=== PATIENT | female | born 1940 | race Caucasian/White ===

== ENCOUNTER 2018-08-03 16:04 | Outpatient (CLI) | payer MEDICARE, BC | END 2018-08-03 16:05 | disposition critical access hospital (66) | LOC: EMS 16:04 | PROVIDERS: ATTEND Surgery | DX: R07.81 Pleurodynia (principal); R05 Cough; R09.89 Other specified symptoms and signs involving the circulatory and respiratory systems | CPT/HCPCS: A0425; A0427 ==

== ENCOUNTER 2018-08-03 16:44 | Emergency (ER) | payer MEDICARE, BC ==
--- NOTE | 2018-08-03 17:33 | ED Physician Documentation ---
PD HPI DYSPNEA - Stated complaint Stated Complaint: L RIB PX/ COUGH - Chief complaint Chief Complaint: Resp - History obtained from History obtained from: Patient - History of Present Illness Timing - onset: How many days ago (She has had pain in the left anterolateral chest over the last several days associated with the coughing and breathing. She has had general weakness progressively over the last several days in particular.), How many weeks ago (has had cough and dyspnea with wheezing for 5- 6 weeks. This is worse the past 1-2 weeks and has had left chest pain with cough and breathing for the past week, worsening. Very weak. Has history of COPD.) Timing - onset during: Light activity, Other (breathing) Timing - duration: Days, Weeks Timing - details: Gradual onset Inciting event(s): URI (has had cough and dyspnea the past few weeks, worsening the past week.) Improved by: O2, Inhaler/neb Worsened by: Coughing Associated symptoms: Cough, Wheezing, Chest pain / discomfort (left chest the past week). No: Fever Similar symptoms before: Has not had sx before Review of Systems Constitutional: reports: Myalgias. denies: Fever Ears: denies: Ear pain Nose: reports: Rhinorrhea / runny nose, Congestion Throat: denies: Sore throat Respiratory: reports: Dyspnea, Cough, Wheezing GI: reports: Nausea. denies: Abdominal Pain, Vomiting, Diarrhea : denies: Dysuria Skin: denies: Rash, Lesions Neurologic: reports: Generalized weakness, Confused (the past day or two). denies: Focal weakness, Numbness, Syncope Endocrine: denies: Weight loss Immunocompromised: denies: Immunocompromised PD PAST MEDICAL HISTORY - Past Medical History Cardiovascular: High cholesterol Respiratory: Emphysema Endocrine/Autoimmune: HyPOthyroidism GI: None : None HEENT: Chronic hearing loss Psych: Depression, Anxiety Musculoskeletal: Other Derm: None - Past Surgical History Past Surgical History: Yes Ortho: Other HEENT: Cataracts - Present Medications Home Medications: Ambulatory Orders Medication Instructions Recorded Confirmed Atorvastatin Calcium 40 mg PO DAILY 04/07/16 04/08/16 Doxepin HCl 250 mg ORAL QPM 04/07/16 04/08/16 Hydrocodone/Acetaminophen 1 tab PO DAILY PRN 04/07/16 04/08/16 [Hydrocodon-Acetaminophen 5-325] ALPRAZolam [Xanax] 0.5 mg PO TID tablet 04/08/16 Acetaminophen [Tylenol] 650 mg PO Q4HR PRN #0 tablet 04/08/16 Albuterol 2.5 mg INH RTQ4H PRN #0 neb 04/08/16 Albuterol Sulfate [Ventolin Hfa] 2 puffs INH QID PRN 04/08/16 04/08/16 Levothyroxine [Synthroid] 100 mcg PO DAILY tablet 04/08/16 Lisinopril 1 tab PO DAILY 08/03/18 08/03/18 - Allergies Allergies/Adverse Reactions: Allergies Allergy/AdvReac Type Severity Reaction Status Date / Time No Known Drug Allergies Allergy Verified 08/03/18 16:59 - Social History Does the pt smoke?: No Smoking Status: Never smoker Does the pt drink ETOH?: No Does the pt have substance abuse?: No - Family History Family history: reports: Non contributory - POLST Patient has POLST: No PD ED PE NORMAL - Vitals Vital signs reviewed: Yes - General General: No acute distress, Well developed/nourished. No: Alert and oriented X 3 (somewhat confused, pale, but conversant. ) - HEENT HEENT: Pharynx benign. No: Moist mucous membranes - Neck Neck: Supple, no meningeal sign, No adenopathy - Cardiac Cardiac: No murmur. No: RRR (tachycardic, regular, no murmur. ) - Respiratory Respiratory: No respiratory distress, Other (some scattered wheezing noted. ). No: Clear bilaterally (decreased with coarse sounds left chest and base. Some tenderness left lateral lower chest wall. No rash nor sores. ) - Abdomen Abdomen: Normal bowel sounds, Soft, Non tender - Female Female : Deferred - Rectal Rectal: Deferred - Back Back: No CVA TTP - Derm Derm: Warm and dry, No rash. 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 No: Alert and oriented X 3 (oriented to person and place, but not time) Eye Opening: Spontaneous Motor: Obeys Commands Verbal: Oriented GCS Score: 15 Results - Vitals Vitals: Vital Signs - 24 hr 08/03/18 08/03/18 08/03/18 16:55 17:14 18:03 Temperature 36.7 C Heart Rate 96 130 H 128 H Respiratory 22 23 20 Rate Blood Pressure 92/65 86/69 L O2 Saturation 94 98 08/03/18 08/03/18 08/03/18 18:18 19:43 20:24 Temperature Heart Rate 125 H 110 H 105 H Respiratory 17 16 16 Rate Blood Pressure 115/88 H 80/50 L 83/51 L O2 Saturation 97 97 100 08/03/18 08/03/18 08/03/18 20:58 21:16 21:30 Temperature Heart Rate 108 H 109 H 111 H Respiratory 16 18 14 Rate Blood Pressure 87/49 L 78/51 L 90/49 L O2 Saturation 98 98 98 08/03/18 08/03/18 08/03/18 21:50 22:19 23:04 Temperature Heart Rate 110 H 113 H 114 H Respiratory 16 16 16 Rate Blood Pressure 99/63 110/61 93/60 O2 Saturation 100 98 90 L Oxygen O2 Source Room air Oxygen Flow Rate 3 - Labs Labs: Laboratory Tests 08/03/18 08/03/18 08/03/18 17:30 17:30 17:30 WBC 33.2 H RBC 4.16 L Hgb 12.9 Hct 40.4 MCV 97.0 MCH 30.9 MCHC 31.9 L RDW 14.6 Plt Count 370 MPV 7.5 L Neut # (Auto) Not Reportable Lymph # (Auto) Not Reportable [place] # (Auto) Not Reportable Eos # (Auto) Not Reportable Baso # (Auto) Not Reportable Absolute Nucleated RBC Not Reportable Total Counted 100 Band Neuts % (Manual) 8 Abnorm Lymph % (Manual) 0 Nucleated RBC % Not Reportable Neutrophils # (Manual) 31.9 H Lymphocytes # (Manual) 0.3 L Monocytes # (Manual) 1.0 Eosinophils # (Manual) 0.0 Basophils # (Manual) 0.0 Differential Comment MANUAL DIFFERENTIAL Manual Slide Review Indicated Platelet Estimate NORMAL (130-450,000) Platelet Morphology NORMAL APPEARANCE RBC Morph Micro Appear NORMAL APPEARANCE Sodium 131 L Potassium 4.5 Chloride 100 L Carbon Dioxide 22 Anion Gap 9.0 BUN 22 H Creatinine 1.4 H Estimated GFR (MDRD) 37 L Glucose 92 Lactic Acid Calcium 8.8 Magnesium Total Bilirubin 1.1 H AST 29 ALT 15 Alkaline Phosphatase 154 H Troponin I < 0.04 B-Natriuretic Peptide Total Protein 6.4 L Albumin 2.5 L Globulin 3.9 Albumin/Globulin Ratio 0.6 L Lipase 17 L Urine Color Urine Clarity Urine pH Ur Specific [place] Urine Protein Urine Glucose (UA) Urine Ketones Urine Occult Blood Urine Nitrite Urine Bilirubin Urine Urobilinogen Ur Leukocyte Esterase Ur Microscopic Review Urine Culture Comments 08/03/18 08/03/18 08/03/18 18:16 18:16 18:16 WBC RBC Hgb Hct MCV MCH MCHC RDW Plt Count MPV Neut # (Auto) Lymph # (Auto) [place] # (Auto) Eos # (Auto) Baso # (Auto) Absolute Nucleated RBC Total Counted Band Neuts % (Manual) Abnorm Lymph % (Manual) Nucleated RBC % Neutrophils # (Manual) Lymphocytes # (Manual) Monocytes # (Manual) Eosinophils # (Manual) Basophils # (Manual) Differential Comment Manual Slide Review Platelet Estimate Platelet Morphology RBC Morph Micro Appear Sodium Potassium Chloride Carbon Dioxide Anion Gap BUN Creatinine Estimated GFR (MDRD) Glucose Lactic Acid 2.1 Calcium Magnesium 2.1 Total Bilirubin AST ALT Alkaline Phosphatase Troponin I B-Natriuretic Peptide 84 Total Protein Albumin Globulin Albumin/Globulin Ratio Lipase Urine Color Urine Clarity Urine pH Ur Specific [place] Urine Protein Urine Glucose (UA) Urine Ketones Urine Occult Blood Urine Nitrite Urine Bilirubin Urine Urobilinogen Ur Leukocyte Esterase Ur Microscopic Review Urine Culture Comments 08/03/18 22:55 WBC RBC Hgb Hct MCV MCH MCHC RDW Plt Count MPV Neut # (Auto) Lymph # (Auto) [place] # (Auto) Eos # (Auto) Baso # (Auto) Absolute Nucleated RBC Total Counted Band Neuts % (Manual) Abnorm Lymph % (Manual) Nucleated RBC % Neutrophils # (Manual) Lymphocytes # (Manual) Monocytes # (Manual) Eosinophils # (Manual) Basophils # (Manual) Differential Comment Manual Slide Review Platelet Estimate Platelet Morphology RBC Morph Micro Appear Sodium Potassium Chloride Carbon Dioxide Anion Gap BUN Creatinine Estimated GFR (MDRD) Glucose Lactic Acid Calcium Magnesium Total Bilirubin AST ALT Alkaline Phosphatase Troponin I B-Natriuretic Peptide Total Protein Albumin Globulin Albumin/Globulin Ratio Lipase Urine Color YELLOW Urine Clarity CLEAR Urine pH 5.5 Ur Specific [place] 1.025 Urine Protein NEGATIVE Urine Glucose (UA) NEGATIVE Urine Ketones NEGATIVE Urine Occult Blood NEGATIVE Urine Nitrite NEGATIVE Urine Bilirubin NEGATIVE Urine Urobilinogen 0.2 (NORMAL) Ur Leukocyte Esterase NEGATIVE Ur Microscopic Review NOT INDICATED Urine Culture Comments NOT INDICATED - Rads (name of study) chest xray Radiology: Prelim report reviewed (left effusion and infiltrate. See report), See rad report chest CT Radiology: Prelim report reviewed (loculated effusion on left. Consolidation of lower lobe. see final report. ) PD MEDICAL DECISION MAKING - ED course Complexity details: reviewed results, re-evaluated patient (She is given a nebulizer treatment and also IV fluids with fluid bolusing of a couple of liters. This improved her blood pressure slowly and decreased her heart rate. However she did have chest x-ray showing likely significant pneumonia and effusion and had an elevated white count of 33,000. Her lactate was not abnormal but she still had markers of tachycardia and hypotension suggesting sepsis. I talked with her hospitalist and we do not have any ICU beds available and the patient did not seem to meet floor criteria. We therefore look to transfer her to another facility. Their first request was [facility] but they did not have any hospital beds available. The patient has been to [facility] previously and her insurance is affiliated with them so I talked with Debi Garcia and they are able to accept the patient there. She does have improved heart rate and her blood pressure has been either above 100 systolic or recent reading of 92/65. I reviewed those numbers with the hospitalist from [facility] and he thought she would meet intermediate to level of care criteria and did not need ICU at their facility. The patient is transferred to their for further care. She did receive IV fluids as well as antibiotics here for infection.), considered differential, d/w patient Departure - Departure Disposition: 02 Transfer Acute Care Hosp Clinical Impression: COPD exacerbation, Tachycardia, Pleural effusion, left Pneumonia Qualifiers: Pneumonia type: due to unspecified organism Laterality: left Lung location: unspecified part of lung Qualified Code(s): J18.9 - Pneumonia, unspecified organism Dyspnea Qualifiers: Dyspnea type: shortness of breath Qualified Code(s): R06.02 - Shortness of breath Condition: Stable Record reviewed to determine appropriate education?: Yes
[2018-08-03 17:37] LABS: BASOPHILS % (AUTO) 0.1 %; HGB - HEMOGLOBIN 12.9 g/dL (12.0-16.0); LYMPHOCYTES % (AUTO) 2.8 %; MEAN CORPUSCULAR HEMOGLOBIN 30.9 pg (27.0-31.0); MEAN CORPUSCULAR HGB CONC 31.9 g/dL (32.0-36.0); MEAN PLATELET VOLUME 7.5 fL (7.9-10.8); MONOCYTES % (AUTO) 3.5 %; NEUTROPHILS % (AUTO) 93.6 %; PLT - PLATELET COUNT 370 10^3/uL (130-450); RED BLOOD COUNT 4.16 10^6/uL (4.20-5.40); RED CELL DISTRIBUTION WIDTH 14.6 % (12.0-15.0); WHITE BLOOD COUNT 33.2 x10^3/uL (4.8-10.8)
[2018-08-03 17:45] LABS: ABNORMAL LYMPHS % (MANUAL) 0 %
[2018-08-03 17:51] LABS: ALBUMIN 2.5 g/dL (3.2-5.5); ALBUMIN/GLOBULIN RATIO 0.6 (1.0-2.2); BILIRUBIN,TOTAL 1.1 mg/dL (0.2-1.0); CALCIUM 8.8 mg/dL (8.5-10.3); CREATININE 1.4 mg/dL (0.4-1.0); TOTAL PROTEIN 6.4 g/dL (6.7-8.2)
[2018-08-03] MEDS ORDERED: IPRATROPIUM/ALBUTEROL 3 ML NEB INH STA (17:51)
[2018-08-03] MEDS ORDERED: MORPHINE 10 MG/ML VIAL IVP STA (17:51)
[2018-08-03] MEDS ORDERED: KETOROLAC 15 MG/ML VIAL IVP STA (17:51)
[2018-08-03] MEDS ORDERED: SODIUM CHLORIDE 0.9% 1,000 ML IV ONE ×3 (17:52→20:13)
[2018-08-03 18:06] LABS: BAND NEUTROPHILS % (MANUAL) 8 %; LYMPHOCYTES # (MANUAL) 0.3 10^3/uL (1.5-3.5); LYMPHOCYTES % (MANUAL) 1 %; NEUTROPHILS # (MANUAL) 31.9 10^3/uL (1.5-6.6); NEUTROPHILS % (MANUAL) 88 %
[2018-08-03 18:07] LABS: PLATELET MORPHOLOGY NORMAL APPEARANCE (NORMAL); RBC MORPHOLOGY (MULTIPLE) NORMAL APPEARANCE (NORMAL)
[2018-08-03 18:08] LABS: DIFFERENTIAL COMMENT MANUAL DIFFERENTIAL; PLATELET ESTIMATE, MANUAL NORMAL (130-450,000) (NORMAL)
[2018-08-03] MEDS ORDERED: cefTRIAXone 1 GM VIAL IVP STA (19:05)
[2018-08-03] MEDS ORDERED: AZITHROMYCIN INJ 500 MG in SODIUM CHLORIDE 0.9% 250 ML IV STA (19:05)
--- NOTE | 2018-08-03 19:31 | XRAY Report ---
Reason: cough rib pain Procedure Date: 08/03/2018 Accession Number: [id number] / [id number] Procedure: XR - Ribs w/PA Chest LT CPT Code: FULL RESULT: EXAM: LEFT RIB RADIOGRAPHY. EXAM DATE: 08/03/2018 06:57 PM. CLINICAL HISTORY: Cough , left rib pain. Confusion. No known trauma. COMPARISON: None. TECHNIQUE: 1 view of the chest and 2 views of the ribs. FINDINGS: Bones: Suspect lytic expansile lesion anterior aspect left sixth rib. Lungs: Extensive pleural and parenchymal opacities. No pneumothorax. Right lung is clear. Mediastinum: Mild [id number] mediastinal shift. Other: None. IMPRESSION: Suspect inflammatory or malignant process involving the left hemithorax. CT chest with contrast recommended. RADIA
[2018-08-03] MEDS ORDERED: DEXAMETHASONE 10 MG/ML VIAL IVP STA (19:58)
[2018-08-03] MEDS ORDERED: IOVERSOL 320 100 ML VIAL IVP ONE ×2 (21:24→21:54)
--- NOTE | 2018-08-03 22:20 | CT Report ---
Reason: left chest infiltrate/ possible mass Procedure Date: 08/03/2018 Accession Number: [id number] / [id number] Procedure: CT - Chest W/ CPT Code: FULL RESULT: EXAM: CT CHEST EXAM DATE: 08/03/2018 09:52 PM. CLINICAL HISTORY: Left chest infiltrate/ possible mass. COMPARISONS: None. TECHNIQUE: Routine helical CT imaging was performed through the chest. IV contrast: 80 mL [id number]. Reconstructions: Coronal and sagittal. In accordance with CT protocol optimization, one or more of the following dose reduction techniques were utilized for this exam: automated exposure control, adjustment of mA and/or KV based on patient size, or use of iterative reconstructive technique. FINDINGS: Lungs and Pleura: Moderate consolidation is noted within the lingula. Heterogeneous density of the medial portion of the lingula is noted (image 40 series 3). It is uncertain if this represents an area of infection versus developing abscess. Consolidation noted within the anterior portion of the left lower lobe, with features suggestive of compressive atelectasis. There is a loculated medium to large left-sided pleural effusion. Slight enhancement of the pleural lining is noted, with adjacent fat stranding of the mediastinum. Findings raise the possibility of empyema. There is mild atelectatic change within the right lower lobe. Central Airways: Visualized central airways are without suspicious filling defects. Chest Wall: Small as well as mildly enlarged anterior cardiophrenic angle lymph nodes are noted, measuring up to 11.1 mm. Thyroid: No significant abnormality. Mediastinum: Increased number of small as well as borderline enlarged mediastinal lymph nodes are noted in the subcarinal location. Heart: Normal in size. No significant pericardial effusion. Aorta: Normal caliber. Upper Abdomen: Moderate hepatic steatosis is present. Severe calcific atherosclerosis. Bones: No suspicious bony lesions evident. Bones are osteopenic. There is a superior endplate compression fracture of L1 of undetermined age. Multilevel degenerative change within the spine. IMPRESSION: 1. Small to medium-sized area of lingular consolidation. Heterogeneous appearance of the consolidated portion with rounded configuration is noted medially. This measures 2.5 cm. This may be tumefactive infection versus a pulmonary parenchymal abscess. 2. Underlying neoplasm is felt to be less likely, but difficult to entirely exclude. As a result, consider follow-up examination at 1 month after treatment to assess for interim change. If there are no clinical or biochemical markers of infection, further assessment could be considered with a PET/CT. 3. There is a medium to large left-sided effusion. Subtle pleural enhancement and adjacent mediastinal fat stranding raise the possibility of underlying empyema. Loculated component noted, especially posturally. 4. Mild mediastinal subcarinal lymphadenopathy, presumed reactive. RADIA
[2018-08-03 22:59] LABS: BILIRUBIN,URINE NEGATIVE (NEGATIVE); GLUCOSE, URINE (UA) NEGATIVE (NEGATIVE); KETONES,URINE (UA) NEGATIVE (NEGATIVE); LEUKOCYTE ESTERASE, URINE NEGATIVE (NEGATIVE); NITRITE,URINE NEGATIVE (NEGATIVE); OCCULT BLOOD,URINE NEGATIVE (NEGATIVE); PH,URINE 5.5 PH (5.0-7.5); PROTEIN,URINE NEGATIVE (NEGATIVE); UROBILINOGEN,URINE 0.2 (NORMAL) E.U./dL (NORMAL)
[2018-08-03 23:02] LABS: CLARITY,URINE CLEAR (CLEAR)
[2018-08-03 23:05] VITALS: BP 93/60
== END 2018-08-03 23:48 | disposition short-term general hospital (02) ==
LOC: EDUNIT# → ED 16:44
DX: J18.9 Pneumonia, unspecified organism (principal); J44.1 Chronic obstructive pulmonary disease with (acute) exacerbation; R00.0 Tachycardia, unspecified; J90 Pleural effusion, not elsewhere classified; D72.829 Elevated white blood cell count, unspecified; I95.9 Hypotension, unspecified
CPT/HCPCS: 36415; 51702; 71101; 71260; 80053; 81003; 83605; 83690; 83735; 83880; 84484; 85025; 87040; 93005; 94640; 96361; 96365; 96375; 99285; Q9967; 81001; 87086

== ENCOUNTER 2018-08-03 23:27 | Outpatient (CLI) | payer MEDICARE, BC | END 2018-08-03 23:28 | disposition short-term general hospital (02) | LOC: EMS 23:27 | PROVIDERS: ATTEND Surgery | DX: J90 Pleural effusion, not elsewhere classified (principal); R09.89 Other specified symptoms and signs involving the circulatory and respiratory systems; R41.0 Disorientation, unspecified | CPT/HCPCS: A0425; A0426 ==

== ENCOUNTER 2020-05-28 15:26 | Emergency (ER) | payer MEDICARE, OTHER ==
--- NOTE | 2020-05-28 16:33 | ED Physician Documentation ---
History of Present Illness - Stated complaint Stated Complaint: FALL - Chief complaint Chief Complaint: Trauma Ext - History obtained from History obtained from: Patient, Family - History of Present Illness Timing: How many days ago (3) Pain level max: 5 Pain level now: 4 - Additonal information Additional information: 80-year-old female presents to the emergency department complaining of pain to the right hand and wrist. She states that this occurred after a fall 3 days ago. Increased swelling today. She is also having difficulty getting the ring off of the right finger. This was a mechanical fall. Did not strike her head. No headache. No neck or back pain. Worse with movement, better with rest. Patient took 3 Xanax this morning and 3 more prior to coming to the emergency department. states that when she takes that much she slurs her words and becomes drowsy Review of Systems Unable to obtain: Dementia Constitutional: denies: Fever, Chills Respiratory: denies: Cough GI: denies: Nausea, Vomiting, Diarrhea Skin: denies: Rash Musculoskeletal: denies: Neck pain, Back pain Neurologic: denies: Headache, Head injury PD PAST MEDICAL HISTORY - Past Medical History Past Medical History: Yes Cardiovascular: High cholesterol Respiratory: Emphysema Neuro: Dementia Endocrine/Autoimmune: HyPOthyroidism GI: None : None HEENT: Chronic hearing loss Psych: Depression, Anxiety Musculoskeletal: Other Derm: None - Past Surgical History Past Surgical History: Yes Ortho: Other HEENT: Cataracts - Present Medications Home Medications: Ambulatory Orders Medication Instructions Recorded Confirmed Doxepin HCl 250 mg ORAL QPM 04/07/16 05/28/20 ALPRAZolam [Xanax] 0.5 mg PO TID tablet 04/08/16 05/28/20 Albuterol 2.5 mg INH RTQ4H PRN #0 neb 04/08/16 05/28/20 Albuterol Sulfate [Ventolin Hfa] 2 puffs INH QID PRN 04/08/16 05/28/20 Levothyroxine [Synthroid] 100 mcg PO DAILY tablet 04/08/16 05/28/20 lisinopriL [Lisinopril] 1 tab PO DAILY 08/03/18 05/28/20 - Allergies Allergies/Adverse Reactions: Allergies Allergy/AdvReac Type Severity Reaction Status Date / Time No Known Drug Allergies Allergy Verified 08/03/18 16:59 - Social History Does the pt smoke?: No Smoking Status: Never smoker Does the pt drink ETOH?: No Does the pt have substance abuse?: No - Immunizations Immunizations are current?: Yes - POLST Patient has POLST: No PD ED PE NORMAL - Vitals Vital signs reviewed: Yes - General General: No acute distress, Other (alert, oriented x2) - HEENT HEENT: Atraumatic, PERRL, Moist mucous membranes - Neck Neck: Supple, no meningeal sign, No bony TTP - Cardiac Cardiac: RRR - Respiratory Respiratory: No respiratory distress, Clear bilaterally - Derm Derm: Warm and dry - Extremities Extremities: Other (TTP R wrist and R forearm. Swelling and brusing over the hand and wrist. NVI. ring on ring finger) - Neuro Neuro: Other (alert) - Psych Psych: Normal mood, Normal affect Results - Vitals Vitals: Vital Signs - 24 hr 05/28/20 05/28/20 15:41 17:09 Temperature 36.4 C L 37 C Heart Rate 95 88 Respiratory 18 16 Rate Blood Pressure 135/73 H 124/68 O2 Saturation 100 96 Oxygen O2 Source Room air - Rads (name of study) R Forearm x-ray Radiology: Prelim report reviewed, EMP read contemporaneously, See rad report (Distal radial and ulnar fractures ) R hand xray Radiology: Prelim report reviewed, EMP read contemporaneously, See rad report (Distal radial and ulnar fractures ) Procedures - Splint (location) R arm Splint applied by: Physician, Tech Type of splint: Fiberglass, Volar cock up Other: Patient tolerated well, No complications, Neurovascular intact, Sling provided PD MEDICAL DECISION MAKING - ED course Complexity details: reviewed results, re-evaluated patient, considered different ial, d/w patient, d/w family ED course: The ring on the ring finger of the right hand was immediately removed with surgical lube. Tolerated well. X-rays reveal fractures of the distal radius and ulna. Placed in a volar splint. We will have her follow-up with orthopedics. Neurovascular intact. No other acute injuries. Patient and family counseled regarding signs and symptoms for which I believe and urgent re- evaluation would be necessary. Patient with good understanding of and agreement to plan and is comfortable going home at this time This document was made in part using voice recognition software. While efforts are made to proofread this document, sound alike and grammatical errors may occur. Departure - Departure Disposition: 01 Home, Self Care Clinical Impression: Closed fracture distal radius and ulna Qualifiers: Encounter type: initial encounter Laterality: right Qualified Code(s): S52.501A - Unspecified fracture of the lower end of right radius, initial encounter for closed fracture Condition: Good Instructions: ED Fx Upper Ext Follow-Up: Provider,Other [Primary Care Provider] - Within 1 week [facility] [Provider Group] - Within 1 week Comments: Return if you worsen. Follow up with your doctor for further care. Wear the splint until released by orthopedics Discharge Date/Time: 05/28/20 17:05
--- NOTE | 2020-05-28 16:46 | XRAY Report ---
PROCEDURE: Forearm RT INDICATIONS: fall, R forearm/wrist pain TECHNIQUE: 2 views of the forearm were acquired. COMPARISON: None. FINDINGS: Comminuted impacted fracture of the distal radial metaphysis and distal ulna. Chondrocalcinosis incidentally noted IMPRESSION: Distal radial and ulnar fractures Reviewed by: Power Brown MD on 05/28/2020 4:44 PM PDT Approved by: Power Brown MD on 05/28/2020 4:44 PM PDT Station ID: [id number]
--- NOTE | 2020-05-28 16:47 | XRAY Report ---
PROCEDURE: Hand 3 View RT INDICATIONS: fall, R hand pain TECHNIQUE: views of the hand(s) acquired. COMPARISON: None. FINDINGS: Distal radial and ulnar fractures. Chondrocalcinosis incidentally noted. IMPRESSION: Distal radial and ulnar fractures Reviewed by: Power Brown MD on 05/28/2020 4:45 PM PDT Approved by: Power Brown MD on 05/28/2020 4:45 PM PDT Station ID: [id number]
[2020-05-28 17:11] VITALS: BP 124/68
== END 2020-05-28 17:05 | disposition home or self-care (01) ==
LOC: ED 15:26
DX: S52.501A Unspecified fracture of the lower end of right radius, initial encounter for closed fracture (principal); S52.601A Unspecified fracture of lower end of right ulna, initial encounter for closed fracture; W19.XXXA Unspecified fall, initial encounter; Y92.002 Bathroom of unspecified non-institutional (private) residence as the place of occurrence of the external cause
CPT/HCPCS: 29105; 93005

== ENCOUNTER 2020-07-06 17:58 | Outpatient (CLI) | payer MEDICARE, OTHER ==
--- NOTE | 2020-07-06 18:06 | XRAY Report ---
PROCEDURE: Wrist 3 View RT INDICATIONS: COLLES FX OF R RADIUS TECHNIQUE: 3 views of the wrist were acquired. COMPARISON: 05/28/2020 FINDINGS: Bones: 3 views of the wrist demonstrate demineralized bone. Comminuted and impacted fractures of the distal radius and distal ulna are again seen with continued callus formation. There are calcification s in the triangular fibrocartilage consistent with chondrocalcinosis. Soft tissues: No suspicious soft tissue calcifications. IMPRESSION: 1. Healing comminuted and impacted distal radius and ulna fractures. 2. Chondrocalcinosis. Reviewed by: Arnoldo Valdez on 07/06/2020 6:05 PM PST Approved by: Arnoldo Vadlez on 07/06/2020 6:05 PM PST Station ID: [id number]
== END 2020-07-06 23:59 | disposition home or self-care (01) ==
LOC: DI.N 17:58
PROVIDERS: ATTEND Orthopaedic Surgery
DX: S52.531A Colles' fracture of right radius, initial encounter for closed fracture (principal); M11.231 Other chondrocalcinosis, right wrist

== ENCOUNTER 2020-10-02 13:31 | Outpatient (CLI) | payer MEDICARE, OTHER | END 2020-10-02 13:32 | disposition critical access hospital (66) | LOC: EMS 13:31 | PROVIDERS: ATTEND Emergency Medicine | DX: R41.82 Altered mental status, unspecified (principal); R14.0 Abdominal distension (gaseous) | CPT/HCPCS: A0425; A0427 ==

== ENCOUNTER 2020-10-02 14:09 | Inpatient (IN) | payer MEDICARE, OTHER ==
[2020-10-02] MEDS ORDERED: SODIUM CHLORIDE 0.9% IV STA (14:31)
[2020-10-02] MEDS ORDERED: IOVERSOL 320 100 ML VIAL IVP ONE (14:51)
--- NOTE | 2020-10-02 14:59 | XRAY Report ---
PROCEDURE: Chest 1 View X-Ray INDICATIONS: sepsis TECHNIQUE: One view of the chest was acquired. COMPARISON: None FINDINGS: Surgical changes and devices: None. Lungs and pleura: No pleural effusions or pneumothorax. Lungs are clear. Mediastinum: Mediastinal contours appear normal. Heart size is normal. Bones and chest wall: No suspicious bony lesions. Overlying soft tissues appear unremarkable. IMPRESSION: No acute cardiopulmonary pathology. Reviewed by: Esau Aparicio MD on 10/02/2020 2:58 PM PST Approved by: Esau Aparicio MD on 10/02/2020 2:58 PM PST Station ID: [id number]
--- NOTE | 2020-10-02 15:06 | ED Physician Documentation ---
History of Present Illness - Stated complaint Stated Complaint: ALOC - Chief complaint Chief Complaint: Neuro - History obtained from History obtained from: Patient - Additonal information Additional information: Patient is brought to the emergency department by EMS for chief complaint of altered level of consciousness. According to medics, the patient's states that the patient took a fall 3 days ago. She has apparently been at baseline up and till and through midnight last night. At that time, patient had been sleeping and awoke needing to go the bathroom. Her apparently helped her to the bathroom and when she woke up this morning, she seemed confused and drowsy. Patient apparently lives at home and has a history of some degree of dementia with baseline being confused to as to the time, but aware of person and place. Patient apparently can engage in most activities of daily living by herself. She has advanced directive stating DNR with limited interventions, according to medics. They state they did not bring the form with them but the patient's has it with him on the parking lot. Patient's records reveal that patient does not have a history of alcohol abuseongstanding history of anxiety, and has been known to overuse her benzodiazepines. Patient has not consistently been hypotensive in the past. Records reveal she has a history of diabetes and hyperlipidemia, as well as anxiety, depression, and COPD. Review of Systems Unable to obtain: Confused PD PAST MEDICAL HISTORY - Past Medical History Cardiovascular: High cholesterol Respiratory: Emphysema Neuro: Dementia Endocrine/Autoimmune: HyPOthyroidism GI: None : None HEENT: Chronic hearing loss Psych: Depression, Anxiety Musculoskeletal: Other Derm: None - Past Surgical History Past Surgical History: Yes Ortho: Other HEENT: Cataracts - Present Medications Home Medications: Ambulatory Orders Medication Instructions Recorded Confirmed Doxepin HCl 250 mg ORAL QPM 04/07/16 05/28/20 ALPRAZolam [Xanax] 0.5 mg PO TID tablet 04/08/16 05/28/20 Albuterol Sulfate [Ventolin Hfa] 2 puffs INH QID PRN 04/08/16 05/28/20 Albuterol [Proventil] 2.5 mg INH RTQ4H PRN #0 neb 04/08/16 05/28/20 Levothyroxine [Synthroid] 100 mcg PO DAILY tablet 04/08/16 05/28/20 lisinopriL [Lisinopril] 1 tab PO DAILY 08/03/18 05/28/20 - Allergies Allergies/Adverse Reactions: Allergies Allergy/AdvReac Type Severity Reaction Status Date / Time No Known Drug Allergies Allergy Verified 08/03/18 16:59 - Social History Does the pt smoke?: No Smoking Status: Never smoker Does the pt drink ETOH?: No Does the pt have substance abuse?: No - Immunizations Immunizations are current?: Yes - POLST Patient has POLST: No PD ED PE NORMAL - Vitals Vital signs reviewed: Yes - General General: No acute distress, Other (Patient is pale and drowsy. Nearly incomprehensible speech. Arouses to loud voice.) - HEENT HEENT: Atraumatic, PERRL, EOMI, Moist mucous membranes - Neck Neck: Supple, no meningeal sign - Cardiac Cardiac: RRR, No murmur, Strong equal pulses - Respiratory Respiratory: No respiratory distress, Other (Clear bilaterally; decreased air movement bilaterally.) - Abdomen Abdomen: Soft, Other (Marked distention, moderate diffuse tenderness throughout entire abdomen.) - Derm Derm: Warm and dry, No rash, Other (Moderate pallor) - Extremities Extremities: No deformity, No edema, No calf tenderness / cord - Neuro Neuro: Other (Patient moves all 4 extremities passively but does not Distantly follow commands. She does take deep breaths when instructed to do so during exam. Arouses to loud voice and answers to her name, the responses are incomprehensible, due to slurred and unclear speech. No facial droop.) Results - Vitals Vitals: Vital Signs - 24 hr 10/02/20 10/02/20 10/02/20 14:08 14:22 14:35 Temperature 36.1 C L Heart Rate 101 H 96 98 Respiratory 14 19 18 Rate Blood Pressure 91/47 L 92/51 L 95/48 L O2 Saturation 92 100 100 10/02/20 10/02/20 10/02/20 14:50 15:12 15:37 Temperature Heart Rate 98 98 96 Respiratory 24 18 18 Rate Blood Pressure 98/57 L 99/55 L 99/59 L O2 Saturation 100 100 100 10/02/20 10/02/20 15:55 16:24 Temperature 35.5 C L Heart Rate 97 96 Respiratory 23 22 Rate Blood Pressure 101/63 95/67 O2 Saturation 100 100 Oxygen O2 Source Nasal cannula - EKG (time done) 1421 Rate: Rate (enter#) (96) Rhythm: NSR [place]: Normal Intervals: Normal [place] QRS: Normal Ischemia: Non specific changes Compare to prior EKG: Old EKG unavailable Computer interpretation: Agree with computer - Labs Labs: Laboratory Tests 10/02/20 10/02/20 10/02/20 14:59 14:59 14:59 WBC 9.2 RBC 2.94 L Hgb 9.9 L Hct 30.6 L MCV 104.1 H MCH 33.7 H MCHC 32.4 RDW 14.3 Plt Count 141 MPV 10.7 Neut # (Auto) 7.6 H Lymph # (Auto) 0.9 L [place] # (Auto) 0.6 Eos # (Auto) 0.0 Baso # (Auto) 0.1 Absolute Nucleated RBC 0.00 Band Neuts % (Manual) Not Reportable Abnorm Lymph % (Manual) Not Reportable Nucleated RBC % 0.0 Neutrophils # (Manual) Not Reportable Lymphocytes # (Manual) Not Reportable Monocytes # (Manual) Not Reportable Eosinophils # (Manual) Not Reportable Basophils # (Manual) Not Reportable Differential Comment MANUAL=AUTO DIFF Manual Slide Review Indicated Platelet Estimate NORMAL (130-450,000) Platelet Morphology NORMAL APPEARANCE RBC Morph Micro Appear 1+ HYPOCHROMASIA Sodium 141 Potassium 3.6 Chloride 108 Carbon Dioxide 21 Anion Gap 12.0 BUN 70 H Creatinine 2.6 H Estimated GFR (MDRD) 18 L Glucose 78 Lactic Acid 0.9 Calcium 7.5 L Total Bilirubin 0.6 AST 75 H ALT 35 Alkaline Phosphatase 124 H Ammonia Total Protein 4.4 L Albumin 1.9 L Globulin 2.5 Albumin/Globulin Ratio 0.8 L Urine Color Urine Clarity Urine pH Ur Specific [place] Urine Protein Urine Glucose (UA) Urine Ketones Urine Occult Blood Urine Nitrite Urine Bilirubin Urine Urobilinogen Ur Leukocyte Esterase Urine RBC Urine WBC Ur Squamous Epith Cells Urine Bacteria Urine Culture Comments Urine Opiates Screen Ur Oxycodone Screen Urine Methadone Screen Ur Propoxyphene Screen Ur Barbiturates Screen Ur Tricyclics Screen Ur Phencyclidine Scrn Ur Amphetamine Screen U Methamphetamines Scrn U Benzodiazepines Scrn Urine Cocaine Screen U Cannabinoids Screen 10/02/20 10/02/20 14:59 15:15 WBC RBC Hgb Hct MCV MCH MCHC RDW Plt Count MPV Neut # (Auto) Lymph # (Auto) [place] # (Auto) Eos # (Auto) Baso # (Auto) Absolute Nucleated RBC Band Neuts % (Manual) Abnorm Lymph % (Manual) Nucleated RBC % Neutrophils # (Manual) Lymphocytes # (Manual) Monocytes # (Manual) Eosinophils # (Manual) Basophils # (Manual) Differential Comment Manual Slide Review Platelet Estimate Platelet Morphology RBC Morph Micro Appear Sodium Potassium Chloride Carbon Dioxide Anion Gap BUN Creatinine Estimated GFR (MDRD) Glucose Lactic Acid Calcium Total Bilirubin AST ALT Alkaline Phosphatase Ammonia < 10.0 Total Protein Albumin Globulin Albumin/Globulin Ratio Urine Color YELLOW Urine Clarity CLEAR Urine pH 5.5 Ur Specific [place] 1.025 Urine Protein TRACE Urine Glucose (UA) NEGATIVE Urine Ketones NEGATIVE Urine Occult Blood MODERATE H Urine Nitrite NEGATIVE Urine Bilirubin NEGATIVE Urine Urobilinogen 0.2 (NORMAL) Ur Leukocyte Esterase TRACE H Urine RBC 6-10 H Urine WBC 4-5 Ur Squamous Epith Cells RARE Squamous Urine Bacteria Many H Urine Culture Comments INDICATED Urine Opiates Screen POSITIVE H Ur Oxycodone Screen NEGATIVE Urine Methadone Screen NEGATIVE Ur Propoxyphene Screen NEGATIVE Ur Barbiturates Screen NEGATIVE Ur Tricyclics Screen POSITIVE H Ur Phencyclidine Scrn NEGATIVE Ur Amphetamine Screen NEGATIVE U Methamphetamines Scrn NEGATIVE U Benzodiazepines Scrn POSITIVE H Urine Cocaine Screen NEGATIVE U Cannabinoids Screen NEGATIVE - Rads (name of study) head CT Radiology: Final report received, EMP read indepedently, See rad report (NAD) Abd CT Radiology: Final report received, EMP read indepedently, See rad report (Possible colitis; otherwise NAD) PD MEDICAL DECISION MAKING - ED course Complexity details: reviewed old records, reviewed results, re-evaluated patient, considered differential, d/w patient ED course: Pt was worked up with labs, urinalysis, urine drug screen, lactic acid level, ammonia level, and CTs of the head abdomen and pelvis. She had received 1400 cc of normal saline in route by EMS, and had been persistently hypotensive with systolics in the 90s. She did finish the liter of fluid that she was on for a total of 2 L between EMS and ourselves. Labs showed markedly increased BUN and creatinine compared with prior levels from 2019 and previously. Her lactic acid level, ammonia level is, LFTs, and white count were all unremarkable. I suspected the patient was dehydrated and did give her another liter of fluid. She did produce dark yellow urine Via Pereyra catheter which we have placed. Urinalysis showed trace amount of leukocyte esterase with some bacteria and only small amount of white cells. Her urine drug screen was positive for TCAs, benzos, and opiates. Patient continued to have altered mental status, and I felt she should be admitted. I spoke with Dr. Baker, and she did agree to admit the patient to her service. We will hold off on antibiotics for the urine for now, as the pt is afebrile and WBC count is normal. Departure - Departure Disposition: ED Place in Observation Clinical Impression: Dehydration Altered mental status Qualifiers: Altered mental status type: unspecified Qualified Code(s): R41.82 - Altered mental status, unspecified Condition: Serious
[2020-10-02 15:09] LABS: BASOPHILS # (AUTO) 0.1 10^3/uL (0.0-0.1); BASOPHILS % (AUTO) 0.8 %; EOSINOPHILS % (AUTO) 0.1 %; HGB - HEMOGLOBIN 9.9 g/dL (12.0-16.0); LYMPHOCYTES # (AUTO) 0.9 10^3/uL (1.5-3.5); LYMPHOCYTES % (AUTO) 9.9 %; MEAN CORPUSCULAR HEMOGLOBIN 33.7 pg (27.0-31.0); MEAN CORPUSCULAR HGB CONC 32.4 g/dL (32.0-36.0); MEAN CORPUSCULAR VOLUME 104.1 fL (81.0-99.0); MEAN PLATELET VOLUME 10.7 fL (7.9-10.8); MONOCYTES # (AUTO) 0.6 10^3/uL (0.0-1.0); MONOCYTES % (AUTO) 6.3 %; NEUTROPHILS # (AUTO) 7.6 10^3/uL (1.5-6.6); NEUTROPHILS % (AUTO) 82.6 %; PLT - PLATELET COUNT 141 10^3/uL (130-450); RED BLOOD COUNT 2.94 10^6/uL (4.20-5.40); RED CELL DISTRIBUTION WIDTH 14.3 % (12.0-15.0); WHITE BLOOD COUNT 9.2 x10^3/uL (4.8-10.8)
[2020-10-02 15:19] LABS: ALBUMIN 1.9 g/dL (3.2-5.5); ALBUMIN/GLOBULIN RATIO 0.8 (1.0-2.2); BILIRUBIN,TOTAL 0.6 mg/dL (0.2-1.0); CALCIUM 7.5 mg/dL (8.5-10.3); CREATININE 2.6 mg/dL (0.4-1.0); TOTAL PROTEIN 4.4 g/dL (6.7-8.2)
[2020-10-02] MEDS ORDERED: SODIUM CHLORIDE 0.9% 1,000 ML IV STA (15:34)
[2020-10-02 15:37] LABS: MUDS CUTOFF CONCENTRATIONS CUTOFF CONC BELOW:
[2020-10-02 15:40] LABS: GLUCOSE, URINE (UA) NEGATIVE (NEGATIVE); KETONES,URINE (UA) NEGATIVE (NEGATIVE); LEUKOCYTE ESTERASE, URINE TRACE (NEGATIVE); NITRITE,URINE NEGATIVE (NEGATIVE); OCCULT BLOOD,URINE MODERATE (NEGATIVE); PH,URINE 5.5 PH (5.0-7.5); PROTEIN,URINE TRACE mg/dL (NEGATIVE); UROBILINOGEN,URINE 0.2 (NORMAL) E.U./dL (NORMAL)
[2020-10-02 15:41] LABS: CLARITY,URINE CLEAR (CLEAR)
[2020-10-02 15:43] LABS: BILIRUBIN,URINE NEGATIVE (NEGATIVE); ICTOTEST,URINE NEGATIVE
[2020-10-02 15:45] LABS: SQUAMOUS EPITHELIAL CELL,UR RARE Squamous (<= Few)
[2020-10-02 15:46] LABS: BACTERIA,URINE Many /HPF (None Seen)
[2020-10-02 15:49] LABS: AMPHETAMINE SCREEN,URINE NEGATIVE (NEGATIVE); BENZODIAZEPINES SCREEN, URINE POSITIVE (NEGATIVE); COCAINE SCREEN URINE NEGATIVE (NEGATIVE); METHADONE SCREEN, URINE NEGATIVE (NEGATIVE); METHAMPHETAMINES SCREEN, URINE NEGATIVE (NEGATIVE); OPIATE SCREEN, URINE POSITIVE (NEGATIVE); OXYCODONE SCREEN, URINE NEGATIVE (NEGATIVE); PROPOXYPHENE SCREEN, URINE NEGATIVE (NEGATIVE); TRICYCLIC ANTIDEPRESSANT,URINE POSITIVE (NEGATIVE)
--- NOTE | 2020-10-02 16:00 | CT Report ---
PROCEDURE: HEAD WO INDICATIONS: altered LOC TECHNIQUE: Noncontrast 4.5 mm thick angled axial sections acquired from the foramen magnum to the vertex. For r adiation dose reduction, the following was used: automated exposure control, adjustment of mA and/or kV according to patient size. COMPARISON: 04/07/2016 FINDINGS: Image quality: Excellent. CSF spaces: Basal cisterns are patent. No extra-axial fluid collections. Ventricles are normal in size and shape. Brain: No midline shift. No intracranial masses or hemorrhage. [place]-white matter interface is norm al. Brain parenchymal volume loss is seen. Chronic small vessel ischemic change can be seen. Skull and face: Calvarium and visualized facial bones are intact, without suspicious lesions. Sinuses: Visualized sinuses and mastoids are clear. IMPRESSION: Unremarkable intracranial study for age, without an imaging explanation found for the pa paul's presenting history of altered level of consciousness. Reviewed by: Scotty Gaitan MD on 10/02/2020 2:58 PM AKST Approved by: Scotty Gaitan MD on 10/02/2020 2:58 PM [place] Station ID: [id number]
--- NOTE | 2020-10-02 16:16 | CT Report ---
PROCEDURE: Abdomen/Pelvis WO INDICATIONS: abdominal distention, diffuse tend, ALOC TECHNIQUE: Noncontrast 5 mm thick sections acquired from the diaphragms to the symphysis. 5 mm coronal and sagi ttal reformats were then performed. For radiation dose reduction, the following was used: automated exposure control, adjustment of mA and/or kV according to patient size. COMPARISON: None. FINDINGS: Image quality: Excellent. ABDOMEN: Lung bases: Small infiltrate/atelectasis in posterior aspect of right lung base is seen. Heart size i s enlarged, no pericardial effusion. Solid organs: Liver and spleen are normal in size. Gallbladder is distended and shows no gross abno rmality. Pancreas is normal in contours. No adrenal nodules. Kidneys are normal in size, without h ydronephrosis or nephrolithiasis. Peritoneum and bowel: There is no evidence of bowel obstruction. Suggestion of ascending, transverse and descending colon wall thickening is seen with pericolonic fat stranding predominantly involving d istal transverse colon and descending colon suggestive of infectious inflammatory colitis. Colonic di verticulosis is seen, no CT evidence of acute diverticulitis. Appendix is visualized and is within no rmal limits. No free fluid or free air. No abscess collection. Nodes and vessels: No retroperitoneal or mesenteric adenopathy by size criteria. Aorta and inferior vena cava are normal in caliber. Moderate atherosclerotic calcifications are noted throughout abdomi nal aorta. Miscellaneous: No ventral hernias. PELVIS: Genitourinary:. A catheter is seen in a partially distended urinary bladder with suggestion of diffus e bladder wall thickening, no discrete bladder wall mass is seen. Uterus and bilateral adnexa show no gross abnormality. Miscellaneous: No inguinal hernias or adenopathy. Bones: No suspicious bony lesions. Chronic-appearing anterior wedge compression deformity is noted a t L1 level with up to 40% loss of L1 vertebral body height anteriorly. Degenerative disc disease thro ughout lower thoracic and lumbar spine is seen. IMPRESSION: 1. Finding is concerning for infectious or inflammatory colitis predominantly involving left colon lo ops. No discrete abscess collection. No free fluid or free air. Colonic diverticulosis without eviden ce of acute diverticulitis. Appendix is within normal limits. 2. Fully catheter in a decompressed urinary bladder. No renal stone or hydronephrosis. Questionable b ladder wall thickening. No discrete bladder wall mass. 3. Right basilar atelectasis/small infiltrate. Reviewed by: Esau Aparicio MD on 10/02/2020 4:15 PM PST Approved by: Esau Aparicio MD on 10/02/2020 4:15 PM PST Station ID: [id number]
[2020-10-02 16:25] LABS: DIFFERENTIAL COMMENT MANUAL=AUTO DIFF; PLATELET ESTIMATE, MANUAL NORMAL (130-450,000) (NORMAL); PLATELET MORPHOLOGY NORMAL APPEARANCE (NORMAL)
[2020-10-02] MEDS ORDERED: ACETAMINOPHEN 325 MG TABLET PO PRN (16:42)
[2020-10-02] MEDS ORDERED: ONDANSETRON 4 MG/2 ML VIAL IVP PRN (16:42)
[2020-10-02] MEDS ORDERED: oxyCODONE 5 MG TABLET PO PRN (16:42)
[2020-10-02] MEDS ORDERED: ONDANSETRON ODT 4 MG TABLET TL PRN (16:42)
[2020-10-02] MEDS ORDERED: SODIUM CHLORIDE FLUSH 0.9% 10 ML SYRINGE IVP PRN (16:42)
--- NOTE | 2020-10-02 16:53 | HISTORY & PHYSICAL EXAMINATION ---
Chief Complaint - Chief Complaint Chief Complaint: Confusion and slurred speech starting in the middle of the night History of Present Illness - Admitted From Admitted From:: Home via EMS - History Obtained From Records Reviewed: [facility] History obtained from: Dr. Gaston Exam Limitations: Patient is sedated and difficult to arouse - History of Present Illness HPI Comment/Other: She has a history of anxiety, hypertension, hyperlipidemia and hypothyroidism. She was admitted in March 2016 for tremors. She has severe anxiety and she takes Xanax 3 times a day. She had run out of Xanax with that admission and was possibly going through withdrawal. She was then seen in the emergency room May 2020. She had fallen and hurt her hand, and in that evaluation she had taken 3 Xanax in the morning, and forgotten that she taken those 3 Xanax and took another 3. There is a strong suspicion that the fall and the Xanax were linked. She was sent home from there. Her states that he gives her 2 Xanax in the morning all at once. And that seems to carry her during the day. The prescription bottle says 1 Xanax 3 times a day but he just finds it more useful to give it to her first thing in the morning. She gets 5 doxepin tablets at night. Her was able to speak to me on the phone. He states that she has baseline cognitive deficits. He would call her with dementia. While she always knows who he is, and where she is in their house, she is not so well oriented when she leaves the house. She drinks a liter of vodka a day and has done so for quite some time. She pretty much drinks all day long and this contributes to falling. Even if she wakes up in the middle the night, she will have another drink and go back to sleep. 2 years ago she was seen at [facility] for pneumonia and had a gisela course "I thought we were going to lose her". Ever since then she really loses her balance easily and her vodka drinking contributes to those falls. She does not fall every day but she falls fr equently. On September 25 and she was having difficulty because of back pain. He wanted her to have a shower so he gave her some of his Vicodin to help her with the pain. 3 days ago she fell while he was standing next to her. Her legs just gave out from underneath her. She really did not hit anything. He got her up and she did fine. Later that day she was sitting on the edge of the bed and somehow laid backwards and missed the bed and landed on the floor. Yesterday he noticed that she had a bruise over her eyebrow and he did not know where she got that from. She stopped eating and drinking 2 days ago. He cannot say why. He says that her abdomen seemed distended, tender, and she seemed uncomfortable, irritable, and full of gas. Yesterday, in desperation to try and get her to sleep, he gave her Xanax, 0.5 mg tablets, 3 in the morning. Then later in the evening he gave her 2 xanax and 5 doxepin tablets. She went to bed at 5:30 with those pills. At 11 PM or 11:30 she got up to pee. He changed her underwear, pajamas, got her back in bed. She slept all night long and this morning she just could not get out of bed anymore. So he brought her to the hospital. So he called EMS and they brought her to the emergency room and she was seen by Dr. Gaston. EMS gave her 1400 cc in their ambulance ride. Temperature was 36.1, heart rate 101, respirations 14 and blood pressure was 91/47. 92% saturated. Dr. Gaston gave her the rest of the liter that was hanging, and then another liter and a half in the emergency room. Her blood pressure has remained in the 90s systolic. She has moist mucous membranes. No meningeal signs. No respiratory distress. She has a distended abdomen with moderate diffuse tenderness throughout the entire abdomen. She did really is not following commands. Will arouse to loud voice and answer to her name but responses are incomprehensible. She has slurred and unclear speech. No facial droop. She has a newly elevated BUN. At 70. Baseline is 13 and 14. Creatinine is also elevated to 2.6. It is usually 0.6. LFTs are elevated. AST 75, ALT 35, alk phos 124. Ammonia is less than 10. Lactic acid 0.9. White cell count is normal at 9.2, she is anemic at 9.9 with usual hemoglobin 12.9. MCV is 104. Head CT has unremarkable intracranial study. No acute intracranial abnormalities. And abdomen pelvis CT has a catheter in place. She has small infiltrate atelectasis in the posterior aspect of the right lung base. There is a suggestion of a ascending, transverse, and descending colon wall thickness seen with pericolonic fat stranding predominantly involving the distal transverse colon and descending colon suggestive of infectious inflammatory colitis. Diverticulosis is seen without diverticulitis. She is now admitted observation status for metabolic encephalopathy and colitis History - Past Medical History Cardiovascular: reports: High cholesterol Respiratory: reports: Emphysema, Pneumonia (with pleural effusion 2 yrs ago @ ) Neuro: reports: Dementia Endocrine/Autoimmune: reports: HyPOthyroidism GI: reports: None HAND CLIPPER: reports: Other () : reports: None HEENT: reports: Chronic hearing loss Psych: reports: Depression, Anxiety Musculoskeletal: reports: Chronic back pain Derm: reports: None MRSA Hx?: No - Past Surgical History Ortho: reports: Other HEENT: reports: Cataracts - Family & Social History Family History Comment/Other: Mom of cancer and had anxiety and depression. Dad of old age. 1 sister, her twin, also had alcoholism but has been sober for years and is healthy. 2 daughters suffer from anxiety and depression, other child is healthy Living arrangement: At home Living Situation: With spouse/s.o. Social History Notes: Patient and her live in [facility]. They are originally from the [facility]. They moved here approximately 2005. They have been for 34 years. It is a third marriage for her. They do not have children together. She has 2 children from first marriage, and a 3rd child from her second marriage. She smoked 1 pack/day for 40 years and quit 2003. She has no history of recreational substance abuse. Alcohol abuse is 1 liter vodka a day for years now. He can't tell me how long and a beer once in a while. - Substance History Abuse: Recurrent use of substance despite neg consequences: Alcohol Abuse Issues: Intoxication, Anxiety Disorder, Delirium Dependence: Experiences withdrawal or developed tolerances: Alcohol Dependence Issues: Anxiety Disorder, Delirium, Dementia, Withdrawal - POLST Patient has POLST: Yes POLST Status: DNR Meds/Allgy - Home Medications Home Medications: Ambulatory Orders Medication Instructions Recorded Confirmed Doxepin HCl 250 mg ORAL QPM 04/07/16 05/28/20 lisinopriL [Lisinopril] 1 tab PO DAILY 08/03/18 05/28/20 ALPRAZolam [Alprazolam] 0.5 mg PO TID PRN 10/02/20 Levothyroxine [Synthroid] 100 mcg PO .FRIDAY-Friday10/02/20 - Allergies Allergies/Adverse Reactions: Allergies Allergy/AdvReac Type Severity Reaction Status Date / Time No Known Drug Allergies Allergy Verified 08/03/18 16:59 Review of Systems - Other Findings Other Findings: At this time I am unable to do a review of systems with her. The description of who she is is from her . She has been gradually getting worse with memory loss, and her in anxiety and depression waxes and wanes in severity. She has been using benzodiazepines and alcohol for quite some time to control that. He reluctantly admits that he never has shared with her primary care provider that they combine benzodiazepines and alcohol daily. She has been falling a lot. Not eating very much solid food for days or weeks. The last 2 days she has not drank or eaten anything but he cannot say why. She has a lot of stomach aches, and he always wonders if she has cancer. Her right foot and leg was swollen yesterday and he worries about blood clots. Her back hurts all the time. She has been sitting so much in the last few days that she has an ulcer on her buttock. He also says that she just walk strangely ever since she had the pneumonia. Her left leg will be straight and pointing forward, but her right leg is cocked to the side and she has to swing it around. He does not describe alcohol withdrawal seizures or delirium but she will get agitated without her alcohol. Prior Level of Functionality: He says that she is able to dress herself, feed herself. He does everything with regards to paying the bills, driving, and will help her sometimes get dressed when she is too intoxicated. He now monitors her medicines. He is the one that buys alcohol and gives her her pills. She does not use a cane or a walker. Exam - Vital Signs Reviewed Vital Signs: Yes Vital Signs: Vital Signs x48h Temp Pulse Resp BP Pulse Ox 10/02/20 16:24 96 22 95/67 100 10/02/20 15:55 35.5 C L 97 23 101/63 100 10/02/20 15:37 96 18 99/59 L 100 10/02/20 15:12 98 18 99/55 L 100 10/02/20 14:50 98 24 98/57 L 100 10/02/20 14:35 98 18 95/48 L 100 10/02/20 14:22 96 19 92/51 L 100 10/02/20 14:08 36.1 C L 101 H 14 91/47 L 92 - Physical Exam General Appearance: positive: Lethargic, Other (She wakes to my voice, is at the bedside, but her voice is gibberish and nonsense. She will try and follow my commands but gets easily confused after 1 command only.) Eyes Bilateral: positive: EOMI, No scleral icterus, Other (Pupils are irregular in shape due to their cataract surgery. They are reactive to light and accommodation.) ENT: positive: Dry mucous membranes Neck: positive: No JVD. negative: Stiff neck Respiratory: positive: No respiratory distress, Other (Slow shallow respiration with diminished breath sounds at the bases). negative: Wheezes, Rales, Rhonchi Cardiovascular: positive: Regular rate & rhythm, Systolic murmur. negative: Gallop/S4, Friction rub Abdomen: positive: Other (Diffusely distended, firm, normal bowel sounds, and grimaces with pain more over the left upper quadrant but is tender over all her abdomen.Pereyra is draining tea colored urine) Skin: positive: Warm, Dry, Pallor, Decubitus (Right buttock, and right heel) Extremities: positive: Full ROM, Pedal edema (Right calf is swollen and about 25 to 30% larger than the left calf. No pinkness, no redness, Homans negative.He says that he will eat she likes to hang that over the side of the bed at night to the point that in the morning he has to get up and get to her side of the bed and lift her leg for her.) Neurologic/Psychiatric: positive: CN's nml (2-12), Disoriented to person, Disoriented to place, Disoriented to time, Weakness (Nonfocal, generalized, no tremors yet), Slurred/abnml speech Conclusion/Plan - Problem List (1) Metabolic encephalopathy Conclusion/Plan: She presents with a sudden worsening of mental status which is superimposed on chronic cognitive deficit/encephalopathy and an alcoholic. She combined alcohol and benzodiazepines and doxepin yesterday to a large amount. Vital signs showed her to be slightly hypoxic and hypotensive. She has a previous history of misuse of benzodiazepines. In looking for other causes of encephalopathy besides Benzodiazepines/alcohol, I reviewed possibility of infection. she is a mildly abnormal urine. It is a straight cath specimen. The belly is distended. CT of the abdomen indicates a diffuse colitis. However white cell count is not elevated and the patient has no fever. Other causes of metabolic encephalopathy such as hepatic encephalopathy and a drinker were reviewed by Dr. Gaston. That is why she did ammonia level and that was negative. She also has a new elevation of BUN and creatinine indicating acute on chronic kidney failure. There seems to be an element of dehydration. Urine tox screen positive for opiates, tricyclics, benzodiazepines. Plan: Admit to observation status Start Zosyn single agent for possibility of colitis that is nonspecific If it is overuse of benzodiazepine, she should start waking up IV fluids for hydration I spoke to the at length. I carefully described alcohol abuse and its effect on the liver and how it reduces the ability to metabolize drugs. She has been getting a benzodiazepine , 2 in the morning, with 5 doxepin at night. Yesterday she got 3 benzodiazepines in the morning, 2 benzodiazepine at night and 5 doxepin. He seems to think that because she has 26 tablets left over from her 90 tablets that she is not misusing her medicine. I finally just told him that she has been accidentally overdosed. To please follow the prescription bottle instructions which is 1 tablet 3 times a day. Or not give it at all since she is an alcoholic and uses benzodiazepines. Try and find her help for her alcohol abuse. Try and find him help so that he does not enable her. (2) Abnormal CT of the abdomen Conclusion/Plan: Diffuse throughout the colonic anatomy. No elevated temperature. No white cell count. Exam shows a distended belly but not peritoneal. Plan: As stated above, Zosyn single agent and continue to observe (3) ARVIND (acute kidney injury) Conclusion/Plan: Due to dehydration and lack of p.o. intake. There is no obstruction on CT. Plan: Avoid nephrotoxic agents IV fluids Monitor daily (4) Macrocytic anemia Conclusion/Plan: New for her. Check anemia panel for the morning. (5) Elevated LFTs Conclusion/Plan: In the context of a patient who drinks a liter of vodka a day, she may have alcoholic hepatitis, or just chronic alcoholic liver disease. Liver is described as normal in size without changes of cirrhosis on CT. No portal hypertension. Plan: For completeness sake check hepatitis panel in the morning (6) Alcohol abuse Conclusion/Plan: Banana bag for IV fluids Watch for withdrawal and use CIWA if decompensates. (7) History of pneumonia Conclusion/Plan: This was at [facility] and accompanied by a prolonged hospitalization and severe illness. Her describes pleural effusions. I have called [facility] to get old records. (8) Decubital ulcer Conclusion/Plan: Buttock and heel. He says that she has been spending more more time sitting down or laying down. Plan: Nurses plan on doing pictures, and starting Mepilex Qualifiers: Pressure injury location: buttock Pressure injury stage: stage 2 Laterality: right Qualified Code(s): L89.312 - Pressure ulcer of right buttock, stage 2 (9) Leg edema, right Conclusion/Plan: check venous dopplers (10) Right hip pain Conclusion/Plan: with circumducted gait for 2 yers getting worse. check hip and pelvis film - Lab Results Lab results reviewed: Yes Fish Bones: 10/02/20 14:59 10/02/20 14:59 - Diagnostic Imaging Results Diagnostic Imaging Results: positive: Final report reviewed Core Measures - Anticipated LOS I expect patient to be DC'd or transferred within 96 hours.: Yes - DVT/VTE - Prophylaxis VTE/DVT Device ordered at admit?: Yes
[2020-10-02] MEDS ORDERED: LACTATED RINGERS 1,000 ML IV SCH (17:00)
[2020-10-02] MEDS: SODIUM CHLORIDE FLUSH 0.9% 10 ML SYRINGE IVP SCH (17:51)
[2020-10-02 17:53] LABS: C. PNEUMONIAE- RESP PCR PANEL NOT DETECTED
[2020-10-02 18:38] LABS: ABSOLUTE RETICS # AUTO 0.075 10^6/uL (0.020-0.110); RED BLOOD COUNT 3.03 10^6/uL (4.20-5.40)
[2020-10-02] MEDS ORDERED: PIPERACILLIN/TAZOBACTAM 3.375 GM in SODIUM CHLORIDE 0.9% MINIBAG 100 ML IV SCH (19:00)
[2020-10-02 19:13] LABS: FERRITIN 163.2 ng/mL (11.0-306.8)
[2020-10-02 19:27] LABS: IRON < 6 ug/dL (28-170); TOTAL IRON BINDING CAPACITY 157 ug/dL (250-450); TRANSFERRIN 112 mg/dL (192-382)
--- NOTE | 2020-10-02 20:24 | XRAY Report ---
PROCEDURE: Hip w/Pelvis 1V RT INDICATIONS: R hip pain and external rotation TECHNIQUE: AP pelvis with lateral view(s) of the bilateral hip(s). COMPARISON: None. FINDINGS: Bones: The right hip is not well evaluated due to rotation of the study. Both hips have degenerative changes with joint space narrowing and subchondral cystic changes. The lumbar spine has degenerative changes.. The sacroiliac joints and symphysis pubis appear intact. Soft tissues: The visualized bowel gas pattern is normal. No suspicious soft tissue calcifications. IMPRESSION: 1. Degenerative changes of both hips. 2. The right hip is not well evaluated due to rotation of the study. No hip fracture was noted on the x-ray earlier today however. Reviewed by: Arnoldo Valdez on 10/02/2020 8:22 PM [facility] Approved by: Arnoldo Valdez on 10/02/2020 8:22 PM [facility] Station ID: [id number]
[2020-10-02] MEDS: PIPERACILLIN/TAZOBACTAM 3.375 GM in SODIUM CHLORIDE 0.9% MINIBAG 100 ML IV SCH (22:12)
[2020-10-03] MEDS: SODIUM CHLORIDE FLUSH 0.9% 10 ML SYRINGE IVP SCH ×3 (00:05→16:44)
[2020-10-03 01:17] LABS: CALCIUM 6.9 mg/dL (8.5-10.3)
[2020-10-03 05:17] LABS: BASOPHILS # (AUTO) 0.1 10^3/uL (0.0-0.1); BASOPHILS % (AUTO) 1.1 %; EOSINOPHILS # (AUTO) 0.1 10^3/uL (0.0-0.7); EOSINOPHILS % (AUTO) 0.8 %; HGB - HEMOGLOBIN 10.1 g/dL (12.0-16.0); LYMPHOCYTES # (AUTO) 0.9 10^3/uL (1.5-3.5); MEAN CORPUSCULAR HEMOGLOBIN 33.2 pg (27.0-31.0); MEAN CORPUSCULAR HGB CONC 31.7 g/dL (32.0-36.0); MEAN CORPUSCULAR VOLUME 104.9 fL (81.0-99.0); MEAN PLATELET VOLUME 10.7 fL (7.9-10.8); MONOCYTES # (AUTO) 0.5 10^3/uL (0.0-1.0); MONOCYTES % (AUTO) 6.9 %; NEUTROPHILS # (AUTO) 5.9 10^3/uL (1.5-6.6); NEUTROPHILS % (AUTO) 78.7 %; PLT - PLATELET COUNT 148 10^3/uL (130-450); RED BLOOD COUNT 3.04 10^6/uL (4.20-5.40); RED CELL DISTRIBUTION WIDTH 14.2 % (12.0-15.0); WHITE BLOOD COUNT 7.5 x10^3/uL (4.8-10.8)
[2020-10-03 05:32] LABS: ALBUMIN 1.9 g/dL (3.2-5.5); ALBUMIN/GLOBULIN RATIO 0.8 (1.0-2.2); CALCIUM 6.7 mg/dL (8.5-10.3); CREATININE 1.5 mg/dL (0.4-1.0); TOTAL PROTEIN 4.4 g/dL (6.7-8.2)
[2020-10-03 05:42] LABS: PLATELET ESTIMATE, MANUAL NORMAL (130-450,000) (NORMAL); PLATELET MORPHOLOGY NORMAL APPEARANCE (NORMAL)
--- NOTE | 2020-10-03 07:11 | PROVIDER PROGRESS NOTE ---
Assessment/Plan - Problem List (1) Metabolic encephalopathy Assessment/Plan: Thought to be likely due to benzo misuse. We will continue to hold patient's benzodiazepine. Patient is able to respond and follows some commands though her speech is still slurred and she appears drowsy. We will continue to monitor. Also cannot rule out long-term effects of significant alcohol abuse Patient receiving a banana bag. We will continue Thiamine and multivitamin (2) ARVIND (acute kidney injury) Assessment/Plan: Likely prerenal. Creatinine improved from 2.0-1.5 with IV hydration. Anticipate further improvement. Fluids changed from normal saline to D5 half-normal due to hypoglycemia. (3) Alcohol abuse Assessment/Plan: Protocol ordered. (4) Elevated LFTs Assessment/Plan: Alcohol abuse. We will continue to monitor. (5) Colitis Assessment/Plan: Patient is on Zosyn. Will continue. (6) Macrocytic anemia Assessment/Plan: Likely due to alcohol abuse. Hemoglobin is currently stable at 10.1 Patient's Vitamin B12 level was 794. Will check folate and correct accordingly (7) Physical deconditioning Assessment/Plan: Patient is unable to lift her lower extremities against gravity. Is reported by her that she has been unable to stand or walk for the past 5 days. PT/OT asked to evaluate patient and give recommendations. Suspect patient might benefit from custodial facility for period of time before going back home. - Current Meds Current Meds: Current Medications Generic Name Dose Route Start Last Admin Trade Name Freq PRN Reason Stop Dose Admin Piperacillin Sod/Tazobactam 100 mls @ 25 mls/hr 10/02/20 22:00 10/03/20 02:12 Sod 3.375 gm/ Sodium Chloride IV Infused Q12H NARDA Infusion Sodium Chloride 10 ml 10/02/20 17:00 10/03/20 00:05 Sodium Chloride Flush 0.9% 10 Ml Syringe IVP 10 ml 0100,0900,1700 NARDA Administration - Lab Result Fish Bone Diagrams: 10/03/20 05:10 10/03/20 05:10 Subjective - Subjective Patient Reports: Other (Patient is drowsy. Her speech is somewhat slurred. She is also very hard of hearing. Her at bedside helps with the history. She reports improvement in her speech from when she presented. Patient appears weak. Is unable to lift her legs against gravity.) Objective Vital Signs: Vital Signs - 24 hr 10/02/20 10/02/20 10/02/20 14:08 14:22 14:35 Temperature 36.1 C L Heart Rate 101 H 96 98 Heart Rate [ Brachial] Respiratory 14 19 18 Rate Blood Pressure 91/47 L 92/51 L 95/48 L Blood Pressure [Right Brachial artery] O2 Saturation 92 100 100 10/02/20 10/02/20 10/02/20 14:50 15:12 15:37 Temperature Heart Rate 98 98 96 Heart Rate [ Brachial] Respiratory 24 18 18 Rate Blood Pressure 98/57 L 99/55 L 99/59 L Blood Pressure [Right Brachial artery] O2 Saturation 100 100 100 10/02/20 10/02/20 10/02/20 15:55 16:24 17:00 Temperature 35.5 C L Heart Rate 97 96 99 Heart Rate [ Brachial] Respiratory 23 22 18 Rate Blood Pressure 101/63 95/67 100/59 L Blood Pressure [Right Brachial artery] O2 Saturation 100 100 99 10/02/20 10/02/20 10/03/20 17:53 20:22 00:00 Temperature 36.3 C L 36.4 C L 36.3 C L Heart Rate Heart Rate [ 98 100 96 Brachial] Respiratory 18 16 16 Rate Blood Pressure Blood Pressure 90/52 L 110/63 109/59 L [Right Brachial artery] O2 Saturation 100 100 95 10/03/20 05:00 Temperature 36.4 C L Heart Rate Heart Rate [ 97 Brachial] Respiratory 18 Rate Blood Pressure Blood Pressure 107/57 L [Right Brachial artery] O2 Saturation 99 Oxygen O2 Source Nasal cannula I&O (Last 24 Hrs): Intake and Output Totals x24h 10/01/20 10/02/20 10/03/20 23:59 23:59 23:59 Intake Total 1903 100 Output Total 650 300 Balance 1253 -200 General: Other (Awake but not oriented to place, time or reason. Drowsy, slurred speech, hard of hearing) HEENT: PERRLA, EOMI Neck: Supple, No JVD Neuro: Alert, Non Focal, Speech Slurred Cardiovascular: Regular rate, Normal S1, Normal S2 Respiratory: Chest non-tender, No respiratory distress, Breath sounds nml Abdomen: Normal bowel sounds, Soft Extremities: No clubbing, No cyanosis, No edema Skin: No rashes - Results Results: Laboratory Results WBC 7.5 x10^3/uL (4.8-10.8) 10/03/20 05:10 RBC 3.04 10^6/uL (4.20-5.40) L 10/03/20 05:10 Hgb 10.1 g/dL (12.0-16.0) L 10/03/20 05:10 Hct 31.9 % (37.0-47.0) L 10/03/20 05:10 MCV 104.9 fL (81.0-99.0) H 10/03/20 05:10 MCH 33.2 pg (27.0-31.0) H 10/03/20 05:10 MCHC 31.7 g/dL (32.0-36.0) L 10/03/20 05:10 RDW 14.2 % (12.0-15.0) 10/03/20 05:10 Plt Count 148 10^3/uL (130-450) 10/03/20 05:10 MPV 10.7 fL (7.9-10.8) 10/03/20 05:10 Reticulocyte % (Auto) 2.48 % (0.5-2.3) H 10/02/20 14:59 Neut # (Auto) 5.9 10^3/uL (1.5-6.6) 10/03/20 05:10 Lymph # (Auto) 0.9 10^3/uL (1.5-3.5) L 10/03/20 05:10 [place] # (Auto) 0.5 10^3/uL (0.0-1.0) 10/03/20 05:10 Eos # (Auto) 0.1 10^3/uL (0.0-0.7) 10/03/20 05:10 Baso # (Auto) 0.1 10^3/uL (0.0-0.1) 10/03/20 05:10 Absolute Nucleated RBC 0.00 x10^3/uL 10/03/20 05:10 Band Neuts % (Manual) Not Reportable 10/02/20 14:59 Abnorm Lymph % (Manual) Not Reportable 10/02/20 14:59 Nucleated RBC % 0.0 /100WBC 10/03/20 05:10 Neutrophils # (Manual) Not Reportable 10/02/20 14:59 Lymphocytes # (Manual) Not Reportable 10/02/20 14:59 Monocytes # (Manual) Not Reportable 10/02/20 14:59 Eosinophils # (Manual) Not Reportable 10/02/20 14:59 Basophils # (Manual) Not Reportable 10/02/20 14:59 Differential Comment MANUAL=AUTO DIFF 10/02/20 14:59 Manual Slide Review Indicated 10/03/20 05:10 WBC Morphology NORMAL APPEARANCE (NORMAL) 10/03/20 05:10 Platelet Estimate NORMAL (130-450,000) (NORMAL) 10/03/20 05:10 Platelet Morphology NORMAL APPEARANCE (NORMAL) 10/03/20 05:10 RBC Morph Micro Appear 1+ ANISOCYTOSIS (NORMAL) 1+ HYPOCHROMASIA (NORMAL) 10/03/20 05:10 RBC Morph Micro Appear 1+ ANISOCYTOSIS (NORMAL) 1+ HYPOCHROMASIA (NORMAL) 10/03/20 05:10 Absolute Retic 0.075 10^6/uL (0.020-0.110) 10/02/20 14:59 Sodium 139 mmol/L (135-145) 10/03/20 05:10 Potassium 3.2 mmol/L (3.5-5.0) L 10/03/20 05:10 Chloride 109 mmol/L (101-111) 10/03/20 05:10 Carbon Dioxide 19 mmol/L (21-32) L 10/03/20 05:10 Anion Gap 11.0 (6-13) 10/03/20 05:10 BUN 57 mg/dL (6-20) H 10/03/20 05:10 Creatinine 1.5 mg/dL (0.4-1.0) H 10/03/20 05:10 Estimated GFR (MDRD) 34 (>89) L 10/03/20 05:10 Glucose 61 mg/dL (70-100) L 10/03/20 05:10 Lactic Acid 0.9 mmol/L (0.5-2.2) 10/02/20 14:59 Calcium 6.7 mg/dL (8.5-10.3) L 10/03/20 05:10 Iron < 6 ug/dL (28-170) L 10/02/20 14:59 TIBC 157 ug/dL (250-450) L 10/02/20 14:59 Transferrin 112 mg/dL (192-382) L 10/02/20 14:59 Ferritin 163.2 ng/mL (11.0-306.8) 10/02/20 14:59 Total Bilirubin 1.0 mg/dL (0.2-1.0) 10/03/20 05:10 AST 64 IU/L (10-42) H 10/03/20 05:10 ALT 33 IU/L (10-60) 10/03/20 05:10 Alkaline Phosphatase 107 IU/L (42-121) 10/03/20 05:10 Ammonia < 10.0 umol/L (7-35) 10/02/20 14:59 Lactate Dehydrogenase 231 IU/L (91-225) H 10/02/20 14:59 Total Protein 4.4 g/dL (6.7-8.2) L 10/03/20 05:10 Albumin 1.9 g/dL (3.2-5.5) L 10/03/20 05:10 Globulin 2.5 g/dL (2.1-4.2) 10/03/20 05:10 Albumin/Globulin Ratio 0.8 (1.0-2.2) L 10/03/20 05:10 Lipase 19 U/L (22-51) L 10/02/20 14:59 Vitamin B12 794 pg/mL (180-914) 10/02/20 14:59 Urine Color YELLOW 10/02/20 15:15 Urine Clarity CLEAR (CLEAR) 10/02/20 15:15 Urine pH 5.5 PH (5.0-7.5) 10/02/20 15:15 Ur Specific [place] 1.025 (1.002-1.030) 10/02/20 15:15 Urine Protein TRACE mg/dL (NEGATIVE) 10/02/20 15:15 Urine Glucose (UA) NEGATIVE mg/dL (NEGATIVE) 10/02/20 15:15 Urine Ketones NEGATIVE mg/dL (NEGATIVE) 10/02/20 15:15 Urine Occult Blood MODERATE (NEGATIVE) H 10/02/20 15:15 Urine Nitrite NEGATIVE (NEGATIVE) 10/02/20 15:15 Urine Bilirubin NEGATIVE (NEGATIVE) 10/02/20 15:15 Urine Urobilinogen 0.2 (NORMAL) E.U./dL (NORMAL) 10/02/20 15:15 Ur Leukocyte Esterase TRACE (NEGATIVE) H 10/02/20 15:15 Urine RBC 6-10 /HPF (0-5) H 10/02/20 15:15 Urine WBC 4-5 /HPF (0-5) 10/02/20 15:15 Ur Squamous Epith Cells RARE Squamous (<= Few) 10/02/20 15:15 Urine Bacteria Many /HPF (None Seen) H 10/02/20 15:15 Urine Culture Comments INDICATED 10/02/20 15:15 Nasal Adenovirus (PCR) NOT DETECTED 10/02/20 16:47 Nasal B. parapertussis DNA (PCR) NOT DETECTED 10/02/20 16:47 Nasal Coronavir 229E PCR NOT DETECTED 10/02/20 16:47 Nasal Coronavir HKU1 PCR NOT DETECTED 10/02/20 16:47 Nasal Coronavir NL63 PCR NOT DETECTED 10/02/20 16:47 Nasal Coronavir OC43 PCR NOT DETECTED 10/02/20 16:47 Nasal Enterovir/Rhinovir PCR NOT DETECTED 10/02/20 16:47 Nasal Influenza B PCR NOT DETECTED 10/02/20 16:47 Nasal Influenza A PCR NOT DETECTED 10/02/20 16:47 Nasal Parainfluen 1 PCR NOT DETECTED 10/02/20 16:47 Nasal Parainfluen 2 PCR NOT DETECTED 10/02/20 16:47 Nasal Parainfluen 3 PCR NOT DETECTED 10/02/20 16:47 Nasal Parainfluen 4 PCR NOT DETECTED 10/02/20 16:47 Nasal RSV (PCR) NOT DETECTED 10/02/20 16:47 Nasal B.pertussis DNA PCR NOT DETECTED 10/02/20 16:47 Nasal C.pneumoniae (PCR) NOT DETECTED 10/02/20 16:47 [place] Human Metapneumo PCR NOT DETECTED 10/02/20 16:47 Nasal M.pneumoniae (PCR) NOT DETECTED 10/02/20 16:47 Nasal SARS-CoV-2 (PCR) NOT DETECTED 10/02/20 16:47 Urine Opiates Screen POSITIVE (NEGATIVE) H 10/02/20 15:15 Ur Oxycodone Screen NEGATIVE (NEGATIVE) 10/02/20 15:15 Urine Methadone Screen NEGATIVE (NEGATIVE) 10/02/20 15:15 Ur Propoxyphene Screen NEGATIVE (NEGATIVE) 10/02/20 15:15 Ur Barbiturates Screen NEGATIVE (NEGATIVE) 10/02/20 15:15 Ur Tricyclics Screen POSITIVE (NEGATIVE) H 10/02/20 15:15 Ur Phencyclidine Scrn NEGATIVE (NEGATIVE) 10/02/20 15:15 Ur Amphetamine Screen NEGATIVE (NEGATIVE) 10/02/20 15:15 U Methamphetamines Scrn NEGATIVE (NEGATIVE) 10/02/20 15:15 U Benzodiazepines Scrn POSITIVE (NEGATIVE) H 10/02/20 15:15 Urine Cocaine Screen NEGATIVE (NEGATIVE) 10/02/20 15:15 U Cannabinoids Screen NEGATIVE (NEGATIVE) 10/02/20 15:15 ABX Reporting Has patient been on IV antibiotics over the past 48 hours?: Yes
--- NOTE | 2020-10-03 07:30 | Ultrasound Report ---
PROCEDURE: Duplex Ext Veins Right INDICATIONS: right calf edea TECHNIQUE: Real-time imaging, as well as color and pulse Doppler interrogation, were performed of the lower extr emity deep veins from the inguinal ligament to the popliteal fossa. COMPARISON: None. FINDINGS: The deep veins are normally compressible, and free of intraluminal thrombus. Color and pu lse Doppler demonstrate normal phasic intraluminal flow. There is normal augmentation response to di stal compression maneuver. Prominent right groin lymph nodes are noted which do not meet pathologic size criteria. Nonspecific, right calf soft tissue edema. IMPRESSION: No evidence of deep vein thrombosis involving the right lower extremity. Reviewed by: Sonia Morin MD, PhD on 10/03/2020 7:29 AM PST Approved by: Sonia Morin MD, PhD on 10/03/2020 7:29 AM PST Station ID: [id number]
[2020-10-03] MEDS ORDERED: POTASSIUM CHLORIDE 20 MEQ TABLET PO ONE (07:38)
[2020-10-03] MEDS ORDERED: THIAMINE INJ 100 MG, FOLIC ACID INJ 1 MG in SODIUM CHLORIDE 0.9% 1,000 ML IV SCH (09:00)
[2020-10-03] MEDS ORDERED: SODIUM CHLORIDE 0.9% 1,000 ML IV SCH (09:00)
[2020-10-03] MEDS: ENOXAPARIN 30 MG/0.3 ML SYRINGE SUBQ SCH (09:33)
[2020-10-03] MEDS: PIPERACILLIN/TAZOBACTAM 3.375 GM in SODIUM CHLORIDE 0.9% MINIBAG 100 ML IV SCH ×2 (10:44→22:13)
--- NOTE | 2020-10-03 14:22 | PHARMACY PROGRESS NOTE ---
- Best Possible Medication History Admit Date and Time: 10/03/20 1109 Processed by: Pharmacy Medication History completed: Yes Patient Interview: Pt unable to participate Secondary Source(s): Pharmacy records, Insurance records Medication reviewed by myself on 10/03, medication in chart matched insurance fill from August. Updated doses. As the person ultimately responsible for medication therapy, providers are able to order a medication from an existing home medication list in [facility] via the "Reconcile Routine" prior to Confirmation of that medication by applications support lead. Such practice is discouraged except when the physician, in their clinical judgment, deems that a medical need exists for a medication without regard to previous use.
[2020-10-03] MEDS: DEXTROSE 5%-0.45% NACL 1,000 ML IV SCH (19:41)
[2020-10-03] MEDS ORDERED: CALCIUM CARBONATE CHEW 500 MG TABLET PO PRN (20:51)
[2020-10-03] MEDS: FAMOTIDINE 20 MG TABLET PO SCH (22:13)
[2020-10-04] MEDS: SODIUM CHLORIDE FLUSH 0.9% 10 ML SYRINGE IVP SCH ×3 (00:13→21:37)
[2020-10-04 04:39] LABS: CALCIUM 6.6 mg/dL (8.5-10.3); CREATININE 0.8 mg/dL (0.4-1.0)
[2020-10-04 04:46] LABS: BASOPHILS # (AUTO) 0.1 10^3/uL (0.0-0.1); BASOPHILS % (AUTO) 0.8 %; EOSINOPHILS % (AUTO) 0.4 %; HGB - HEMOGLOBIN 10.5 g/dL (12.0-16.0); LYMPHOCYTES # (AUTO) 0.9 10^3/uL (1.5-3.5); MEAN CORPUSCULAR HEMOGLOBIN 33.4 pg (27.0-31.0); MEAN CORPUSCULAR VOLUME 104.5 fL (81.0-99.0); MEAN PLATELET VOLUME 10.5 fL (7.9-10.8); MONOCYTES # (AUTO) 0.6 10^3/uL (0.0-1.0); MONOCYTES % (AUTO) 7.3 %; NEUTROPHILS # (AUTO) 6.3 10^3/uL (1.5-6.6); NEUTROPHILS % (AUTO) 79.1 %; PLT - PLATELET COUNT 196 10^3/uL (130-450); RED BLOOD COUNT 3.14 10^6/uL (4.20-5.40); RED CELL DISTRIBUTION WIDTH 14.5 % (12.0-15.0)
[2020-10-04] MEDS: DEXTROSE 5%-0.45% NACL 1,000 ML IV SCH (05:08)
[2020-10-04] MEDS ORDERED: ZINC OXIDE 20% OINT 30 GM TUBE TOP PRN (07:13)
[2020-10-04] MEDS ORDERED: MIN OIL/DIMETHICON/COCONUT OIL 92 GM TUBE TOP PRN (07:13)
[2020-10-04] MEDS ORDERED: POTASSIUM CHLORIDE 20 MEQ TABLET PO ONE (07:25)
--- NOTE | 2020-10-04 07:31 | PROVIDER PROGRESS NOTE ---
Assessment/Plan - Problem List (1) Metabolic encephalopathy Assessment/Plan: Improving. According to the patient's she is almost to her baseline. We will continue to monitor. Continue to hold benzodiazepine. (2) ARVIND (acute kidney injury) Assessment/Plan: Resolved. Patient's creatinine is 0.8 with an estimated GFR of 69. (3) Alcohol abuse Assessment/Plan: CIWA protocol ordered (4) Elevated LFTs Assessment/Plan: Alcohol abuse. We will continue to monitor. (5) Colitis Assessment/Plan: Zosyn discontinued. (7) Physical deconditioning Assessment/Plan: Case management to assist with disposition/placement Recommendation currently is for SNF. Cognitive eval by OT pending. (8) UTI (urinary tract infection) Assessment/Plan: Patient's Urine cultures from time of admission grew Klebsiella which is sensitive to cephalosporins. Zosyn switched to ceftriaxone. - Current Meds Current Meds: Current Medications Generic Name Dose Route Start Last Admin Trade Name Freq PRN Reason Stop Dose Admin Enoxaparin Sodium 30 mg 10/03/20 09:00 10/03/20 09:33 Enoxaparin 30 Mg/0.3 Ml Syringe SUBQ 30 mg DAILY NARDA Administration Famotidine 20 mg 10/03/20 21:00 10/03/20 22:13 Famotidine 20 Mg Tablet PO 20 mg BID NARDA Administration Piperacillin Sod/Tazobactam 100 mls @ 25 mls/hr 10/02/20 22:00 10/04/20 02:59 Sod 3.375 gm/ Sodium Chloride IV Infused Q12H NARDA Infusion Sodium Chloride 10 ml 10/02/20 17:00 10/04/20 00:13 Sodium Chloride Flush 0.9% 10 Ml Syringe IVP Not Given 0100,0900,1700 NARDA - Lab Result Fish Bone Diagrams: 10/05/20 04:31 10/05/20 04:31 - Additional Planning My Orders: My Active Orders 10/03/20 12:10 Initiate Hypoglycemia Protocol [RC] .protocol 10/03/20 12:14 CIWA - AR Score Card [RC] Q4HR 10/03/20 13:00 Evaluate and Treat OT [OT] Routine Evaluate and Treat PT [PT] Routine 10/03/20 Dinner Soft Mechanical Diet [DIET] 10/03/20 17:21 Accucheck [Blood Glucose POC] [RC] 0800,1200,1700,2100 10/04/20 07:13 Min Oil/Dimeth/Coconut Oil Crm [Cavilon] 1 applic TOP PRN PRN Zinc Oxide 20% Oint [Zinc Oxide] 1 applic TOP PRN PRN 10/04/20 08:00 D5.45ns W/20 Meq KCl 1,000 ml IV 83.333 mls/hr 10/04/20 09:00 Vitamin [Trinatal Rx 1] 1 tab PO DAILY Thiamine [Vitamin B-1] 100 mg PO DAILY Subjective - Subjective Patient Reports: Other (Patient more awake and alert today. She denied any significant complaints. She is insistent on going home.) Objective Vital Signs: Vital Signs - 24 hr 10/03/20 10/03/20 10/03/20 08:00 12:00 16:32 Temperature 36.3 C L 36.6 C 37.0 C Heart Rate [ 95 100 98 Brachial] Respiratory 16 18 20 Rate Blood Pressure 117/51 L 113/56 L 120/57 L [Right Brachial artery] O2 Saturation 98 96 95 10/03/20 10/04/20 10/04/20 20:04 00:33 05:06 Temperature 36.6 C 37.1 C 36.5 C Heart Rate [ 100 98 97 Brachial] Respiratory 16 18 18 Rate Blood Pressure 147/72 H 108/51 L 132/65 H [Right Brachial artery] O2 Saturation 100 94 95 Oxygen O2 Source Room air I&O (Last 24 Hrs): Intake and Output Totals x24h 10/02/20 10/03/20 10/04/20 23:59 23:59 23:59 Intake Total 1903 2981.2 1045 Output Total 650 1000 200 Balance 1253 1981.2 845 General: Alert, Oriented x3, No acute distress HEENT: Atraumatic, PERRLA, EOMI Neck: Supple, No JVD Neuro: Alert, Oriented Times 3 Cardiovascular: Regular rate, Normal S1, Normal S2 Respiratory: Chest non-tender, No respiratory distress, Breath sounds nml Abdomen: Normal bowel sounds, Soft Extremities: No edema, Other (Lower extremity weakness) Skin: No rashes - Results Results: Laboratory Results WBC 8.0 x10^3/uL (4.8-10.8) 10/04/20 04:07 RBC 3.14 10^6/uL (4.20-5.40) L 10/04/20 04:07 Hgb 10.5 g/dL (12.0-16.0) L 10/04/20 04:07 Hct 32.8 % (37.0-47.0) L 10/04/20 04:07 MCV 104.5 fL (81.0-99.0) H 10/04/20 04:07 MCH 33.4 pg (27.0-31.0) H 10/04/20 04:07 MCHC 32.0 g/dL (32.0-36.0) 10/04/20 04:07 RDW 14.5 % (12.0-15.0) 10/04/20 04:07 Plt Count 196 10^3/uL (130-450) 10/04/20 04:07 MPV 10.5 fL (7.9-10.8) 10/04/20 04:07 Reticulocyte % (Auto) 2.48 % (0.5-2.3) H 10/02/20 14:59 Neut # (Auto) 6.3 10^3/uL (1.5-6.6) 10/04/20 04:07 Lymph # (Auto) 0.9 10^3/uL (1.5-3.5) L 10/04/20 04:07 [place] # (Auto) 0.6 10^3/uL (0.0-1.0) 10/04/20 04:07 Eos # (Auto) 0.0 10^3/uL (0.0-0.7) 10/04/20 04:07 Baso # (Auto) 0.1 10^3/uL (0.0-0.1) 10/04/20 04:07 Absolute Nucleated RBC 0.00 x10^3/uL 10/04/20 04:07 Band Neuts % (Manual) Not Reportable 10/02/20 14:59 Abnorm Lymph % (Manual) Not Reportable 10/02/20 14:59 Nucleated RBC % 0.0 /100WBC 10/04/20 04:07 Neutrophils # (Manual) Not Reportable 10/02/20 14:59 Lymphocytes # (Manual) Not Reportable 10/02/20 14:59 Monocytes # (Manual) Not Reportable 10/02/20 14:59 Eosinophils # (Manual) Not Reportable 10/02/20 14:59 Basophils # (Manual) Not Reportable 10/02/20 14:59 Differential Comment MANUAL=AUTO DIFF 10/02/20 14:59 Manual Slide Review Indicated 10/03/20 05:10 WBC Morphology NORMAL APPEARANCE (NORMAL) 10/03/20 05:10 Platelet Estimate NORMAL (130-450,000) (NORMAL) 10/03/20 05:10 Platelet Morphology NORMAL APPEARANCE (NORMAL) 10/03/20 05:10 RBC Morph Micro Appear 1+ ANISOCYTOSIS (NORMAL) 1+ HYPOCHROMASIA (NORMAL) 10/03/20 05:10 RBC Morph Micro Appear 1+ ANISOCYTOSIS (NORMAL) 1+ HYPOCHROMASIA (NORMAL) 10/03/20 05:10 Absolute Retic 0.075 10^6/uL (0.020-0.110) 10/02/20 14:59 Sodium 139 mmol/L (135-145) 10/04/20 04:07 Potassium 3.0 mmol/L (3.5-5.0) L 10/04/20 04:07 Chloride 110 mmol/L (101-111) 10/04/20 04:07 Carbon Dioxide 20 mmol/L (21-32) L 10/04/20 04:07 Anion Gap 9.0 (6-13) 10/04/20 04:07 BUN 34 mg/dL (6-20) H 10/04/20 04:07 Creatinine 0.8 mg/dL (0.4-1.0) 10/04/20 04:07 Estimated GFR (MDRD) 69 (>89) L 10/04/20 04:07 Glucose 151 mg/dL (70-100) H 10/04/20 04:07 POC Whole Bld Glucose 91 mg/dL (70 - 100) 10/03/20 21:16 Lactic Acid 0.9 mmol/L (0.5-2.2) 10/02/20 14:59 Calcium 6.6 mg/dL (8.5-10.3) L 10/04/20 04:07 Magnesium 2.0 mg/dL (1.7-2.8) 10/03/20 05:10 Iron < 6 ug/dL (28-170) L 10/02/20 14:59 TIBC 157 ug/dL (250-450) L 10/02/20 14:59 Transferrin 112 mg/dL (192-382) L 10/02/20 14:59 Ferritin 163.2 ng/mL (11.0-306.8) 10/02/20 14:59 Total Bilirubin 1.0 mg/dL (0.2-1.0) 10/03/20 05:10 AST 64 IU/L (10-42) H 10/03/20 05:10 ALT 33 IU/L (10-60) 10/03/20 05:10 Alkaline Phosphatase 107 IU/L (42-121) 10/03/20 05:10 Ammonia < 10.0 umol/L (7-35) 10/02/20 14:59 Lactate Dehydrogenase 231 IU/L (91-225) H 10/02/20 14:59 Total Protein 4.4 g/dL (6.7-8.2) L 10/03/20 05:10 Albumin 1.9 g/dL (3.2-5.5) L 10/03/20 05:10 Globulin 2.5 g/dL (2.1-4.2) 10/03/20 05:10 Albumin/Globulin Ratio 0.8 (1.0-2.2) L 10/03/20 05:10 Lipase 19 U/L (22-51) L 10/02/20 14:59 Vitamin B12 794 pg/mL (180-914) 10/02/20 14:59 Folate 13.64 ng/mL (5.90 - >24.8) 10/04/20 04:07 Urine Color YELLOW 10/02/20 15:15 Urine Clarity CLEAR (CLEAR) 10/02/20 15:15 Urine pH 5.5 PH (5.0-7.5) 10/02/20 15:15 Ur Specific [place] 1.025 (1.002-1.030) 10/02/20 15:15 Urine Protein TRACE mg/dL (NEGATIVE) 10/02/20 15:15 Urine Glucose (UA) NEGATIVE mg/dL (NEGATIVE) 10/02/20 15:15 Urine Ketones NEGATIVE mg/dL (NEGATIVE) 10/02/20 15:15 Urine Occult Blood MODERATE (NEGATIVE) H 10/02/20 15:15 Urine Nitrite NEGATIVE (NEGATIVE) 10/02/20 15:15 Urine Bilirubin NEGATIVE (NEGATIVE) 10/02/20 15:15 Urine Urobilinogen 0.2 (NORMAL) E.U./dL (NORMAL) 10/02/20 15:15 Ur Leukocyte Esterase TRACE (NEGATIVE) H 10/02/20 15:15 Urine RBC 6-10 /HPF (0-5) H 10/02/20 15:15 Urine WBC 4-5 /HPF (0-5) 10/02/20 15:15 Ur Squamous Epith Cells RARE Squamous (<= Few) 10/02/20 15:15 Urine Bacteria Many /HPF (None Seen) H 10/02/20 15:15 Urine Culture Comments INDICATED 10/02/20 15:15 Nasal Adenovirus (PCR) NOT DETECTED 10/02/20 16:47 Nasal B. parapertussis DNA (PCR) NOT DETECTED 10/02/20 16:47 Nasal Coronavir 229E PCR NOT DETECTED 10/02/20 16:47 Nasal Coronavir HKU1 PCR NOT DETECTED 10/02/20 16:47 Nasal Coronavir NL63 PCR NOT DETECTED 10/02/20 16:47 Nasal Coronavir OC43 PCR NOT DETECTED 10/02/20 16:47 Nasal Enterovir/Rhinovir PCR NOT DETECTED 10/02/20 16:47 Nasal Influenza B PCR NOT DETECTED 10/02/20 16:47 Nasal Influenza A PCR NOT DETECTED 10/02/20 16:47 Nasal Parainfluen 1 PCR NOT DETECTED 10/02/20 16:47 Nasal Parainfluen 2 PCR NOT DETECTED 10/02/20 16:47 Nasal Parainfluen 3 PCR NOT DETECTED 10/02/20 16:47 Nasal Parainfluen 4 PCR NOT DETECTED 10/02/20 16:47 Nasal RSV (PCR) NOT DETECTED 10/02/20 16:47 Nasal B.pertussis DNA PCR NOT DETECTED 10/02/20 16:47 Nasal C.pneumoniae (PCR) NOT DETECTED 10/02/20 16:47 [place] Human Metapneumo PCR NOT DETECTED 10/02/20 16:47 Nasal M.pneumoniae (PCR) NOT DETECTED 10/02/20 16:47 Nasal SARS-CoV-2 (PCR) NOT DETECTED 10/02/20 16:47 Urine Opiates Screen POSITIVE (NEGATIVE) H 10/02/20 15:15 Ur Oxycodone Screen NEGATIVE (NEGATIVE) 10/02/20 15:15 Urine Methadone Screen NEGATIVE (NEGATIVE) 10/02/20 15:15 Ur Propoxyphene Screen NEGATIVE (NEGATIVE) 10/02/20 15:15 Ur Barbiturates Screen NEGATIVE (NEGATIVE) 10/02/20 15:15 Ur Tricyclics Screen POSITIVE (NEGATIVE) H 10/02/20 15:15 Ur Phencyclidine Scrn NEGATIVE (NEGATIVE) 10/02/20 15:15 Ur Amphetamine Screen NEGATIVE (NEGATIVE) 10/02/20 15:15 U Methamphetamines Scrn NEGATIVE (NEGATIVE) 10/02/20 15:15 U Benzodiazepines Scrn POSITIVE (NEGATIVE) H 10/02/20 15:15 Urine Cocaine Screen NEGATIVE (NEGATIVE) 10/02/20 15:15 U Cannabinoids Screen NEGATIVE (NEGATIVE) 10/02/20 15:15 ABX Reporting Has patient been on IV antibiotics over the past 48 hours?: Yes
[2020-10-04] MEDS: D5.45NS W/20 MEQ KCL 1,000 ML IV SCH ×2 (08:01→19:23)
[2020-10-04] MEDS: FAMOTIDINE 20 MG TABLET PO SCH ×2 (08:06→21:37)
[2020-10-04] MEDS: FOLIC ACID 1 MG TABLET PO SCH (08:06)
[2020-10-04] MEDS: PRENATAL VITAMIN TABLET PO SCH (08:06)
[2020-10-04] MEDS: ENOXAPARIN 30 MG/0.3 ML SYRINGE SUBQ SCH (08:06)
[2020-10-04] MEDS: THIAMINE 100 MG TABLET PO SCH (08:06)
[2020-10-04] MEDS: cefTRIAXone 1 GM in SODIUM CHLORIDE 0.9% MINIBAG 100 ML IV SCH (10:45)
[2020-10-05] MEDS: SODIUM CHLORIDE FLUSH 0.9% 10 ML SYRINGE IVP SCH ×2 (00:02→08:49)
[2020-10-05 04:46] LABS: BASOPHILS % (AUTO) 0.5 %; EOSINOPHILS # (AUTO) 0.1 10^3/uL (0.0-0.7); EOSINOPHILS % (AUTO) 0.9 %; HGB - HEMOGLOBIN 10.9 g/dL (12.0-16.0); LYMPHOCYTES # (AUTO) 1.9 10^3/uL (1.5-3.5); LYMPHOCYTES % (AUTO) 24.4 %; MEAN CORPUSCULAR HEMOGLOBIN 33.4 pg (27.0-31.0); MEAN CORPUSCULAR HGB CONC 32.3 g/dL (32.0-36.0); MEAN CORPUSCULAR VOLUME 103.4 fL (81.0-99.0); MEAN PLATELET VOLUME 10.1 fL (7.9-10.8); MONOCYTES # (AUTO) 0.7 10^3/uL (0.0-1.0); MONOCYTES % (AUTO) 9.2 %; NEUTROPHILS # (AUTO) 4.9 10^3/uL (1.5-6.6); NEUTROPHILS % (AUTO) 63.2 %; PLT - PLATELET COUNT 214 10^3/uL (130-450); RED BLOOD COUNT 3.26 10^6/uL (4.20-5.40); RED CELL DISTRIBUTION WIDTH 14.3 % (12.0-15.0); WHITE BLOOD COUNT 7.8 x10^3/uL (4.8-10.8)
[2020-10-05 04:53] LABS: CALCIUM 6.9 mg/dL (8.5-10.3); CREATININE 0.5 mg/dL (0.4-1.0)
[2020-10-05] MEDS: D5.45NS W/20 MEQ KCL 1,000 ML IV SCH (06:59)
[2020-10-05] MEDS: PRENATAL VITAMIN TABLET PO SCH (08:48)
[2020-10-05] MEDS: FAMOTIDINE 20 MG TABLET PO SCH (08:48)
[2020-10-05] MEDS: cefTRIAXone 1 GM in SODIUM CHLORIDE 0.9% MINIBAG 100 ML IV SCH (08:48)
[2020-10-05] MEDS: THIAMINE 100 MG TABLET PO SCH (08:48)
[2020-10-05] MEDS: FOLIC ACID 1 MG TABLET PO SCH (08:48)
[2020-10-05] MEDS ORDERED: ENOXAPARIN 40 MG/0.4 ML SYRINGE SUBQ SCH (09:00)
--- NOTE | 2020-10-05 09:14 | DISCHARGE SUMMARY ---
Discharge Summary Admit Date: 10/02/20 Discharge Date: 10/05/20 Discharging Provider: Manuel Morin Primary Care Provider: Irina Carter Code Status: Do Not Attempt Resuscitation Condition at Discharge: Fair Discharge Disposition: 06 Home Health Service - DIAGNOSES Admission Diagnoses: Metabolic encephalopathy Abnormal CT of the abdomen Acute kidney injury Macrocytic anemia Elevated LFTs Alcohol abuse History of pneumonia Decubitus ulcerRight leg edema Right hip pain Discharge Diagnoses with Status of Each Condition: Metabolic encephalopathy: Resolved Abnormal CT of the abdomen: Resolved Acute kidney injury: Resolved Macrocytic anemia: Chronic secondary to alcohol abuse Elevated LFTs: Stable Alcohol abuse: Chronic History of pneumonia Decubitus ulcerRight leg edemaStable/improved Right hip pain Physical deconditioning: Ongoing. Declined rehab UTI: Resolved - HPI History of Present Illness: Per HPI: She has a history of anxiety, hypertension, hyperlipidemia and hypothyroidism. She was admitted in March 2016 for tremors. She has severe anxiety and she takes Xanax 3 times a day. She had run out of Xanax with that admission and was possibly going through withdrawal. She was then seen in the emergency room May 2020. She had fallen and hurt her hand, and in that evaluation she had taken 3 Xanax in the morning, and forgotten that she taken those 3 Xanax and too k another 3. There is a strong suspicion that the fall and the Xanax were linked. She was sent home from there. Her states that he gives her 2 Xanax in the morning all at once. And that seems to carry her during the day. The prescription bottle says 1 Xanax 3 times a day but he just finds it more useful to give it to her first thing in the morning. She gets 5 doxepin tablets at night. Her was able to speak to me on the phone. He states that she has baseline cognitive deficits. He would call her with dementia. While she always knows who he is, and where she is in their house, she is not so well oriented when she leaves the house. She drinks a liter of vodka a day and has done so for quite some time. She pretty much drinks all day long and this contributes to falling. Even if she wakes up in the middle the night, she will have another drink and go back to sleep. 2 years ago she was seen at [facility] for pneumonia and had a gisela course "I thought we were going to lose her". Ever since then she really loses her balance easily and her vodka drinking cont ributes to those falls. She does not fall every day but she falls frequently. On September 25 and she was having difficulty because of back pain. He wanted her to have a shower so he gave her some of his Vicodin to help her with the pain. 3 days ago she fell while he was standing next to her. Her legs just gave out from underneath her. She really did not hit anything. He got her up and she did fine. Later that day she was sitting on the edge of the bed and somehow laid backwards and missed the bed and landed on the floor. Yesterday he noticed that she had a bruise over her eyebrow and he did not know where she got that from. She stopped eating and drinking 2 days ago. He cannot say why. He says that her abdomen seemed distended, tender, and she seemed uncomfortable, irritable, and full of gas. Yesterday, in desperation to try and get her to sleep, he gave her Xanax, 0.5 mg tablets, 3 in the morning. Then later in the evening he gave her 2 xanax and 5 doxepin tablets. She went to bed at 5:30 with those pills. At 11 PM or 11:30 she got up to pee. He changed her underwear, pajamas, got her back in bed. She slept all night long and this morning she just could not get out of bed anymore. So he brought her to the hospital. So he called EMS and they brought her to the emergency room and she was seen by Dr. Gaston. EMS gave her 1400 cc in their ambulance ride. Temperature was 36.1, heart rate 101, respirations 14 and blood pressure was 91/47. 92% saturated. Dr. Gaston gave her the rest of the liter that was hanging, and then another liter and a half in the emergency room. Her blood pressure has remained in the 90s systolic. She has moist mucous membranes. No meningeal signs. No respiratory distress. She has a distended abdomen with moderate diffuse tenderness throughout the entire abdomen. She did really is not following commands. Will arouse to loud voice and answer to her name but responses are incomprehensible. She has slurred and unclear speech. No facial droop. She has a newly elevated BUN. At 70. Baseline is 13 and 14. Creatinine is also elevated to 2.6. It is usually 0.6. LFTs are elevated. AST 75, ALT 35, alk phos 124. Ammonia is less than 10. Lactic acid 0.9. White cell count is normal at 9.2, she is anemic at 9.9 with usual hemoglobin 12.9. MCV is 104. Head CT has unremarkable intracranial study. No acute intracranial abnormalities. And abdomen pelvis CT has a catheter in place. She has small infiltrate atelectasis in the posterior aspect of the right lung base. There is a suggestion of a ascending, transverse, and descending colon wall thickness seen with pericolonic fat stranding predominantly involving the distal transverse colon and descending colon suggestive of infectious inflammatory colitis. Diverticulosis is seen without diverticulitis. She is now admitted observation status for metabolic encephalopathy and colitis - HOSPITAL COURSE Hospital Course: Patient's benzodiazepines (Xanax and doxepin) were held upon admission. Her mentation improved steadily over the course of 3-day stay. She was back to her baseline by discharge. She received IV hydration for Acute kidney injury. Her creatinine improved from 2.0 down to 0.5. The acute kidney injury was likely due to dehydration. Patient's urine culture grew Klebsiella pneumonia. She was initially on Zosyn. This was switched to ceftriaxone. She was discharged on Keflex 500 twice daily x4 days. She was seen by physical therapy and recommendation was to go to [facility] for [facility]. However the patient was insistent on not going to rehab and demanded to go home. Consequently the patient was discharged home with home health. The patient refuses to eat and as a result did not have any is significant oral intake during her hospital stay. The rest of her hospital stay was unremarkable. - ALLERGIES Allergies/Adverse Reactions: Allergies Allergy/AdvReac Type Severity Reaction Status Date / Time No Known Drug Allergies Allergy Verified 08/03/18 16:59 - MEDICATIONS Home Medications: Ambulatory Orders Medication Instructions Recorded Confirmed Doxepin HCl 250 mg ORAL QPM 04/07/16 10/03/20 lisinopriL [Lisinopril] 5 mg PO DAILY 08/03/18 10/03/20 ALPRAZolam [Alprazolam] 0.5 mg PO TID PRN 10/02/20 10/03/20 Levothyroxine [Synthroid] 100 mcg PO .FRIDAY-Friday10/02/20 10/03/20 cephALEXin [Keflex] 500 mg PO BID 4 Days #8 10/05/20 - PHYSICAL EXAM AT DISCHARGE General Appearance: positive: No acute distress, Alert Eyes Bilateral: positive: PERRL, EOMI ENT: positive: No signs of dehydration Neck: positive: No JVD, Trachea midline Respiratory: positive: Chest non-tender, No respiratory distress, Breath sounds nml Cardiovascular: positive: Regular rate & rhythm, No murmur Abdomen: positive: Non-tender, No organomegaly, Nml bowel sounds, No distention Extremities: positive: Non-tender, Pedal edema (Trace) Neurologic/Psychiatric: positive: Oriented x3, Motor nml, Sensation nml, Mood/affect nml - LABS Result Diagrams: 10/05/20 04:31 10/05/20 04:31 - FOLLOW UP Follow Up: Primary care physician within 7 to 10 days - TIME SPENT Time Spent in Discharge (Minutes): 25
--- NOTE | 2020-10-05 09:16 | Discharge Plan ---
Discharge Plan Problem Reviewed?: Yes Disposition: 06 Home Health Service Condition: Fair Prescriptions: cephALEXin [Keflex] 500 mg PO BID 4 Days #8 Diet: Regular Activity Restrictions: Using walker & per PT Assistance Devices: Walker Health Concerns: You were admitted on 10/02/2020 with altered mental status which was thought to be due to being oversedated with Xanax and doxepin. This medications were held during your stay and your mentation steadily improved over the course of 3 days. By the time of discharge you back to your baseline. The urine sample that was obtained was suggestive of a Urinary tract infection so you were started on antibiotics. Your urine cultures eventually grew a bacteria called Klebsiella pneumonia which was sensitive to a lot of antibiotics. You will be discharged home with Keflex 500 mg to take 1 tablet every 12 hours for 4 days. This would have completed a week of antibiotics. Also had acute kidney injury with a creatinine of 2.0 at presentation. This was likely because due to volume depleted/dehydrated. With IV hydration creatinine improved to 0.5. We will encourage you to continue staying adequately hydrated at home. You have been very weak during your hospital stay. You had a hard time being able to lift up your legs from the bed against gravity only. You were evaluated by physical therapy and recommendations were to go to senior care facility for rehab. You have been very insistent on not going to rehab. You have also been insistent on going home specifically This leaves us with sending you home with home health To date your has been assisting at home. Is agreeable to continue assisting you around the house until home health is set up to see you at home. By the time of discharge today it would have been 5 days since you have been without alcohol. You have been advised to continue abstaining from alcohol. Your understands this and expresses that there would be no more alcohol provided in the house. I recommend follow-up with your primary care physician within 7 to 10 days. Plan of Treatment: You were admitted on 10/02/2020 with altered mental status which was thought to be due to being oversedated with Xanax and doxepin. This medications were held during your stay and your mentation steadily improved over the course of 3 days. By the time of discharge you back to your baseline. The urine sample that was obtained was suggestive of a Urinary tract infection so you were started on antibiotics. Your urine cultures eventually grew a bacteria called Klebsiella pneumonia which was sensitive to a lot of antibiotics. You will be discharged home with Keflex 500 mg to take 1 tablet every 12 hours for 4 days. This would have completed a week of antibiotics. Also had acute kidney injury with a creatinine of 2.0 at presentation. This was likely because due to volume depleted/dehydrated. With IV hydration creatinine improved to 0.5. We will encourage you to continue staying adequately hydrated at home. You have been very weak during your hospital stay. You had a hard time being able to lift up your legs from the bed against gravity only. You were evaluated by physical therapy and recommendations were to go to senior care facility for rehab. You have been very insistent on not going to rehab. You have also been insistent on going home specifically This leaves us with sending you home with home health To date your has been assisting at home. Is agreeable to continue assisting you around the house until home health is set up to see you at home. By the time of discharge today it would have been 5 days since you have been without alcohol. You have been advised to continue abstaining from alcohol. Your understands this and expresses that there would be no more alcohol provided in the house. I recommend follow-up with your primary care physician within 7 to 10 days. Care Goals: You were admitted on 10/02/2020 with altered mental status which was thought to be due to being oversedated with Xanax and doxepin. This medications were held during your stay and your mentation steadily improved over the course of 3 days. By the time of discharge you back to your baseline. The urine sample that was obtained was suggestive of a Urinary tract infection so you were started on antibiotics. Your urine cultures eventually grew a bacteria called Klebsiella pneumonia which was sensitive to a lot of antibiotics. You will be discharged home with Keflex 500 mg to take 1 tablet every 12 hours for 4 days. This would have completed a week of antibiotics. Also had acute kidney injury with a creatinine of 2.0 at presentation. This was likely because due to volume depleted/dehydrated. With IV hydration creatinine improved to 0.5. We will encourage you to continue staying adequately hydrated at home. You have been very weak during your hospital stay. You had a hard time being able to lift up your legs from the bed against gravity only. You were evaluated by physical therapy and recommendations were to go to senior care facility for rehab. You have been very insistent on not going to rehab. You have also been insistent on going home specifically This leaves us with sending you home with home health To date your has been assisting at home. Is agreeable to continue assist ing you around the house until home health is set up to see you at home. By the time of discharge today it would have been 5 days since you have been without alcohol. You have been advised to continue abstaining from alcohol. Your understands this and expresses that there would be no more alcohol provided in the house. I recommend follow-up with your primary care physician within 7 to 10 days. Assessment: You were admitted on 10/02/2020 with altered mental status which was thought to be due to being oversedated with Xanax and doxepin. This medications were held during your stay and your mentation steadily improved over the course of 3 days. By the time of discharge you back to your baseline. The urine sample that was obtained was suggestive of a Urinary tract infection so you were started on antibiotics. Your urine cultures eventually grew a bacteria called Klebsiella pneumonia which was sensitive to a lot of antibiotics. You will be discharged home with Keflex 500 mg to take 1 tablet every 12 hours for 4 days. This would have completed a week of antibiotics. Also had acute kidney injury with a creatinine of 2.0 at presentation. This was likely because due to volume depleted/dehydrated. With IV hydration creatinine improved to 0.5. We will encourage you to continue staying adequately hydrated at home. You have been very weak during your hospital stay. You had a hard time being able to lift up your legs from the bed against gravity only. You were evaluated by physical therapy and recommendations were to go to senior care facility for rehab. You have been very insistent on not going to rehab. You have also been insistent on going home specifically This leaves us with sending you home with home health To date your has been assisting at home. Is agreeable to continue assisting you around the house until home health is set up to see you at home. By the time of discharge today it would have been 5 days since you have been without alcohol. You have been advised to continue abstaining from alcohol. Your understands this and expresses that there would be no more alcohol provided in the house. I recommend follow-up with your primary care physician within 7 to 10 days. No Smoking: If you smoke, Please STOP! Call for help.
[2020-10-05 13:01] VITALS: BP 142/72
== END 2020-10-05 14:00 | disposition home health service (06) | DRG 917 ==
LOC: EDUNIT# → ED 14:09 → MS2 16:42 → OBSVTOIN 10-03 11:09
PROVIDERS: ADMIT Specialist; ATTEND Internal Medicine
DX: T42.4X1A Poisoning by benzodiazepines, accidental (unintentional), initial encounter (principal); G92 Toxic encephalopathy; N17.9 Acute kidney failure, unspecified; N39.0 Urinary tract infection, site not specified; F10.10 Alcohol abuse, uncomplicated; R79.89 Other specified abnormal findings of blood chemistry; B96.1 Klebsiella pneumoniae [K. pneumoniae] as the cause of diseases classified elsewhere; A09 Infectious gastroenteritis and colitis, unspecified; T51.0X1A Toxic effect of ethanol, accidental (unintentional), initial encounter; Y92.009 Unspecified place in unspecified non-institutional (private) residence as the place of occurrence of the external cause; E86.0 Dehydration; L89.312 Pressure ulcer of right buttock, stage 2; L89.619 Pressure ulcer of right heel, unspecified stage; R26.9 Unspecified abnormalities of gait and mobility; I12.9 Hypertensive chronic kidney disease with stage 1 through stage 4 chronic kidney disease, or unspecified chronic kidney disease; N18.9 Chronic kidney disease, unspecified; F41.9 Anxiety disorder, unspecified; F32.9 Major depressive disorder, single episode, unspecified; R41.89 Other symptoms and signs involving cognitive functions and awareness; D63.8 Anemia in other chronic diseases classified elsewhere; E78.5 Hyperlipidemia, unspecified; R60.0 Localized edema; E03.9 Hypothyroidism, unspecified; J43.9 Emphysema, unspecified; G89.29 Other chronic pain; M54.9 Dorsalgia, unspecified; M25.551 Pain in right hip; K57.30 Diverticulosis of large intestine without perforation or abscess without bleeding; Z20.822 Contact with and (suspected) exposure to COVID-19; R53.81 Other malaise; H91.90 Unspecified hearing loss, unspecified ear; Z91.81 History of falling; Z66 Do not resuscitate; Z79.899 Other long term (current) drug therapy; Z87.01 Personal history of pneumonia (recurrent); Z87.891 Personal history of nicotine dependence; D53.9 Nutritional anemia, unspecified
CPT/HCPCS: 36415; 51702; 70450; 71045; 73501; 74176; 80048; 80053; 81001; 82140; 82607; 82728; 82746; 83540; 83605; 83615; 83690; 83735; 84466; 85025; 85045; 87040; 87077; 87086; 87181; 87631; 93971; 96361; 96365; 96366; 96367; 96368; 96372; 97116; 97162; 97166; 97530; 97535; 99285; A6250; A9270; G0378; J1650; J3411; J7120; 0202U; 80306

== ENCOUNTER 2020-10-19 14:31 | Outpatient (CLI) | payer MEDICARE, OTHER | END 2020-10-19 14:32 | disposition critical access hospital (66) | LOC: EMS 14:31 | PROVIDERS: ATTEND Emergency Medicine | DX: R41.82 Altered mental status, unspecified (principal); R47.89 Other speech disturbances | CPT/HCPCS: A0425; A0429 ==

== ENCOUNTER 2020-10-19 15:07 | Inpatient (IN) | payer MEDICARE, OTHER ==
[2020-10-19] MEDS ORDERED: THIAMINE 100 MG TABLET PO STA (15:22)
[2020-10-19] MEDS ORDERED: FOLIC ACID INJ 1 MG, THIAMINE INJ 100 MG, MAGNESIUM SULFATE 2 GM, MULTIVITAMIN 10 ML in... IV STA ×5 (15:38)
[2020-10-19] MEDS ORDERED: FOLIC ACID INJ 1 MG, THIAMINE INJ 100 MG, MAGNESIUM SULFATE 2 GM in SODIUM CHLORIDE 0.9... IV STA (16:14)
[2020-10-19 16:37] LABS: BASOPHILS % (AUTO) 0.8 %; EOSINOPHILS % (AUTO) 0.2 %; HCT - HEMATOCRIT 31.8 % (37.0-47.0); HGB - HEMOGLOBIN 9.9 g/dL (12.0-16.0); LYMPHOCYTES # (AUTO) 1.3 10^3/uL (1.5-3.5); LYMPHOCYTES % (AUTO) 25.9 %; MEAN CORPUSCULAR HEMOGLOBIN 31.6 pg (27.0-31.0); MEAN CORPUSCULAR HGB CONC 31.1 g/dL (32.0-36.0); MEAN CORPUSCULAR VOLUME 101.6 fL (81.0-99.0); MEAN PLATELET VOLUME 9.4 fL (7.9-10.8); MONOCYTES # (AUTO) 0.5 10^3/uL (0.0-1.0); MONOCYTES % (AUTO) 9.4 %; NEUTROPHILS # (AUTO) 3.1 10^3/uL (1.5-6.6); NEUTROPHILS % (AUTO) 62.9 %; PLT - PLATELET COUNT 283 10^3/uL (130-450); RED BLOOD COUNT 3.13 10^6/uL (4.20-5.40); RED CELL DISTRIBUTION WIDTH 14.5 % (12.0-15.0); WHITE BLOOD COUNT 4.9 x10^3/uL (4.8-10.8)
[2020-10-19 16:44] LABS: BILIRUBIN,URINE NEGATIVE (NEGATIVE); GLUCOSE, URINE (UA) NEGATIVE (NEGATIVE); KETONES,URINE (UA) >=80 mg/dL (NEGATIVE); LEUKOCYTE ESTERASE, URINE NEGATIVE (NEGATIVE); NITRITE,URINE NEGATIVE (NEGATIVE); OCCULT BLOOD,URINE NEGATIVE (NEGATIVE); PROTEIN,URINE NEGATIVE (NEGATIVE); UROBILINOGEN,URINE 0.2 (NORMAL) E.U./dL (NORMAL)
[2020-10-19 16:46] LABS: CLARITY,URINE CLEAR (CLEAR)
[2020-10-19 16:51] LABS: ALBUMIN 2.1 g/dL (3.2-5.5); ALBUMIN/GLOBULIN RATIO 0.9 (1.0-2.2); BILIRUBIN,TOTAL 0.8 mg/dL (0.2-1.0); CALCIUM 7.6 mg/dL (8.5-10.3); CREATININE 0.9 mg/dL (0.4-1.0); POTASSIUM 2.7 mmol/L (3.5-5.0); TOTAL PROTEIN 4.5 g/dL (6.7-8.2)
[2020-10-19] MEDS ORDERED: DEXTROSE 50% ABBOJECT 25 GM/50 ML SYRINGE IVP STA (16:53)
[2020-10-19] MEDS ORDERED: DEXTROSE 50% ABBOJECT 25 GM/50 ML SYRINGE ONE (17:01)
[2020-10-19 18:00] LABS: B. PARAPERTUSSIS- RESP PCR PAN NOT DETECTED; B. PERTUSSIS- RESP PCR PANEL NOT DETECTED; C. PNEUMONIAE- RESP PCR PANEL NOT DETECTED; CORONAVIRUS 229E-RESP PCR NOT DETECTED; CORONAVIRUS HKU1-RESP PCR NOT DETECTED; CORONAVIRUS NL63-RESP PCR NOT DETECTED; CORONAVIRUS OC43-RESP PCR NOT DETECTED; HUMAN METAPNEUMOVIRUS NOT DETECTED; INFLUENZA A- RESP PCR PANEL NOT DETECTED; INFLUENZA B - RESP PCR PANEL NOT DETECTED; M. PNEUMONIAE- RESP PCR PANEL NOT DETECTED; PARAINFLUENZA VIRUS 1 NOT DETECTED; PARAINFLUENZA VIRUS 2 NOT DETECTED; PARAINFLUENZA VIRUS 3 NOT DETECTED; PARAINFLUENZA VIRUS 4 NOT DETECTED; RHINOVIRUS/ENTEROVIRUS NOT DETECTED; RSV- RESP PCR PANEL NOT DETECTED; SARS-CoV-2 -RESP PCR PANEL NOT DETECTED
--- NOTE | 2020-10-19 18:01 | CT Report ---
PROCEDURE: HEAD WO INDICATIONS: AMSX3 days , ataxia, slurred speech, hx etoh TECHNIQUE: Noncontrast 4.5 mm thick angled axial sections acquired from the foramen magnum to the vertex. For r adiation dose reduction, the following was used: automated exposure control, adjustment of mA and/or kV according to patient size. COMPARISON: 10/02/2020, 04/07/2016 FINDINGS: Image quality: Motion artifact is noted. CSF spaces: Basal cisterns are patent. No extra-axial fluid collections. Ventricles are normal in size and shape. Brain: No midline shift. No intracranial masses or hemorrhage. Willoughby-white matter interface is norm al. Brain parenchymal volume loss is seen. Chronic small vessel ischemic changes are seen. Skull and face: Calvarium and visualized facial bones are intact, without suspicious lesions. Sinuses: Visualized sinuses and mastoids are clear. IMPRESSION: Motion limited study, without an acute abnormality identified. Postoperative and degenerative changes are seen. Note: No significant discrepancy from the preliminary report. Reviewed by: Scotty Gaitan MD on 10/19/2020 5:00 PM AKST Approved by: Scotty Gaitan MD on 10/19/2020 5:00 PM [place] Station ID: [id number]
--- NOTE | 2020-10-19 18:11 | ED Physician Documentation ---
History of Present Illness - Stated complaint Stated Complaint: SORE ON BUTTOCKS - Chief complaint Chief Complaint: Neuro - History obtained from History obtained from: Family () - Additonal information Additional information: 80yF with pmh emphysema (supposed to be on home o2 but noncompliant), chronic etoh abuse, abstinent for the past 2 weeks, admitted here Oct 02 with complications of alcohol abuse, p/w chronic worsening symptoms since discharge, acutely worsening over the past 3 days. Per , she was discharged on antibiotics for uti and developed diarrhea after finishing the course, with subsequent drop in po intake. diarrhea resolved but she never started eating again. patient is noncompliant with PT and he has had trouble caring for her at home. She also has c/o progressively worsening buttock pain, found to have a sacral ulcer which he had thought cleared up but then was c/o this again today. Of note, he says her ataxia and slurring of speech has been worsening and she has been severely confused on and off for the past 3 days. denies fevers to his knowledge or other acute neuro deficits. denies HT. 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 HEENT: Chronic hearing loss Psych: Depression, Anxiety Musculoskeletal: Chronic back pain Derm: None - Past Surgical History Past Surgical History: Yes Ortho: Other HEENT: Cataracts - Present Medications Home Medications: Ambulatory Orders Medication Instructions Recorded Confirmed Doxepin HCl 250 mg ORAL QPM 04/07/16 10/03/20 lisinopriL [Lisinopril] 5 mg PO DAILY 08/03/18 10/03/20 ALPRAZolam [Alprazolam] 0.5 mg PO TID PRN 10/02/20 10/03/20 Levothyroxine [Synthroid] 100 mcg PO .FRIDAY-Friday10/02/20 10/03/20 cephALEXin [Keflex] 500 mg PO BID 4 Days #8 10/05/20 - Allergies Allergies/Adverse Reactions: Allergies Allergy/AdvReac Type Severity Reaction Status Date / Time No Known Drug Allergies Allergy Verified 10/19/20 15:17 - Social History Does the pt smoke?: No Smoking Status: Never smoker Does the pt drink ETOH?: No Does the pt have substance abuse?: No - Immunizations Immunizations are current?: Yes - POLST Patient has POLST: Yes POLST Status: DNR PD ED PE NORMAL - Vitals Vital signs reviewed: Yes - General General: Other (obtunded, emaciated appearing with skin breakdown and large ascitic appearing abdomen) - HEENT HEENT: Atraumatic, PERRL, EOMI, Other (dry mm) - Neck Neck: Supple, no meningeal sign - Cardiac Cardiac: RRR - Respiratory Respiratory: No respiratory distress, Clear bilaterally - Abdomen Abdomen: Non tender, Non distended, Other (soft, distended abdomen. nontender to palpation) - Female Female : Deferred - Rectal Rectal: Other (brown stool) - Back Back: No CVA TTP - Derm Derm: Other (dry, ashen, poor skin turgor. sacral decubitus ulcer stage 1. unstageable L heel 1cm ulcer) - Extremities Extremities: No deformity - Neuro Neuro: Other (eye opening to verbal, moving extremities spontaneously, speaking in single words or moaning. ) - Psych Psych: Other (eye opening to verbal, moving extremities spontaneously, speaking in single words or moaning. ) Results - Vitals Vitals: Vital Signs - 24 hr 10/19/20 10/19/20 10/19/20 15:17 16:08 16:37 Temperature 36.8 C 36.8 C 37.0 C Heart Rate 97 96 95 Respiratory 19 15 17 Rate Blood Pressure 110/52 L 120/55 L O2 Saturation 98 100 100 10/19/20 10/19/20 10/19/20 17:30 18:28 18:30 Temperature Heart Rate 90 91 90 Respiratory 16 19 16 Rate Blood Pressure 113/54 L 116/55 L 128/61 O2 Saturation 99 100 99 Oxygen O2 Source Room air - Labs Labs: Microbiology 10/19/20 18:20 Occult Blood - Final Stool Laboratory Tests 10/19/20 10/19/20 10/19/20 14:35 16:23 16:23 WBC 4.9 RBC 3.13 L Hgb 9.9 L Hct 31.8 L MCV 101.6 H MCH 31.6 H MCHC 31.1 L RDW 14.5 Plt Count 283 MPV 9.4 Neut # (Auto) 3.1 Lymph # (Auto) 1.3 L Erath # (Auto) 0.5 Eos # (Auto) 0.0 Baso # (Auto) 0.0 Absolute Nucleated RBC 0.00 Nucleated RBC % 0.0 VBG pH VBG pCO2 VBG pO2 VBG HCO3 VBG Total CO2 VBG O2 Saturation VBG Base Excess Sodium 140 Potassium 2.7 L Chloride 104 Carbon Dioxide 22 Anion Gap 14.0 H BUN 10 Creatinine 0.9 Estimated GFR (MDRD) 61 L Glucose 75 Lactic Acid Calcium 7.6 L Magnesium Total Bilirubin 0.8 AST 25 ALT 16 Alkaline Phosphatase 101 Ammonia Total Protein 4.5 L Albumin 2.1 L Globulin 2.4 Albumin/Globulin Ratio 0.9 L Lipase 14 L Urine Color YELLOW Urine Clarity CLEAR Urine pH 6.0 Ur Specific Burdick 1.025 Urine Protein NEGATIVE Urine Glucose (UA) NEGATIVE Urine Ketones >=80 H Urine Occult Blood NEGATIVE Urine Nitrite NEGATIVE Urine Bilirubin NEGATIVE Urine Urobilinogen 0.2 (NORMAL) Ur Leukocyte Esterase NEGATIVE Ur Microscopic Review NOT INDICATED Urine Culture Comments NOT INDICATED Nasal Adenovirus (PCR) Nasal B. parapertussis DNA (PCR) Nasal Coronavir 229E PCR Nasal Coronavir HKU1 PCR Nasal Coronavir NL63 PCR Nasal Coronavir OC43 PCR Nasal Enterovir/Rhinovir PCR Nasal Influenza B PCR Nasal Influenza A PCR Nasal Parainfluen 1 PCR Nasal Parainfluen 2 PCR Nasal Parainfluen 3 PCR Nasal Parainfluen 4 PCR Nasal RSV (PCR) Nasal B.pertussis DNA PCR Nasal C.pneumoniae (PCR) Marcelino Human Metapneumo PCR Nasal M.pneumoniae (PCR) Nasal SARS-CoV-2 (PCR) Serum Ketones 10/19/20 10/19/20 10/19/20 16:23 16:23 16:23 WBC RBC Hgb Hct MCV MCH MCHC RDW Plt Count MPV Neut # (Auto) Lymph # (Auto) Erath # (Auto) Eos # (Auto) Baso # (Auto) Absolute Nucleated RBC Nucleated RBC % VBG pH VBG pCO2 VBG pO2 VBG HCO3 VBG Total CO2 VBG O2 Saturation VBG Base Excess Sodium Potassium Chloride Carbon Dioxide Anion Gap BUN Creatinine Estimated GFR (MDRD) Glucose Lactic Acid 1.0 Calcium Magnesium 2.0 Total Bilirubin AST ALT Alkaline Phosphatase Ammonia < 10.0 Total Protein Albumin Globulin Albumin/Globulin Ratio Lipase Urine Color Urine Clarity Urine pH Ur Specific Burdick Urine Protein Urine Glucose (UA) Urine Ketones Urine Occult Blood Urine Nitrite Urine Bilirubin Urine Urobilinogen Ur Leukocyte Esterase Ur Microscopic Review Urine Culture Comments Nasal Adenovirus (PCR) Nasal B. parapertussis DNA (PCR) Nasal Coronavir 229E PCR Nasal Coronavir HKU1 PCR Nasal Coronavir NL63 PCR Nasal Coronavir OC43 PCR Nasal Enterovir/Rhinovir PCR Nasal Influenza B PCR Nasal Influenza A PCR Nasal Parainfluen 1 PCR Nasal Parainfluen 2 PCR Nasal Parainfluen 3 PCR Nasal Parainfluen 4 PCR Nasal RSV (PCR) Nasal B.pertussis DNA PCR Nasal C.pneumoniae (PCR) Marcelino Human Metapneumo PCR Nasal M.pneumoniae (PCR) Nasal SARS-CoV-2 (PCR) Serum Ketones SMALL H 10/19/20 10/19/20 17:00 18:27 WBC RBC Hgb Hct MCV MCH MCHC RDW Plt Count MPV Neut # (Auto) Lymph # (Auto) Erath # (Auto) Eos # (Auto) Baso # (Auto) Absolute Nucleated RBC Nucleated RBC % VBG pH 7.344 VBG pCO2 41.4 VBG pO2 30.5 VBG HCO3 22.0 L VBG Total CO2 23.3 L VBG O2 Saturation 51.5 L VBG Base Excess -3.4 L Sodium Potassium Chloride Carbon Dioxide Anion Gap BUN Creatinine Estimated GFR (MDRD) Glucose Lactic Acid Calcium Magnesium Total Bilirubin AST ALT Alkaline Phosphatase Ammonia Total Protein Albumin Globulin Albumin/Globulin Ratio Lipase Urine Color Urine Clarity Urine pH Ur Specific Burdick Urine Protein Urine Glucose (UA) Urine Ketones Urine Occult Blood Urine Nitrite Urine Bilirubin Urine Urobilinogen Ur Leukocyte Esterase Ur Microscopic Review Urine Culture Comments Nasal Adenovirus (PCR) NOT DETECTED Nasal B. parapertussis DNA (PCR) NOT DETECTED Nasal Coronavir 229E PCR NOT DETECTED Nasal Coronavir HKU1 PCR NOT DETECTED Nasal Coronavir NL63 PCR NOT DETECTED Nasal Coronavir OC43 PCR NOT DETECTED Nasal Enterovir/Rhinovir PCR NOT DETECTED Nasal Influenza B PCR NOT DETECTED Nasal Influenza A PCR NOT DETECTED Nasal Parainfluen 1 PCR NOT DETECTED Nasal Parainfluen 2 PCR NOT DETECTED Nasal Parainfluen 3 PCR NOT DETECTED Nasal Parainfluen 4 PCR NOT DETECTED Nasal RSV (PCR) NOT DETECTED Nasal B.pertussis DNA PCR NOT DETECTED Nasal C.pneumoniae (PCR) NOT DETECTED Marcelino Human Metapneumo PCR NOT DETECTED Nasal M.pneumoniae (PCR) NOT DETECTED Nasal SARS-CoV-2 (PCR) NOT DETECTED Serum Ketones PD MEDICAL DECISION MAKING - ED course Complexity details: re-evaluated patient, d/w family ED course: This is a 80yF presenting with severe malnourishment, worsening sacral/heel decubiti, and altered mental status per . Initially on arrival she was obtunded and speaking in single words, eye opening to verbal, moving extremities spontaneously. Per she had taken xanax prior to arrival. On my reexamination throughout her stay she improved to the extent that now (3 hours into her stay) she is AOX3, albeit with slurring of speech, eye opening spontaneously, moving extremities spontaneously and purposefully. She is without acute neuro deficits and therefore her symptoms appear to be attributable to her medication and to severe chronic malnutrition. I d/w Dr. Slater, our hospitalist who will admit her inpatient for further management. Departure - Departure Disposition: 66 [facility] DC/Xfer Clinical Impression: Hypocalcemia, Altered mental status, Slurring of speech, Severe malnutrition, Ketonuria, Hypokalemia, Anemia, Ataxia, Sacral decubitus ulcer, Decubitus ulcer, heel, left, unstageable
[2020-10-19 18:33] LABS: VBG BASE EXCESS -3.4 mmol/L (-2 - +2); VBG OXYGEN SATURATION 51.5 % (60-80); VBG PCO2 41.4 mmHg (41-51); VBG PH 7.344 (7.31-7.41); VBG PO2 30.5 mmHg (25-47); VBG TOTAL CO2 23.3 mmol/L (24-29)
[2020-10-19 18:33] LABS: KETONES, SERUM (ACETEST) SMALL (NEGATIVE)
[2020-10-19] MEDS: POTASSIUM CHLOR 10 MEQ/100 ML 10 MEQ/100 ML BAG IV SCH ×4 (18:54→22:54)
[2020-10-19] MEDS ORDERED: MAGNESIUM SULFATE 2 GRAM 2 GM/50 ML BAG IV ONE (19:00)
[2020-10-19] MEDS ORDERED: ONDANSETRON 4 MG/2 ML VIAL IVP PRN (20:02)
--- NOTE | 2020-10-19 20:02 | HISTORY & PHYSICAL EXAMINATION ---
Chief Complaint - Chief Complaint Chief Complaint: altered mental status History of Present Illness - Admitted From Admitted From:: [facility] ED - History Obtained From Records Reviewed: yes History obtained from: patient's Exam Limitations: altered mental status - History of Present Illness HPI Comment/Other: Patient is a 80 y/o female who presented to the ED via ambulance around 2 PM today 10/19/20 with altered mental status. She was discharged from [facility] about 2 weeks ago. She had presented at that time with altered mental status thought to be due to overuse of benzodiazepine. It was reported that her speech was slurred and she seemed somewhat obtunded upon arrival to the ED today. However talking with her he reports that the patient had been given a dose of Xanax around 1 PM. He explained that the patient had been doing well since discharge. She had been ambulating more and was making an attempt to eat more. However her oral intake has steadily decreased over the past few days. She was discharged home with a prescription of cefdinir to take for about 3 more days. She was experiencing diarrhea after completion of the antibiotics. Diarrhea stopped 3 days ago. The patient's chadwick and buttock area appears very hyperemic. Work-up in the ED included a BMP which showed a potassium of 2.7. The patient has 2+ lower extremity pitting edema. Her albumin level is 2.1. Her reports that the patient has not had any alcohol since discharge 2 weeks ago. Ammonia level was within normal limits. CT of the brain without contrast was unremarkable. At bedside the patient mainly shouts out in irritation at any attempt to move her. She does not seem to understand questions asked currently. She keeps insisting on being taken to her room. She is not oriented to place time or reason at the moment. She has a 2+ ulcer on her left heel. 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 Dad of old age. 1 sister, her twin, also had alcoholism but has been sober for years and is healthy. 2 daughters suffer from anxiety and depression, other child is healthy Living Situation: With spouse/s.o. Social History Notes: Patient and her live in [facility]. They are originally from the [facility]. They moved here approximately 2005. They have been for 34 years. It is a third marriage for her. They do not have children together. She has 2 children from first marriage, and a 3rd child from her second marriage. She smoked 1 pack/day for 40 years and quit 2003. She has no history of recreational substance abuse. Alcohol abuse is 1 liter vodka a day for years now. On this admission date of 10/19/20 patient hasnot drank alcohol in 3 weeks - POLST Patient has POLST: Yes POLST Status: DNR Meds/Allgy - Home Medications Home Medications: Ambulatory Orders Medication Instructions Recorded Confirmed Doxepin HCl 250 mg ORAL QPM 04/07/16 10/03/20 lisinopriL [Lisinopril] 5 mg PO DAILY 08/03/18 10/03/20 ALPRAZolam [Alprazolam] 0.5 mg PO TID PRN 10/02/20 10/03/20 Levothyroxine [Synthroid] 100 mcg PO .FRIDAY-Friday10/02/20 10/03/20 cephALEXin [Keflex] 500 mg PO BID 4 Days #8 10/05/20 - Allergies Allergies/Adverse Reactions: Allergies Allergy/AdvReac Type Severity Reaction Status Date / Time No Known Drug Allergies Allergy Verified 10/19/20 15:17 Review of Systems - Other Findings Other Findings: Limited review of systems due to altered mental status. Prior Level of Functionality: Patient is dependent for activities of daily living. She is not very steady on her feet and requires a walker and assistance to get around. She has a stage 2 ulcer on her left heel which is likely due to significant immobility. During her last admission 3 weeks ago it was recommended that the patient go to alf facility. However she vehemently declined. Exam - Vital Signs Vital Signs: Vital Signs x48h Temp Pulse Resp BP Pulse Ox 10/19/20 19:03 91 19 128/52 L 100 10/19/20 18:30 90 16 128/61 99 10/19/20 18:28 91 19 116/55 L 100 10/19/20 17:30 90 16 113/54 L 99 10/19/20 16:37 37.0 C 95 17 100 10/19/20 16:08 36.8 C 96 15 120/55 L 100 10/19/20 15:17 36.8 C 97 19 110/52 L 98 - Physical Exam General Appearance: positive: Other (Patient is awake and alert but not oriented to time, place or reason. Patient shouts out in irritation occasionally) Eyes Bilateral: positive: PERRL, EOMI ENT: positive: Dry mucous membranes Neck: positive: Nml inspection, No JVD Respiratory: positive: Chest non-tender, No respiratory distress, Breath sounds nml. negative: Wheezes, Rales, Rhonchi Cardiovascular: positive: Regular rate & rhythm. negative: Tachycardia Abdomen: positive: Non-tender, No organomegaly, Nml bowel sounds, Other (appears bloated). negative: Guarding, Rebound Back: positive: Nml inspection Skin: positive: Color nml, Warm, Dry, Skin rash (hyperemic rash in buttock and [place] area) Extremities: positive: Pedal edema (2+ edema) Neurologic/Psychiatric: positive: Disoriented to place, Disoriented to time, Other (Uncooperative) Conclusion/Plan - Problem List (1) Hypokalemia Conclusion/Plan: While patient has history of hypokalemia, it was likely worsened by recent bout of diarrhea and patient's poor nutritional status. Will replace and recheck. Patient was also given magnesium sulfate 2 g IV in the ED. (2) Altered mental status Conclusion/Plan: Etiology undetermined Patient has mild dementia. However presentation may be due to medication She is on xanax and doxepin CT of the brain without contrast was unremarkable. Ammonia level was normal. Infectious cause is unlikely as patient is afebrile with normal WBC and normal urine analysis (4) Sacral decubitus ulcer Conclusion/Plan: Frequent turning Ointment to area of skin breakdown (5) Hypothyroidism Conclusion/Plan: Will check TSH. Resume synthroid once verified (6) Lower extremity edema Conclusion/Plan: Likely related to poor nutritional status. Nutrition consult - Lab Results Fish Bones: 10/19/20 16:23 10/19/20 16:23 Core Measures - Anticipated LOS I expect patient to be DC'd or transferred within 96 hours.: Yes - DVT/VTE - Prophylaxis VTE/DVT Device ordered at admit?: Yes VTE/DVT Prophylaxis med ordered at admit?: Yes
[2020-10-19] MEDS: NYSTATIN POWDER 15 GM TOP SCH (21:49)
[2020-10-19] MEDS ORDERED: SODIUM CHLORIDE 0.9% 500 ML IV PRN (22:04)
[2020-10-19] MEDS: D5.45NS W/20 MEQ KCL 1,000 ML IV SCH (22:59)
[2020-10-19] MEDS: SODIUM CHLORIDE FLUSH 0.9% 10 ML SYRINGE IVP SCH (23:29)
[2020-10-20] MEDS: PANTOPRAZOLE 40 MG VIAL IVP SCH (06:51)
[2020-10-20] MEDS: SODIUM CHLORIDE FLUSH 0.9% 10 ML SYRINGE IVP PRN (06:51)
[2020-10-20 08:36] LABS: EOSINOPHILS # (AUTO) 0.1 10^3/uL (0.0-0.7); EOSINOPHILS % (AUTO) 2.5 %; HCT - HEMATOCRIT 31.8 % (37.0-47.0); HGB - HEMOGLOBIN 10.1 g/dL (12.0-16.0); LYMPHOCYTES # (AUTO) 1.3 10^3/uL (1.5-3.5); LYMPHOCYTES % (AUTO) 33.2 %; MEAN CORPUSCULAR HGB CONC 31.8 g/dL (32.0-36.0); MEAN CORPUSCULAR VOLUME 100.6 fL (81.0-99.0); MEAN PLATELET VOLUME 9.3 fL (7.9-10.8); MONOCYTES # (AUTO) 0.5 10^3/uL (0.0-1.0); MONOCYTES % (AUTO) 11.6 %; NEUTROPHILS # (AUTO) 2.1 10^3/uL (1.5-6.6); PLT - PLATELET COUNT 259 10^3/uL (130-450); RED BLOOD COUNT 3.16 10^6/uL (4.20-5.40); RED CELL DISTRIBUTION WIDTH 14.5 % (12.0-15.0)
[2020-10-20 08:42] LABS: CALCIUM 7.3 mg/dL (8.5-10.3); CREATININE 0.7 mg/dL (0.4-1.0); POTASSIUM 2.8 mmol/L (3.5-5.0)
[2020-10-20] MEDS: ENOXAPARIN 40 MG/0.4 ML SYRINGE SUBQ SCH (09:00)
[2020-10-20] MEDS: POTASSIUM CHLOR 10 MEQ/100 ML 10 MEQ/100 ML BAG IV SCH ×4 (09:00→13:55)
[2020-10-20] MEDS: SODIUM CHLORIDE FLUSH 0.9% 10 ML SYRINGE IVP SCH ×2 (09:00→17:57)
[2020-10-20] MEDS: LACTOBACILLUS RHAMNOSUS GG CAPSULE PO SCH (09:00)
[2020-10-20] MEDS: NYSTATIN POWDER 15 GM TOP SCH ×2 (09:00→21:10)
[2020-10-20] MEDS ORDERED: ALBUTEROL NEB 2.5 MG/3 ML INH PRN (14:42)
[2020-10-20] MEDS: IPRATROPIUM/ALBUTEROL 3 ML NEB INH SCH ×2 (15:08→18:11)
--- NOTE | 2020-10-20 18:30 | PHARMACY PROGRESS NOTE ---
- Best Possible Medication History Admit Date and Time: 10/19/20 1835 Processed by: Pharmacy Medication History completed: Yes Secondary Source(s): Pharmacy records, Insurance records As the person ultimately responsible for medication therapy, providers are able to order a medication from an existing home medication list in [facility] via the "Reconcile Routine" prior to Confirmation of that medication by administrative support coordinator. Such practice is discouraged except when the physician, in their clinical judgment, deems that a medical need exists for a medication without regard to previous use.
[2020-10-20] MEDS: D5.45NS W/20 MEQ KCL 1,000 ML IV SCH (18:54)
--- NOTE | 2020-10-20 19:01 | PROVIDER PROGRESS NOTE ---
Assessment/Plan - Problem List (1) Hypokalemia Assessment/Plan: Patient's potassium this morning was 2.8. 40 mEq of potassium chloride IV was ordered to run over 4 hours. Patient is receiving some potassium in her IV hydration as well. 40 mEq of potassium chloride p.o. was administered tonight. We will recheck potassium level in the morning. We will also administer magnesium 2 g IV x1. (3) Malnutrition Assessment/Plan: Patient was seen by the home extension agent. Thiamine and vitamins was added. Ensure was added to patient's diet which she took and tolerated. She is on a soft mechanical diet. 300 mg p.o. of ferrous sulfate liquid was ordered for q. lunch (4) Sacral decubitus ulcer Assessment/Plan: Frequent turning Ointment to area of skin breakdown (5) Hypothyroidism Assessment/Plan: On Synthroid 100 mcg p.o. daily except on Friday. (6) Lower extremity edema Assessment/Plan: Likely related to poor nutritional status. - Current Meds Current Meds: Current Medications Generic Name Dose Route Start Last Admin Trade Name Freq PRN Reason Stop Dose Admin Albuterol/Ipratropium 3 ml 10/20/20 15:00 10/20/20 18:11 Ipratropium/Albuterol 3 Ml Neb INH 3 ml RTQID NARDA Administration Enoxaparin Sodium 40 mg 10/20/20 09:00 10/20/20 09:00 Enoxaparin 40 Mg/0.4 Ml Syringe SUBQ 40 mg DAILY NARDA Administration Potassium Chloride/Dextrose/Sod Cl 1,000 mls @ 75 mls/hr 10/19/20 23:00 10/20/20 18:54 D5.45ns W/20 Meq Kcl IV 75 mls/hr .[id number] NARDA Administration Lactobacillus Rhamnosus 1 cap 10/20/20 09:00 10/20/20 09:00 Lactobacillus Rhamnosus Gg Capsule PO 1 cap DAILY NARDA Administration Nystatin 1 applic 10/19/20 21:00 10/20/20 09:00 Nystatin Powder 15 Gm TOP 1 applic BID NARDA Administration Pantoprazole Sodium 40 mg 10/20/20 07:00 10/20/20 06:51 Pantoprazole 40 Mg Vial IVP 40 mg QDAC NARDA Administration Sodium Chloride 10 ml 10/19/20 20:02 10/20/20 06:51 Sodium Chloride Flush 0.9% 10 Ml Syringe IVP 10 ml PRN PRN Administration NEEDED PER PROVIDER ORDERS Sodium Chloride 10 ml 10/20/20 01:00 10/20/20 17:57 Sodium Chloride Flush 0.9% 10 Ml Syringe IVP Not Given 0100,0900,1700 NARDA - Lab Result Fish Bone Diagrams: 10/20/20 08:29 10/20/20 08:29 - Additional Planning My Orders: My Active Orders 10/19/20 20:02 Telemetry- [RC] Q4HR Ondansetron Inj [Zofran Inj] 4 mg IVP Q6HR PRN Sodium Chloride Flush 0.9% [Normal Saline Flush 0.9%] 10 ml IVP PRN PRN 10/19/20 20:03 Activity Orders [RC] Q2HR IO [RC] IOSHIFT Initiate Bowel Care Protocol [RC] .protocol Initiate Line Care Protocol [RC] QSHIFT Initiate Personal Care Protoco [RC] .protocol Vital Signs [RC] 0800,1600,0000 Code Status [OTHERS] Routine Condition of Patient [OTHERS] Routine DVT Prophylaxis [OTHERS] Routine 10/19/20 20:07 SCDs [RC] QSHIFT 10/19/20 21:00 Nystatin [Nystop] 1 applic TOP BID 10/19/20 22:04 Sodium Chloride 0.9% [Normal Saline 0.9%] 500 ml IV Q24H 10/19/20 23:00 D5.45ns W/20 Meq KCl 1,000 ml IV 75 mls/hr 10/20/20 Evaluate and Treat OT [OT] Routine Evaluate and Treat PT [PT] Routine 10/20/20 01:00 Sodium Chloride Flush 0.9% [Normal Saline Flush 0.9%] 10 ml IVP 0100,0900,1700 10/20/20 07:00 Pantoprazole [Protonix] 40 mg IVP QDAC 10/20/20 09:00 Enoxaparin [Lovenox] 40 mg SUBQ DAILY Lactobacillus Rhamnosus GG [Culturelle] 1 cap PO DAILY 10/21/20 05:00 BMP - BASIC METABOLIC PANEL [CHEM] DAILYLAB CBC - COMP BLD CT W/AUTO DIFF [HEME] DAILYLAB 10/22/20 05:00 BMP - BASIC METABOLIC PANEL [CHEM] DAILYLAB CBC - COMP BLD CT W/AUTO DIFF [HEME] DAILYLAB 10/23/20 05:00 BMP - BASIC METABOLIC PANEL [CHEM] DAILYLAB CBC - COMP BLD CT W/AUTO DIFF [HEME] DAILYLAB 10/24/20 05:00 BMP - BASIC METABOLIC PANEL [CHEM] DAILYLAB CBC - COMP BLD CT W/AUTO DIFF [HEME] DAILYLAB 10/25/20 05:00 BMP - BASIC METABOLIC PANEL [CHEM] DAILYLAB CBC - COMP BLD CT W/AUTO DIFF [HEME] DAILYLAB Subjective - Subjective Patient Reports: Other (Awake and alert today. She is able to respond appropriately to most questions asked. She is hard of hearing which limits conversation. Her appetite continues to be poor. She was able to ambulate to the bathroom and showered today with some assistance.) Objective Vital Signs: Vital Signs - 24 hr 10/19/20 10/19/20 10/19/20 19:03 20:00 23:27 Temperature 36.3 C L 36.5 C Heart Rate 91 Heart Rate [ Activity] Heart Rate [ 91 86 Brachial] Heart Rate [ Sitting] Respiratory 19 20 18 Rate Blood Pressure 128/52 L Blood Pressure [Activity] Blood Pressure 121/59 L 121/43 L [Right Brachial artery] Blood Pressure [Sitting] O2 Saturation 100 99 100 10/20/20 10/20/20 10/20/20 07:51 11:25 11:30 Temperature 36.4 C L Heart Rate Heart Rate [ 97 98 Activity] Heart Rate [ 89 Brachial] Heart Rate [ 93 Sitting] Respiratory 16 Rate Blood Pressure Blood Pressure 129/56 L 125/67 [Activity] Blood Pressure 114/47 L [Right Brachial artery] Blood Pressure 126/56 L 129/56 L [Sitting] O2 Saturation 99 10/20/20 10/20/20 10/20/20 13:00 14:39 15:08 Temperature 36.8 C 36.8 C Heart Rate 100 91 Heart Rate [ Activity] Heart Rate [ 95 Brachial] Heart Rate [ Sitting] Respiratory 16 18 16 Rate Blood Pressure Blood Pressure [Activity] Blood Pressure 125/67 [Right Brachial artery] Blood Pressure [Sitting] O2 Saturation 96 98 10/20/20 10/20/20 16:00 18:13 Temperature 36.3 C L Heart Rate 101 H Heart Rate [ Activity] Heart Rate [ 101 H Brachial] Heart Rate [ Sitting] Respiratory 18 18 Rate Blood Pressure Blood Pressure [Activity] Blood Pressure 114/61 [Right Brachial artery] Blood Pressure [Sitting] O2 Saturation 96 Oxygen O2 Source Nasal cannula I&O (Last 24 Hrs): Intake and Output Totals x24h 10/18/20 10/19/20 10/20/20 23:59 23:59 23:59 Intake Total 1906.786 3271.867 Output Total 0 Balance 6611.927 3334.867 General: Alert, Oriented x3, No acute distress HEENT: PERRLA, EOMI Neck: Supple, No JVD Neuro: Alert, Non Focal, Oriented Times 3 Cardiovascular: Regular rate, Normal S1, Normal S2 Respiratory: Chest non-tender, No respiratory distress, Breath sounds nml Abdomen: Normal bowel sounds, Soft, No tenderness, No masses Extremities: No clubbing, No cyanosis, Other (2+ lower extremity edema) Comments/Notes: Redness in per and buttock are with skin breakdown - Results Results: Laboratory Results WBC 4.0 x10^3/uL (4.8-10.8) L 10/20/20 08:29 RBC 3.16 10^6/uL (4.20-5.40) L 10/20/20 08:29 Hgb 10.1 g/dL (12.0-16.0) L 10/20/20 08:29 Hct 31.8 % (37.0-47.0) L 10/20/20 08:29 MCV 100.6 fL (81.0-99.0) H 10/20/20 08:29 MCH 32.0 pg (27.0-31.0) H 10/20/20 08:29 MCHC 31.8 g/dL (32.0-36.0) L 10/20/20 08:29 RDW 14.5 % (12.0-15.0) 10/20/20 08:29 Plt Count 259 10^3/uL (130-450) 10/20/20 08:29 MPV 9.3 fL (7.9-10.8) 10/20/20 08:29 Neut # (Auto) 2.1 10^3/uL (1.5-6.6) 10/20/20 08:29 Lymph # (Auto) 1.3 10^3/uL (1.5-3.5) L 10/20/20 08:29 [place] # (Auto) 0.5 10^3/uL (0.0-1.0) 10/20/20 08: Eos # (Auto) 0.1 10^3/uL (0.0-0.7) 10/20/20 08: Baso # (Auto) 0.0 10^3/uL (0.0-0.1) 10/20/20 08: Absolute Nucleated RBC 0.00 x10^3/uL 10/20/20 08: Nucleated RBC % 0.0 /100WBC 10/20/20 08:29 VBG pH 7.344 (7.31-7.41) 10/19/20 18: VBG pCO2 41.4 mmHg (41-51) 10/19/20 18: VBG pO2 30.5 mmHg (25-47) 10/19/20 18: VBG HCO3 22.0 mmol/L (23-28) L 10/19/20 18: VBG Total CO2 23.3 mmol/L (24-29) L 10/19/20 18:27 VBG O2 Saturation 51.5 % (60-80) L 10/19/20 18:27 VBG Base Excess -3.4 mmol/L (-2 - +2) L 10/19/20 18: Sodium 144 mmol/L (135-145) 10/20/20 08: Potassium 2.8 mmol/L (3.5-5.0) L 10/20/20 08: Chloride 109 mmol/L (101-111) 10/20/20 08: Carbon Dioxide 25 mmol/L (21-32) 10/20/20 08:29 Anion Gap 10.0 (6-13) 10/20/20 08:29 BUN 8 mg/dL (6-20) 10/20/20 08:29 Creatinine 0.7 mg/dL (0.4-1.0) 10/20/20 08:29 Estimated GFR (MDRD) 81 (>89) L 10/20/20 08:29 Glucose 97 mg/dL (70-100) 10/20/20 08: Lactic Acid 1.0 mmol/L (0.5-2.2) 10/19/20 16:23 Calcium 7.3 mg/dL (8.5-10.3) L 10/20/20 08:29 Magnesium 2.0 mg/dL (1.7-2.8) 10/19/20 16:23 Total Bilirubin 0.8 mg/dL (0.2-1.0) 10/19/20 16:23 AST 25 IU/L (10-42) 10/19/20 16:23 ALT 16 IU/L (10-60) 10/19/20 16:23 Alkaline Phosphatase 101 IU/L (42-121) 10/19/20 16:23 Ammonia < 10.0 umol/L (7-35) 10/19/20 16:23 Total Protein 4.5 g/dL (6.7-8.2) L 10/19/20 16:23 Albumin 2.1 g/dL (3.2-5.5) L 10/19/20 16:23 Globulin 2.4 g/dL (2.1-4.2) 10/19/20 16:23 Albumin/Globulin Ratio 0.9 (1.0-2.2) L 10/19/20 16:23 Lipase 14 U/L (22-51) L 10/19/20 16:23 TSH 0.14 uIU/mL (0.34-5.60) L 10/20/20 05:12 Free T4 1.30 ng/dL (0.58-1.64) 10/20/20 07:56 Urine Color YELLOW 10/19/20 14:35 Urine Clarity CLEAR (CLEAR) 10/19/20 14:35 Urine pH 6.0 PH (5.0-7.5) 10/19/20 14:35 Ur Specific [place] 1.025 (1.002-1.030) 10/19/20 14:35 Urine Protein NEGATIVE mg/dL (NEGATIVE) 10/19/20 14:35 Urine Glucose (UA) NEGATIVE mg/dL (NEGATIVE) 10/19/20 14:35 Urine Ketones >=80 mg/dL (NEGATIVE) H 10/19/20 14:35 Urine Occult Blood NEGATIVE (NEGATIVE) 10/19/20 14:35 Urine Nitrite NEGATIVE (NEGATIVE) 10/19/20 14:35 Urine Bilirubin NEGATIVE (NEGATIVE) 10/19/20 14:35 Urine Urobilinogen 0.2 (NORMAL) E.U./dL (NORMAL) 10/19/20 14:35 Ur Leukocyte Esterase NEGATIVE (NEGATIVE) 10/19/20 14:35 Ur Microscopic Review NOT INDICATED 10/19/20 14:35 Urine Culture Comments NOT INDICATED 10/19/20 14:35 Nasal Adenovirus (PCR) NOT DETECTED 10/19/20 17:00 Nasal B. parapertussis DNA (PCR) NOT DETECTED 10/19/20 17:00 Nasal Coronavir 229E PCR NOT DETECTED 10/19/20 17:00 Nasal Coronavir HKU1 PCR NOT DETECTED 10/19/20 17:00 Nasal Coronavir NL63 PCR NOT DETECTED 10/19/20 17:00 Nasal Coronavir OC43 PCR NOT DETECTED 10/19/20 17:00 Nasal Enterovir/Rhinovir PCR NOT DETECTED 10/19/20 17:00 Nasal Influenza B PCR NOT DETECTED 10/19/20 17:00 Nasal Influenza A PCR NOT DETECTED 10/19/20 17:00 Nasal Parainfluen 1 PCR NOT DETECTED 10/19/20 17:00 Nasal Parainfluen 2 PCR NOT DETECTED 10/19/20 17:00 Nasal Parainfluen 3 PCR NOT DETECTED 10/19/20 17:00 Nasal Parainfluen 4 PCR NOT DETECTED 10/19/20 17:00 Nasal RSV (PCR) NOT DETECTED 10/19/20 17:00 Nasal B.pertussis DNA PCR NOT DETECTED 10/19/20 17:00 Nasal C.pneumoniae (PCR) NOT DETECTED 10/19/20 17:00 Marcelino Human Metapneumo PCR NOT DETECTED 10/19/20 17:00 Nasal M.pneumoniae (PCR) NOT DETECTED 10/19/20 17:00 Nasal SARS-CoV-2 (PCR) NOT DETECTED 10/19/20 17:00 Ethyl Alcohol < 5.0 mg/dL 10/19/20 16:23 Serum Ketones SMALL (NEGATIVE) H 10/19/20 16:23 ABX Reporting Has patient been on IV antibiotics over the past 48 hours?: No
[2020-10-20] MEDS: DOXEPIN 25 MG CAPSULE PO SCH (21:10)
[2020-10-20] MEDS ORDERED: POTASSIUM CHLORIDE 20 MEQ TABLET PO ONE (21:10)
[2020-10-20] MEDS ORDERED: MAGNESIUM SULFATE 2 GRAM 2 GM/50 ML BAG IV ONE (21:20)
[2020-10-21] MEDS: SODIUM CHLORIDE FLUSH 0.9% 10 ML SYRINGE IVP SCH ×3 (01:35→18:04)
[2020-10-21 06:38] LABS: BASOPHILS % (AUTO) 0.5 %; EOSINOPHILS # (AUTO) 0.1 10^3/uL (0.0-0.7); EOSINOPHILS % (AUTO) 1.9 %; HCT - HEMATOCRIT 34.1 % (37.0-47.0); HGB - HEMOGLOBIN 11.2 g/dL (12.0-16.0); LYMPHOCYTES # (AUTO) 2.4 10^3/uL (1.5-3.5); LYMPHOCYTES % (AUTO) 41.1 %; MEAN CORPUSCULAR HEMOGLOBIN 32.5 pg (27.0-31.0); MEAN CORPUSCULAR HGB CONC 32.8 g/dL (32.0-36.0); MEAN CORPUSCULAR VOLUME 98.8 fL (81.0-99.0); MEAN PLATELET VOLUME 9.2 fL (7.9-10.8); MONOCYTES # (AUTO) 0.5 10^3/uL (0.0-1.0); MONOCYTES % (AUTO) 7.9 %; NEUTROPHILS # (AUTO) 2.7 10^3/uL (1.5-6.6); NEUTROPHILS % (AUTO) 47.2 %; PLT - PLATELET COUNT 286 10^3/uL (130-450); RED BLOOD COUNT 3.45 10^6/uL (4.20-5.40); RED CELL DISTRIBUTION WIDTH 14.5 % (12.0-15.0); WHITE BLOOD COUNT 5.8 x10^3/uL (4.8-10.8)
[2020-10-21 06:47] LABS: CALCIUM 7.5 mg/dL (8.5-10.3); CREATININE 0.7 mg/dL (0.4-1.0); POTASSIUM 3.2 mmol/L (3.5-5.0)
[2020-10-21] MEDS: LEVOTHYROXINE 100 MCG TABLET PO SCH (06:48)
[2020-10-21] MEDS: PANTOPRAZOLE 40 MG VIAL IVP SCH (06:48)
[2020-10-21] MEDS: IPRATROPIUM/ALBUTEROL 3 ML NEB INH SCH ×4 (08:00→19:30)
--- NOTE | 2020-10-21 08:23 | PROVIDER PROGRESS NOTE ---
Assessment/Plan - Problem List (1) Altered mental status Assessment/Plan: Her obtundation was the reason that the brought her in and he thought her altered mental status was from malnutrition and dehydration. She has dementia and had longstanding alcohol abuse history. She stopped alcohol intake 2 weeks ago, according to the history obtained this admission. She is more awake then at admission, because she has been hydrated and electrolytes are being replaced. She still mumbles when speaking and is very lethargic. Her baseline most recent mental status is unknown to me. I have been told that she is hard of hearing which adds to the problem. Plan to continue her Xanax treatment but not to the point of sedating her. Continue iv fluids. (2) History of alcohol abuse Assessment/Plan: The gave me details of her past history: She used to drink beer for many years then switched to being a wine drinker every day and most recently was drinking a bottle of vodka a day. She was already bed-ridden, so he brought her vodka in mixed drinks, because it "relaxed her because she had alot of anxiety", and "the vodka was mixed with either orange juice or tomato juice for the calories and electrolytes", he said. At the last admission, she may have gone through alcohol withdrawal. When she got home 2 weeks ago, she did stop drinking alcohol daily, and he no longer made her any alcoholic drinks whatsoever. She is on oral Thiamine replacement here. Her physical exam suggest that she has alcohol syndrome with a very long philtrum. The head CT shows brain atrophy. The cognitive eval done 3 weeks ago scored 22/30, consistent with mild-moderate dementia. 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 (3) Anorexia Assessment/Plan: I spent 30 min in her room during the lunch hour, watching her refuse to take anything by mouth: juice, a milk shake, Ensure, mashed potatoes. The realizes that she is "shutting down". He does not want her to get a feeding tube. Will request Palliative Care consult regarding end of life management. (4) Malnutrition Assessment/Plan: She refuses to eat, despite urging from the staff and her . Dietary did their nutrition consult yesterday. KERMIT Gaines, agreed with de- escalating from a Reg to soft, which I ordered yesterday. Even goiung to pureed was suggested, but the wanted to see what the pt would take in on a soft diet. We have resumed her Iron replacement (in liquid form) and also started Thiamine, vitamins and Zinc, as per Nutrition. Ensure was added with meal trays. If she will not take a diet orally, and the told me today he does not want her to get a feeding tube. Palliative Care consult will be ordered. (5) Hypokalemia Assessment/Plan: Patient's potassium this morning was 3.2, improve from 2.7 yesterday Continuenvwith replacement Follow BMP daily (6) Dementia Assessment/Plan: She carries this Dx in her chart. Unknown if this is Wernicke's Encephalopathy, from years of alcohol abuse, or Alzheimers. At the last admission, a cognitive eval was done by OT, and she scored 22/30, which equates to mild-moderate demen tia. She cannot make her own decisions therefore. I told the that today. The is allowed to stay in the room with her; she is more amenable to turning and nursing care when she is with him. (7) Sacral decubitus ulcer Assessment/Plan: The reported that she lays supine when sleeping (and he hears her snore). A few days ago, she could get up to pivoy and sit in a recliner. She has not walked in about a week and a half however. She did have diarrhea, and Culturell has been ordered to prevent further anti- biotic associated diarrhea. The apparently turned away the Home Health people, who had been arranged after the last admission, 2 weeks ago, and said it is because "she did not want the help of strangers". SW was informed. She cannot make sound medical decisions any longer, I told the today. The pt needs assisted care and is a candidate for SNF for wound management, since the performed what he could and "she refused" a Home Health RN. He told me today that he cannot take her home and do all that care for her any longer. Ointment ordered to area of skin breakdown. (8) Decubitus ulcer, heel, left, unstageable Assessment/Plan: The gave me complete history on this today: She has had this for about a year, she is seeing her PCP about it, it started as a blood blister, it scabbed over and the scab fell off and all that was left was a tiny pinpoint but deep ulcer. It is most recently started to turn red again since she has contact with her heels on the bed or recliner. Will order topical wound care and elevate the leg with a pillow. (9) Hypothyroidism Assessment/Plan: On Synthroid 100 mcg p.o. daily except on Friday, ordered while here. (10) Iron deficiency anemia Assessment/Plan: Iron replacement restarted with liquid FeSO4. Follow CBC daily. (11) Lower extremity edema Assessment/Plan: Likely related to poor nutritional status (and low Albumen) vs cor pulmonale from COPD. Will not give diuretics, since she needs hydration. (12) COPD without exacerbation Assessment/Plan: Her inhalers were ordered as nebs and she is on O2 at home, continued here. (13) Hx of essential hypertension Assessment/Plan: She was on Lisinopril 5 mg daily at home. Will stop this as she is not HTN-víctor. - Current Meds Current Meds: Current Medications Generic Name Dose Route Start Last Admin Trade Name Freq PRN Reason Stop Dose Admin Albuterol/Ipratropium 3 ml 10/20/20 15:00 10/20/20 18:11 Ipratropium/Albuterol 3 Ml Neb INH 3 ml RTQID NARDA Administration Doxepin HCl 250 mg 10/20/20 21:00 10/20/20 21:10 Doxepin 25 Mg Capsule PO 250 mg QPM NARDA Administration Enoxaparin Sodium 40 mg 10/20/20 09:00 10/20/20 09:00 Enoxaparin 40 Mg/0.4 Ml Syringe SUBQ 40 mg DAILY NARDA Administration Potassium Chloride/Dextrose/Sod Cl 1,000 mls @ 75 mls/hr 10/19/20 23:00 10/20/20 18:54 D5.45ns W/20 Meq Kcl IV 75 mls/hr .[id number] NARDA Administration Lactobacillus Rhamnosus 1 cap 10/20/20 09:00 10/20/20 09:00 Lactobacillus Rhamnosus Gg Capsule PO 1 cap DAILY NARDA Administration Levothyroxine Sodium 100 mcg 10/21/20 07:00 10/21/20 06:48 Levothyroxine 100 Mcg Tablet PO 100 mcg [id number]@0700 NARDA Administration Nystatin 1 applic 10/19/20 21:00 10/20/20 21:10 Nystatin Powder 15 Gm TOP 1 applic BID NARDA Administration Pantoprazole Sodium 40 mg 10/20/20 07:00 10/21/20 06:48 Pantoprazole 40 Mg Vial IVP 40 mg QDAC NARDA Administration Sodium Chloride 10 ml 10/19/20 20:02 10/20/20 06:51 Sodium Chloride Flush 0.9% 10 Ml Syringe IVP 10 ml PRN PRN Administration NEEDED PER PROVIDER ORDERS Sodium Chloride 10 ml 10/20/20 01:00 10/21/20 01:35 Sodium Chloride Flush 0.9% 10 Ml Syringe IVP Not Given 0100,0900,1700 NARDA - Lab Result Fish Bone Diagrams: 10/21/20 06:36 10/21/20 06:36 - Additional Planning My Orders: My Active Orders 10/20/20 14:41 Oxygen [Oxygen Therapy] [RC] .PRN 10/20/20 14:42 Nebulizer/MDI Tx. [RC] .QID/ Q4 PRN Resp Teach Nebulizer/MDI [RC] .ONCE Albuterol 2.5 mg INH RTQ4H PRN 10/20/20 15:00 Ipratropium/Albuterol [Duoneb] 3 ml INH RTQID 10/20/20 Dinner DIET [Soft Mechanical Diet] [DIET] 10/20/20 21:00 Doxepin [SINEquan] 250 mg PO QPM 10/21/20 07:00 Levothyroxine [Synthroid] 100 mcg PO [id number]@0700 10/21/20 08:00 Vitamin [Trinatal Rx 1] 1 tab PO DAILYWM 10/21/20 09:00 Thiamine [Vitamin B-1] 100 mg PO DAILY lisinopriL [Zestril] 5 mg PO DAILY 10/21/20 12:00 Ferrous Sulfate Liquid [Feosol Liquid] 300 mg PO QDLUNCH Subjective - Subjective Patient Reports: Other (Speech is garbled, lips and tongue are dry and dentition is poor.) Nursing Reports: Other (Refusing all po nutrition intake, but took a.m. pills.) Objective Vital Signs: Vital Signs - 24 hr 10/20/20 10/20/20 10/20/20 11:25 11:30 13:00 Temperature 36.8 C Heart Rate Heart Rate [ 97 98 Activity] Heart Rate [ 95 Brachial] Heart Rate [ 93 Sitting] Respiratory 16 Rate Blood Pressure 129/56 L 125/67 [Activity] Blood Pressure 125/67 [Right Brachial artery] Blood Pressure 126/56 L 129/56 L [Sitting] O2 Saturation 96 10/20/20 10/20/20 10/20/20 14:39 15:08 16:00 Temperature 36.8 C 36.3 C L Heart Rate 100 91 Heart Rate [ Activity] Heart Rate [ 101 H Brachial] Heart Rate [ Sitting] Respiratory 18 16 18 Rate Blood Pressure [Activity] Blood Pressure 114/61 [Right Brachial artery] Blood Pressure [Sitting] O2 Saturation 98 96 10/20/20 10/20/20 10/20/20 18:13 21:48 23:26 Temperature 36.8 C 36.9 C Heart Rate 101 H Heart Rate [ Activity] Heart Rate [ 100 95 Brachial] Heart Rate [ Sitting] Respiratory 18 18 19 Rate Blood Pressure [Activity] Blood Pressure 116/52 L 102/45 L [Right Brachial artery] Blood Pressure [Sitting] O2 Saturation 99 100 10/21/20 06:48 Temperature 36.9 C Heart Rate Heart Rate [ Activity] Heart Rate [ 96 Brachial] Heart Rate [ Sitting] Respiratory 20 Rate Blood Pressure [Activity] Blood Pressure 121/66 [Right Brachial artery] Blood Pressure [Sitting] O2 Saturation 100 Oxygen O2 Source Nasal cannula I&O (Last 24 Hrs): Intake and Output Totals x24h 10/19/20 10/20/20 10/21/20 23:59 23:59 23:59 Intake Total 4893.784 1269.867 Output Total 0 500 Balance 0211.732 4121.867 -500 General: Other (Lethargic, but awakens. Disheveled. Has long philtrum (consistent with alcohol syndrome).) HEENT: Other (Dry oral mucosa, poor dentition, has on O2 per n.c.) Neck: Supple, No JVD Neuro: Disoriented, Other (Fine intentional tremor of hands. Speech is garbled. She is [place] bilaterally.) Cardiovascular: Regular rate Respiratory: No respiratory distress Abdomen: Normal bowel sounds, Soft, No masses, Other (Poss fluid wave) Extremities: Other (Trace ankle edema, L heel ulcer open to air, not red.) - Results Results: Laboratory Results WBC 5.8 x10^3/uL (4.8-10.8) 10/21/20 06:36 RBC 3.45 10^6/uL (4.20-5.40) L 10/21/20 06:36 Hgb 11.2 g/dL (12.0-16.0) L 10/21/20 06:36 Hct 34.1 % (37.0-47.0) L 10/21/20 06:36 MCV 98.8 fL (81.0-99.0) 10/21/20 06:36 MCH 32.5 pg (27.0-31.0) H 10/21/20 06:36 MCHC 32.8 g/dL (32.0-36.0) 10/21/20 06:36 RDW 14.5 % (12.0-15.0) 10/21/20 06:36 Plt Count 286 10^3/uL (130-450) 10/21/20 06:36 MPV 9.2 fL (7.9-10.8) 10/21/20 06:36 Neut # (Auto) 2.7 10^3/uL (1.5-6.6) 10/21/20 06:36 Lymph # (Auto) 2.4 10^3/uL (1.5-3.5) 10/21/20 06:36 [place] # (Auto) 0.5 10^3/uL (0.0-1.0) 10/21/20 06:36 Eos # (Auto) 0.1 10^3/uL (0.0-0.7) 10/21/20 06:36 Baso # (Auto) 0.0 10^3/uL (0.0-0.1) 10/21/20 06:36 Absolute Nucleated RBC 0.00 x10^3/uL 10/21/20 06:36 Nucleated RBC % 0.0 /100WBC 10/21/20 06:36 VBG pH 7.344 (7.31-7.41) 10/19/20 18:27 VBG pCO2 41.4 mmHg (41-51) 10/19/20 18:27 VBG pO2 30.5 mmHg (25-47) 10/19/20 18:27 VBG HCO3 22.0 mmol/L (23-28) L 10/19/20 18:27 VBG Total CO2 23.3 mmol/L (24-29) L 10/19/20 18:27 VBG O2 Saturation 51.5 % (60-80) L 10/19/20 18:27 VBG Base Excess -3.4 mmol/L (-2 - +2) L 10/19/20 18:27 Sodium 140 mmol/L (135-145) 10/21/20 06:36 Potassium 3.2 mmol/L (3.5-5.0) L 10/21/20 06:36 Chloride 108 mmol/L (101-111) 10/21/20 06:36 Carbon Dioxide 24 mmol/L (21-32) 10/21/20 06:36 Anion Gap 8.0 (6-13) 10/21/20 06:36 BUN 7 mg/dL (6-20) 10/21/20 06:36 Creatinine 0.7 mg/dL (0.4-1.0) 10/21/20 06:36 Estimated GFR (MDRD) 81 (>89) L 10/21/20 06:36 Glucose 94 mg/dL (70-100) 10/21/20 06:36 Lactic Acid 1.0 mmol/L (0.5-2.2) 10/19/20 16:23 Calcium 7.5 mg/dL (8.5-10.3) L 10/21/20 06:36 Magnesium 2.0 mg/dL (1.7-2.8) 10/19/20 16:23 Total Bilirubin 0.8 mg/dL (0.2-1.0) 10/19/20 16:23 AST 25 IU/L (10-42) 10/19/20 16:23 ALT 16 IU/L (10-60) 10/19/20 16:23 Alkaline Phosphatase 101 IU/L (42-121) 10/19/20 16:23 Ammonia < 10.0 umol/L (7-35) 10/19/20 16:23 Total Protein 4.5 g/dL (6.7-8.2) L 10/19/20 16:23 Albumin 2.1 g/dL (3.2-5.5) L 10/19/20 16:23 Globulin 2.4 g/dL (2.1-4.2) 10/19/20 16:23 Albumin/Globulin Ratio 0.9 (1.0-2.2) L 10/19/20 16:23 Lipase 14 U/L (22-51) L 10/19/20 16:23 TSH 0.14 uIU/mL (0.34-5.60) L 10/20/20 05:12 Free T4 1.30 ng/dL (0.58-1.64) 10/20/20 07:56 Urine Color YELLOW 10/19/20 14:35 Urine Clarity CLEAR (CLEAR) 10/19/20 14:35 Urine pH 6.0 PH (5.0-7.5) 10/19/20 14:35 Ur Specific [place] 1.025 (1.002-1.030) 10/19/20 14:35 Urine Protein NEGATIVE mg/dL (NEGATIVE) 10/19/20 14:35 Urine Glucose (UA) NEGATIVE mg/dL (NEGATIVE) 10/19/20 14:35 Urine Ketones >=80 mg/dL (NEGATIVE) H 10/19/20 14:35 Urine Occult Blood NEGATIVE (NEGATIVE) 10/19/20 14:35 Urine Nitrite NEGATIVE (NEGATIVE) 10/19/20 14:35 Urine Bilirubin NEGATIVE (NEGATIVE) 10/19/20 14:35 Urine Urobilinogen 0.2 (NORMAL) E.U./dL (NORMAL) 10/19/20 14:35 Ur Leukocyte Esterase NEGATIVE (NEGATIVE) 10/19/20 14:35 Ur Microscopic Review NOT INDICATED 10/19/20 14:35 Urine Culture Comments NOT INDICATED 10/19/20 14:35 Nasal Adenovirus (PCR) NOT DETECTED 10/19/20 17:00 Nasal B. parapertussis DNA (PCR) NOT DETECTED 10/19/20 17:00 Nasal Coronavir 229E PCR NOT DETECTED 10/19/20 17:00 Nasal Coronavir HKU1 PCR NOT DETECTED 10/19/20 17:00 Nasal Coronavir NL63 PCR NOT DETECTED 10/19/20 17:00 Nasal Coronavir OC43 PCR NOT DETECTED 10/19/20 17:00 Nasal Enterovir/Rhinovir PCR NOT DETECTED 10/19/20 17:00 Nasal Influenza B PCR NOT DETECTED 10/19/20 17:00 Nasal Influenza A PCR NOT DETECTED 10/19/20 17:00 Nasal Parainfluen 1 PCR NOT DETECTED 10/19/20 17:00 Nasal Parainfluen 2 PCR NOT DETECTED 10/19/20 17:00 Nasal Parainfluen 3 PCR NOT DETECTED 10/19/20 17:00 Nasal Parainfluen 4 PCR NOT DETECTED 10/19/20 17:00 Nasal RSV (PCR) NOT DETECTED 10/19/20 17:00 Nasal B.pertussis DNA PCR NOT DETECTED 10/19/20 17:00 Nasal C.pneumoniae (PCR) NOT DETECTED 10/19/20 17:00 Marcelino Human Metapneumo PCR NOT DETECTED 10/19/20 17:00 Nasal M.pneumoniae (PCR) NOT DETECTED 10/19/20 17:00 Nasal SARS-CoV-2 (PCR) NOT DETECTED 10/19/20 17:00 Ethyl Alcohol < 5.0 mg/dL 10/19/20 16:23 Serum Ketones SMALL (NEGATIVE) H 10/19/20 16:23
[2020-10-21] MEDS: ENOXAPARIN 40 MG/0.4 ML SYRINGE SUBQ SCH (08:48)
[2020-10-21] MEDS: THIAMINE 100 MG TABLET PO SCH (08:48)
[2020-10-21] MEDS: LACTOBACILLUS RHAMNOSUS GG CAPSULE PO SCH (08:48)
[2020-10-21] MEDS: NYSTATIN POWDER 15 GM TOP SCH ×2 (08:48→21:40)
[2020-10-21] MEDS: PRENATAL VITAMIN TABLET PO SCH (08:48)
[2020-10-21] MEDS ORDERED: lisinopriL 5 MG TABLET PO SCH (09:00)
[2020-10-21] MEDS: D5.45NS W/20 MEQ KCL 1,000 ML IV SCH ×2 (10:51→23:55)
[2020-10-21] MEDS: FERROUS SULFATE 300 MG/5 ML UDC PO SCH (12:31)
--- NOTE | 2020-10-21 12:57 | ADVANCE CARE PLANNING NOTE ---
Advance Care Planning - Planning Encounter Date: 10/21/20 Time: 12:00 Purpose: To determine from the , his wishes regarding aggressiveness of care going forward, given her refusal to eat or drink. Parties in Attendance: I spoke to the patient and the , who was at her bedside. Her RN, Mell Gonzalez heard portions of the discussion as she was trying to have the patient eat mashed potatoes, orange juice, a milk shake and a strawberry Ensure. - Diagnosis for Encounter (1) History of alcohol abuse Summary: The gave me details of her past history: She used to drink beer for many years then switched to being a wine drinker every day and most recently was drinking a bottle of vodka a day. She was already bed-ridden, so he brought her vodka in mixed drinks, because it "relaxed her because she had alot of anxiety", and "the vodka was mixed with either orange juice or tomato juice for the calories and electrolytes", he said. At the last admission, she may have gone through alcohol withdrawal. When she got home 2 weeks ago, she did stop drinking alcohol daily, and he no longer made her any alcoholic drinks whatsoever. She is on oral Thiamine replacement here. Her physical exam suggest that she has alcohol syndrome with a very long philtrum. The head CT shows brain atrophy. The cognitive eval done 3 weeks ago scored 22/30, consistent with mild-moderate dementia. 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 (2) Dementia Summary: She carries this Dx in her chart. Unknown if this was Wernicke's Encephalopathy, from years of alcohol abuse, or Alzheimers. At the last admission, a cognitive eval was done by OT, and she scored 22/30, which equates to mild-moderate dementia. She cannot make her own decisions therefore. I told the that today. The is allowed to stay in the room with her; she is more amenable to turning and nursing care when she is with him. - Encounter Subjective/Patient's Story: The provides all the information, the patient is disoriented x3 and has garbled speech when she answers. There are 3 weeks ago for a week with altered mental status from excessive doxepin, Xanax use and alcohol abuse. She had a UTI, was discharged on several days of antibiotics, developed diarrhea and this caused skin breakdown in the sacrum. She stopped drinking alcohol, has had none for the last 2 weeks. He says that she would get up and pivot to a recliner but for the past 10 days has only been in bed, getting weaker, and for the last 2 or 3 days has refused to eat or drink anything. Because of obtundation, he brought her to the ER again. Objective/Medical Story: The patient has brain atrophy on CT scan and the physical exam is consistent with Wernicke's encephalopathy with garbled speech, disorientation, intentional tremor of her hands, and poor gait. She is also malnourished and dehydrated. The patient refuses to eat or drink anything, I witnessed this during my 30 minutes at her bedside during this visit in the room with her, over the lunch hour. The patient does not say why she refuses everything. And when asked several times if she understands that if she does not eat she will , she gives a garbled answer on a different subject. The then stated he does not want her to have a feeding tube. He stated that he cannot take care of her anymore since she will not take in nourishment and is shutting down. He said to let nature take its course, and if her body is shutting down and she is dying, then she is dying. Plan: Will obtain a Palliative Care consult, since she is anorexic and likely to progress to a coma and will need end-of-life care. (Today is Sat, and the Palliative Care team is not available until Mon). Will continue iv hydration. Continue a soft or pureed diet and encourage to eat. Code Status: Do Not Attempt Resuscitation Time spent on advance care plannin min
[2020-10-21] MEDS: DOXEPIN 25 MG CAPSULE PO SCH (21:40)
[2020-10-21] MEDS ORDERED: diphenhydrAMINE INJ 50 MG/ML VIAL IVP STA (23:08)
[2020-10-22 05:12] LABS: BASOPHILS % (AUTO) 0.7 %; EOSINOPHILS # (AUTO) 0.1 10^3/uL (0.0-0.7); EOSINOPHILS % (AUTO) 1.5 %; HCT - HEMATOCRIT 32.3 % (37.0-47.0); HGB - HEMOGLOBIN 10.2 g/dL (12.0-16.0); LYMPHOCYTES # (AUTO) 1.8 10^3/uL (1.5-3.5); LYMPHOCYTES % (AUTO) 32.4 %; MEAN CORPUSCULAR HEMOGLOBIN 31.4 pg (27.0-31.0); MEAN CORPUSCULAR HGB CONC 31.6 g/dL (32.0-36.0); MEAN CORPUSCULAR VOLUME 99.4 fL (81.0-99.0); MEAN PLATELET VOLUME 9.4 fL (7.9-10.8); MONOCYTES # (AUTO) 0.5 10^3/uL (0.0-1.0); MONOCYTES % (AUTO) 8.9 %; PLT - PLATELET COUNT 234 10^3/uL (130-450); RED BLOOD COUNT 3.25 10^6/uL (4.20-5.40); RED CELL DISTRIBUTION WIDTH 14.6 % (12.0-15.0); WHITE BLOOD COUNT 5.5 x10^3/uL (4.8-10.8)
[2020-10-22 05:28] LABS: ALBUMIN 1.9 g/dL (3.2-5.5); BILIRUBIN,DIRECT 0.2 mg/dL (0.1-0.5); BILIRUBIN,TOTAL 0.4 mg/dL (0.2-1.0); CALCIUM 7.4 mg/dL (8.5-10.3); CREATININE 0.5 mg/dL (0.4-1.0); MAGNESIUM 1.9 mg/dL (1.7-2.8); POTASSIUM 3.3 mmol/L (3.5-5.0); TOTAL PROTEIN 4.4 g/dL (6.7-8.2)
[2020-10-22] MEDS: SODIUM CHLORIDE FLUSH 0.9% 10 ML SYRINGE IVP SCH ×3 (05:47→17:15)
[2020-10-22] MEDS: PANTOPRAZOLE 40 MG VIAL IVP SCH (06:00)
[2020-10-22] MEDS ORDERED: diphenhydrAMINE 25 MG CAPSULE PO PRN (08:21)
--- NOTE | 2020-10-22 09:05 | PROVIDER PROGRESS NOTE ---
Assessment/Plan - Problem List (1) Altered mental status Assessment/Plan: Her obtundation was the reason that the brought her in and he thought her altered mental status was from malnutrition and dehydration. Today it was learned that he was giving her the Xanax tid prn 3 times a day and at bedtime for sleep. Also that she was on 2.5L of O2 at home, whereas here she only needs 1L, therefore she may have had CO2 retention and narcosis, from no hypoxic ventilatory drive in a COPDer Last night, she was "agitated" and the wondered if she "needed restraints" and also asked her RN if she was going through Xanax withdrawal. She was ordered a dose of Benadryl and slept after that. She is more awake then at admission. She still mumbles when speaking and is disoriented, was cooperative to be moved on day shift, but swinging at help on 2nd shift. Her baseline most recent mental status is unknown to me. I have been told that she is hard of hearing which adds to the problem. Will order her Xanax at bedtime prn, but not Xanax to the point of over-sedating her. Also will order prn Benadryl as an option for insomnia. (2) COPD (chronic obstructive pulmonary disease) Assessment/Plan: Today the said that the patient was on 2.5 L oxygen at home continuously. Here she has good oxygen saturations on 1L O2 per n.c. This suggests that she may have had CO2 narcosis at home from excessive supplemental oxygen and high O2 sats, causing no respiratory hypoxic drive to ventilate in a COPDer. Titrate O2 to keep sats > 88%. Her inhalers were ordered as nebs to continue here. Will add Pulmicort. (3) History of alcohol abuse Assessment/Plan: The gave me details of her past history: She used to drink beer for many years then switched to being a wine drinker every day and most recently was drinking a bottle of vodka a day. She was already bed-ridden, so he brought her vodka in mixed drinks, because it "relaxed her because she had alot of anxiety", and "the vodka was mixed with either orange juice or tomato juice for the calories and electrolytes", he said. At the last admission, she may have gone through alcohol withdrawal. When she got home 2 weeks ago, she did stop drinking alcohol daily, and he no longer made her any alcoholic drinks whatsoever. She is on oral Thiamine replacement here. Her physical exam suggest that she has alcohol syndrome with a very long philtrum. The head CT showed brain atrophy. The cognitive eval done 3 weeks ago scored 22/30, consistent with mild-moderate dementia. 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 (4) Dementia Assessment/Plan: She carries this Dx in her chart. Unknown if this is Wernicke's Encephalopathy, from years of alcohol abuse, or Alzheimers. At the last admission, a cognitive eval was done by OT, and she scored 22/30, which equates to mild-moderate dementia. She cannot make her own decisions therefore. She cannot decide if she gets Home Health service or not, since "she refused the Home Health RN" when it was arranged at the last admission. I told the yesterday that she cannot make decisions about her care. The is allowed to stay in the room with her; she is more amenable to turning and nursing care when she is with him. She was more combative this afternoon, will resume 1 daytime dose of Xanax and allow hs prn Xanax. Continue Doxepin. (5) Anorexia Assessment/Plan: I spent 30 min in her room during the lunch hour yesterday, watching her refuse to take anything by mouth: juice, a milk shake, Ensure, mashed potatoes. The realizes that she is "shutting down". He does not want her to get a feeding tube. He said he understands this may be leading to Comfort Care then Hospice Will request Palliative Care consult regarding possible end of life management. (6) Malnutrition Assessment/Plan: She refuses to eat, despite urging from the staff and her . Dietary did their nutrition consult. KERMIT Gaines, agreed with de-escalating from a Reg diet to soft, which I ordered yesterday. Going to pureed was suggested by KERMIT, but the wanted to see what the pt would take in on a soft diet. I will order pureed diet starting today. We have resumed her Iron replacement (in liquid form) and also started Thiamine, vitamins and Zinc, as per Nutrition. Ensure was added with meal trays. If she will not take a diet orally, and the told me today he does not want her to get a feeding tube. Palliative Care consult will be ordered. (7) Anemia Qualifiers: Anemia type: iron deficiency Assessment/Plan: Liquid iron replacement has been ordered. She had a black stool in the ED, it was sent for guaic test, and that was neg. (8) Hypokalemia Assessment/Plan: Patient's potassium this morning was 3.3, improve from 2.7 at admission >> 3.2 yesterday Continuen with K replacement in her maintenance fluids and will give K riders again today. Follow BMP daily (9) Sacral decubitus ulcer Assessment/Plan: The reported that she lays supine when sleeping and has not walked in about a week and a half. She did have diarrhea, and Culturelle has been ordered to prevent further anti- biotic associated diarrhea. The apparently turned away the Home Health people, who had been arranged after the last admission, 2 weeks ago, and said it is because "she did not want the help of strangers". SW was informed. She cannot make sound medical decisions any longer, I told the that yesterday. The pt needs fdc care and is a candidate for SNF for wound management, since the performed what he could and "she refused" a Home Health RN. He told me that he cannot take her home and do all that care for her any longer. Ointment ordered to area of skin breakdown. (10) Decubitus ulcer, heel, left, unstageable Assessment/Plan: The gave me complete history on this: She has had this for about a year, she was seeing her PCP about it, it started as a blood blister, it scabbed over and the scab fell off and all that was left was a tiny pinpoint but deep ulcer. It is most recently started to turn red again since her heels have constant contact with the bed or recliner. Will order topical wound care and elevate the leg with a pillow. (11) HTN (hypertension) Assessment/Plan: She was on Lisinopril 5 mg daily at home. It was stopped yesterday, since she had a "soft" BP from having inadequate oral intake. Today BP jess to 150's and HR is 107. Will start low dose B-1 selective B-kyleigh in a COPDer, with Toprol, for BP and HR control. (12) Hypothyroidism Assessment/Plan: She does swallow her morning meds, one of which is Synthroid. The TSH was checked at the last recent admission 2 weeks ago, and was low at 0.14, but the free T4 was normal at 1.3. Continue present dose. - Current Meds Current Meds: Current Medications Generic Name Dose Route Start Last Admin Trade Name Cynthia PRN Reason Stop Dose Admin Albuterol/Ipratropium 3 ml 10/20/20 15:00 10/21/20 19:30 Ipratropium/Albuterol 3 Ml Neb INH 3 ml RTQID NARDA Administration Doxepin HCl 250 mg 10/20/20 21:00 10/21/20 21:40 Doxepin 25 Mg Capsule PO 100 mg QPM NARDA Administration Enoxaparin Sodium 40 mg 10/20/20 09:00 10/21/20 08:48 Enoxaparin 40 Mg/0.4 Ml Syringe SUBQ 40 mg DAILY NARDA Administration Ferrous Sulfate 300 mg 10/21/20 12:00 10/21/20 12:31 Ferrous Sulfate 300 Mg/5 Ml Udc PO 300 mg QDLUNCH NARDA Administration Potassium Chloride/Dextrose/Sod Cl 1,000 mls @ 75 mls/hr 10/19/20 23:00 10/21/20 23:55 D5.45ns W/20 Meq Kcl IV 75 mls/hr .[id number] NARDA Administration Lactobacillus Rhamnosus 1 cap 10/20/20 09:00 10/21/20 08:48 Lactobacillus Rhamnosus Gg Capsule PO 1 cap DAILY NARDA Administration Levothyroxine Sodium 100 mcg 10/21/20 07:00 10/21/20 06:48 Levothyroxine 100 Mcg Tablet PO 100 mcg [id number] NARDA Administration Nystatin 1 applic 10/19/20 21:00 10/21/20 21:40 Nystatin Powder 15 Gm TOP 1 applic BID NARDA Administration Pantoprazole Sodium 40 mg 10/20/20 07:00 10/22/20 06:00 Pantoprazole 40 Mg Vial IVP 40 mg QDAC NARDA Administration Multivit/Folic Acid/Iron 1 tab 10/21/20 08:00 10/21/20 08:48 Vitamin Tablet PO 1 tab DAILYWM NARDA Administration Sodium Chloride 10 ml 10/19/20 20:02 10/20/20 06:51 Sodium Chloride Flush 0.9% 10 Ml Syringe IVP 10 ml PRN PRN Administration NEEDED PER PROVIDER ORDERS Sodium Chloride 10 ml 10/20/20 01:00 10/22/20 05:47 Sodium Chloride Flush 0.9% 10 Ml Syringe IVP 10 ml 0100,0900,1700 NARDA Administration Thiamine HCl 100 mg 10/21/20 09:00 10/21/20 08:48 Thiamine 100 Mg Tablet PO 100 mg DAILY NARDA Administration - Lab Result Fish Bone Diagrams: 10/22/20 04:58 10/22/20 04:58 - Additional Planning My Orders: My Active Orders 10/21/20 09:00 Thiamine [Vitamin B-1] 100 mg PO DAILY 10/21/20 12:00 Ferrous Sulfate Liquid [Feosol Liquid] 300 mg PO QDLUNCH 10/22/20 08:21 diphenhydrAMINE [Benadryl] 25 mg PO QPM PRN 10/22/20 08:59 ALPRAZolam [Alprazolam] 0.5 mg PO QPM PRN 10/22/20 09:00 Potassium Chlor 10 Meq/100 ml [Potassium Chloride] 10 meq in 100 ml IV Q1H 10/22/20 Lunch Dysphagia Puree Diet [DIET] Subjective - Subjective Patient Reports: Shortness of Breath Nursing Reports: Confused, Other (Agitated, kicking, fidgeting, trying to turn and get OOB.) Objective Vital Signs: Vital Signs - 24 hr 10/21/20 10/21/20 10/21/20 11:42 15:49 16:15 Temperature 36.3 C L 36.5 C Heart Rate 102 H Heart Rate [ 95 101 H Brachial] Respiratory 20 22 18 Rate Blood Pressure 141/63 H [Left Brachial artery] Blood Pressure 122/64 [Right Brachial artery] O2 Saturation 94 100 10/21/20 10/21/20 10/21/20 19:45 21:00 23:48 Temperature 37.3 C 36.9 C Heart Rate 95 Heart Rate [ 97 103 H Brachial] Respiratory 16 20 18 Rate Blood Pressure 138/97 H 130/59 L [Left Brachial artery] Blood Pressure [Right Brachial artery] O2 Saturation 94 96 10/22/20 10/22/20 06:00 08:02 Temperature 37.0 C Heart Rate Heart Rate [ 103 H 106 H Brachial] Respiratory 18 20 Rate Blood Pressure 140/65 H 157/92 H [Left Brachial artery] Blood Pressure [Right Brachial artery] O2 Saturation 100 97 Oxygen O2 Source Nasal cannula I&O (Last 24 Hrs): Intake and Output Totals x24h 10/20/20 10/21/20 10/22/20 23:59 23:59 23:59 Intake Total 8639.177 0709 Output Total 0 500 Balance 1081.047 4638 General: Alert HEENT: Other (Mucosa dry, poor dentition. Skin is tenting.) Neuro: Disoriented, Other (Mpves all extrem, more strength than yesterday) Cardiovascular: Regular rate Respiratory: Wheezes, Other (Prlonged exp phase and useing pursed lipped breathing) Abdomen: Soft Genitourinary: Other (Has malone) Rectal: Bloody Stool (Sacrum less red, has Malone) Extremities: No edema, Other (Wound is red, on heel but not swollen or tender.) - Results Results: Laboratory Results WBC 5.5 x10^3/uL (4.8-10.8) 10/22/20 04:58 RBC 3.25 10^6/uL (4.20-5.40) L 10/22/20 04:58 Hgb 10.2 g/dL (12.0-16.0) L 10/22/20 04:58 Hct 32.3 % (37.0-47.0) L 10/22/20 04:58 MCV 99.4 fL (81.0-99.0) H 10/22/20 04:58 MCH 31.4 pg (27.0-31.0) H 10/22/20 04:58 MCHC 31.6 g/dL (32.0-36.0) L 10/22/20 04:58 RDW 14.6 % (12.0-15.0) 10/22/20 04:58 Plt Count 234 10^3/uL (130-450) 10/22/20 04:58 MPV 9.4 fL (7.9-10.8) 10/22/20 04:58 Neut # (Auto) 3.0 10^3/uL (1.5-6.6) 10/22/20 04:58 Lymph # (Auto) 1.8 10^3/uL (1.5-3.5) 10/22/20 04:58 [place] # (Auto) 0.5 10^3/uL (0.0-1.0) 10/22/20 04:58 Eos # (Auto) 0.1 10^3/uL (0.0-0.7) 10/22/20 04:58 Baso # (Auto) 0.0 10^3/uL (0.0-0.1) 10/22/20 04:58 Absolute Nucleated RBC 0.00 x10^3/uL 10/22/20 04:58 Nucleated RBC % 0.0 /100WBC 10/22/20 04:58 VBG pH 7.344 (7.31-7.41) 10/19/20 18:27 VBG pCO2 41.4 mmHg (41-51) 10/19/20 18:27 VBG pO2 30.5 mmHg (25-47) 10/19/20 18:27 VBG HCO3 22.0 mmol/L (23-28) L 10/19/20 18:27 VBG Total CO2 23.3 mmol/L (24-29) L 10/19/20 18:27 VBG O2 Saturation 51.5 % (60-80) L 10/19/20 18:27 VBG Base Excess -3.4 mmol/L (-2 - +2) L 10/19/20 18:27 Sodium 138 mmol/L (135-145) 10/22/20 04:58 Potassium 3.3 mmol/L (3.5-5.0) L 10/22/20 04:58 Chloride 107 mmol/L (101-111) 10/22/20 04:58 Carbon Dioxide 25 mmol/L (21-32) 10/22/20 04:58 Anion Gap 6.0 (6-13) 10/22/20 04:58 BUN 5 mg/dL (6-20) L 10/22/20 04:58 Creatinine 0.5 mg/dL (0.4-1.0) 10/22/20 04:58 Estimated GFR (MDRD) 119 (>89) 10/22/20 04:58 Glucose 87 mg/dL (70-100) 10/22/20 04:58 Lactic Acid 1.0 mmol/L (0.5-2.2) 10/19/20 16:23 Calcium 7.4 mg/dL (8.5-10.3) L 10/22/20 04:58 Magnesium 1.9 mg/dL (1.7-2.8) 10/22/20 04:58 Total Bilirubin 0.4 mg/dL (0.2-1.0) 10/22/20 04:58 Direct Bilirubin 0.2 mg/dL (0.1-0.5) 10/22/20 04:58 AST 30 IU/L (10-42) 10/22/20 04:58 ALT 21 IU/L (10-60) 10/22/20 04:58 Alkaline Phosphatase 109 IU/L (42-121) 10/22/20 04:58 Ammonia < 10.0 umol/L (7-35) 10/22/20 04:58 Total Protein 4.4 g/dL (6.7-8.2) L 10/22/20 04:58 Albumin 1.9 g/dL (3.2-5.5) L 10/22/20 04:58 Globulin 2.5 g/dL (2.1-4.2) 10/22/20 04:58 Albumin/Globulin Ratio 0.9 (1.0-2.2) L 10/19/20 16:23 Lipase 14 U/L (22-51) L 10/19/20 16:23 TSH 0.14 uIU/mL (0.34-5.60) L 10/20/20 05:12 Free T4 1.30 ng/dL (0.58-1.64) 10/20/20 07:56 Urine Color YELLOW 10/19/20 14:35 Urine Clarity CLEAR (CLEAR) 10/19/20 14:35 Urine pH 6.0 PH (5.0-7.5) 10/19/20 14:35 Ur Specific [place] 1.025 (1.002-1.030) 10/19/20 14:35 Urine Protein NEGATIVE mg/dL (NEGATIVE) 10/19/20 14:35 Urine Glucose (UA) NEGATIVE mg/dL (NEGATIVE) 10/19/20 14:35 Urine Ketones >=80 mg/dL (NEGATIVE) H 10/19/20 14:35 Urine Occult Blood NEGATIVE (NEGATIVE) 10/19/20 14:35 Urine Nitrite NEGATIVE (NEGATIVE) 10/19/20 14:35 Urine Bilirubin NEGATIVE (NEGATIVE) 10/19/20 14:35 Urine Urobilinogen 0.2 (NORMAL) E.U./dL (NORMAL) 10/19/20 14:35 Ur Leukocyte Esterase NEGATIVE (NEGATIVE) 10/19/20 14:35 Ur Microscopic Review NOT INDICATED 10/19/20 14:35 Urine Culture Comments NOT INDICATED 10/19/20 14:35 Nasal Adenovirus (PCR) NOT DETECTED 10/19/20 17:00 Nasal B. parapertussis DNA (PCR) NOT DETECTED 10/19/20 17:00 Nasal Coronavir 229E PCR NOT DETECTED 10/19/20 17:00 Nasal Coronavir HKU1 PCR NOT DETECTED 10/19/20 17:00 Nasal Coronavir NL63 PCR NOT DETECTED 10/19/20 17:00 Nasal Coronavir OC43 PCR NOT DETECTED 10/19/20 17:00 Nasal Enterovir/Rhinovir PCR NOT DETECTED 10/19/20 17:00 Nasal Influenza B PCR NOT DETECTED 10/19/20 17:00 Nasal Influenza A PCR NOT DETECTED 10/19/20 17:00 Nasal Parainfluen 1 PCR NOT DETECTED 10/19/20 17:00 Nasal Parainfluen 2 PCR NOT DETECTED 10/19/20 17:00 Nasal Parainfluen 3 PCR NOT DETECTED 10/19/20 17:00 Nasal Parainfluen 4 PCR NOT DETECTED 10/19/20 17:00 Nasal RSV (PCR) NOT DETECTED 10/19/20 17:00 Nasal B.pertussis DNA PCR NOT DETECTED 10/19/20 17:00 Nasal C.pneumoniae (PCR) NOT DETECTED 10/19/20 17:00 Marcelino Human Metapneumo PCR NOT DETECTED 10/19/20 17:00 Nasal M.pneumoniae (PCR) NOT DETECTED 10/19/20 17:00 Nasal SARS-CoV-2 (PCR) NOT DETECTED 10/19/20 17:00 Ethyl Alcohol < 5.0 mg/dL 10/19/20 16:23 Serum Ketones SMALL (NEGATIVE) H 10/19/20 16:23
[2020-10-22] MEDS ORDERED: ALPRAZolam 0.25 MG TABLET PO PRN (09:10)
[2020-10-22] MEDS: POTASSIUM CHLOR 10 MEQ/100 ML 10 MEQ/100 ML BAG IV SCH ×4 (09:24→12:27)
[2020-10-22] MEDS: ENOXAPARIN 40 MG/0.4 ML SYRINGE SUBQ SCH (09:24)
[2020-10-22] MEDS: PRENATAL VITAMIN TABLET PO SCH (09:24)
[2020-10-22] MEDS: LACTOBACILLUS RHAMNOSUS GG CAPSULE PO SCH (09:26)
[2020-10-22] MEDS: NYSTATIN POWDER 15 GM TOP SCH ×2 (09:26→18:43)
[2020-10-22] MEDS: IPRATROPIUM/ALBUTEROL 3 ML NEB INH SCH ×4 (11:09→20:30)
[2020-10-22] MEDS: THIAMINE 100 MG TABLET PO SCH (12:08)
[2020-10-22] MEDS: METOPROLOL SUCCINATE 25 MG TABLET PO SCH (12:08)
[2020-10-22] MEDS: D5.45NS W/20 MEQ KCL 1,000 ML IV SCH (12:58)
[2020-10-22] MEDS: FERROUS SULFATE 300 MG/5 ML UDC PO SCH (12:59)
[2020-10-22] MEDS ORDERED: MORPHINE 2 MG/ML CARPUJECT IVP ONE (17:10)
[2020-10-22] MEDS ORDERED: LORazepam 2 MG/ML VIAL IVP STA (19:57)
[2020-10-22] MEDS: BUDESONIDE 0.5 MG/2 ML NEB INH SCH (20:30)
[2020-10-22] MEDS: DOXEPIN 25 MG CAPSULE PO SCH (21:12)
[2020-10-22] MEDS: ALPRAZolam 0.25 MG TABLET PO SCH (22:42)
[2020-10-23] MEDS: SODIUM CHLORIDE FLUSH 0.9% 10 ML SYRINGE IVP SCH ×3 (01:11→22:14)
[2020-10-23] MEDS: D5.45NS W/20 MEQ KCL 1,000 ML IV SCH ×2 (02:21→15:59)
[2020-10-23] MEDS: PANTOPRAZOLE 40 MG VIAL IVP SCH (06:02)
[2020-10-23] MEDS: LEVOTHYROXINE 100 MCG TABLET PO SCH (06:02)
[2020-10-23 06:05] LABS: BASOPHILS % (AUTO) 0.7 %; EOSINOPHILS # (AUTO) 0.1 10^3/uL (0.0-0.7); EOSINOPHILS % (AUTO) 1.4 %; HCT - HEMATOCRIT 33.2 % (37.0-47.0); HGB - HEMOGLOBIN 10.5 g/dL (12.0-16.0); LYMPHOCYTES # (AUTO) 2.1 10^3/uL (1.5-3.5); LYMPHOCYTES % (AUTO) 35.9 %; MEAN CORPUSCULAR HEMOGLOBIN 31.2 pg (27.0-31.0); MEAN CORPUSCULAR HGB CONC 31.6 g/dL (32.0-36.0); MEAN CORPUSCULAR VOLUME 98.5 fL (81.0-99.0); MEAN PLATELET VOLUME 9.9 fL (7.9-10.8); MONOCYTES # (AUTO) 0.6 10^3/uL (0.0-1.0); MONOCYTES % (AUTO) 9.7 %; NEUTROPHILS % (AUTO) 50.7 %; PLT - PLATELET COUNT 159 10^3/uL (130-450); RED BLOOD COUNT 3.37 10^6/uL (4.20-5.40); RED CELL DISTRIBUTION WIDTH 14.6 % (12.0-15.0); WHITE BLOOD COUNT 5.8 x10^3/uL (4.8-10.8)
[2020-10-23 06:13] LABS: BUN - BLOOD UREA NITROGEN < 5 mg/dL (6-20); CALCIUM 7.4 mg/dL (8.5-10.3); CARBON DIOXIDE - CO2 25 mmol/L (21-32); CHLORIDE 107 mmol/L (101-111); CREATININE 0.6 mg/dL (0.4-1.0); GFR - MDRD 97 (>89); GLUCOSE 98 mg/dL (70-100); SODIUM 138 mmol/L (135-145)
[2020-10-23] MEDS ORDERED: ACETAMINOPHEN 325 MG TABLET PO PRN (07:03)
[2020-10-23] MEDS: BUDESONIDE 0.5 MG/2 ML NEB INH SCH (07:28)
[2020-10-23] MEDS: IPRATROPIUM/ALBUTEROL 3 ML NEB INH SCH ×3 (07:28→15:29)
[2020-10-23] MEDS: PRENATAL VITAMIN TABLET PO SCH (10:12)
[2020-10-23] MEDS: ENOXAPARIN 40 MG/0.4 ML SYRINGE SUBQ SCH (10:12)
[2020-10-23] MEDS: LACTOBACILLUS RHAMNOSUS GG CAPSULE PO SCH (10:12)
[2020-10-23] MEDS: METOPROLOL SUCCINATE 25 MG TABLET PO SCH (10:12)
[2020-10-23] MEDS: THIAMINE 100 MG TABLET PO SCH (10:12)
[2020-10-23] MEDS: NYSTATIN POWDER 15 GM TOP SCH ×2 (10:13→22:15)
[2020-10-23] MEDS: ALPRAZolam 0.25 MG TABLET PO SCH ×2 (12:10→22:13)
[2020-10-23] MEDS: FERROUS SULFATE 300 MG/5 ML UDC PO SCH (12:11)
--- NOTE | 2020-10-23 17:17 | CONSULTATION NOTE ---
Palliative Care Consultation - Referral Referring Provider: Erlinda Harris MD Time of Visit: [id number] Referral setting: Hospitalized patient Referral Reason: Failure to Thrive/AMS/Anorexia - Information Sources Records reviewed: Previous records reviewed History/Review of Systems obtained from: Family ( Preet) Exam limitations: Clinical condition (patient had just taken xanax; sleeping soundly) - History of Present Illness Brief History of Present Illness: This is a 80-year-old woman who presents as a failure to thrive, she has been deteriorating, attributed to her chronic alcoholism, underlying COPD/emphysema, protein calorie malnutrition, and underlying anxiety disorder. reports patient's decline has been more noticeable since her diagnosis of pneumonia in 2018, and a long extended stay at [facility]. She continued to decline functionally, and never returned to previous level of function, and been having worsening anxiety, falls, but more acutely deteriorated over the last several weeks. He reports contributing factor for her last hospitalization, she had run out of her alprazolam 4 days earlier, and had seizure withdrawal, came into the hospital. She was hospitalized from 10/12-10/05 with metabolic encephalopathy, elevated LFTs, prior to this though she also had malnutrition and decreased intake, though was known to be taking on a regular basis liter of vodka daily along with her Xanax 0.5 mg 3 times daily, sometimes he would use 2 at night to help with sleep. She is not had any further alcohol since her last hospitalization, was treated for a presumed UTI, developed diarrhea, and again became weak, increased confusion, and now admitted again. Previously patient refused physical therapy and SNF, though feels he can no longer handle her unless she improves. Palliative care has been consulted, as patient has refused to eat, though given patient's total protein of 4.4 and albumin 1.9, as well as other metabolic abnormalities, suspect her malnutrition has been somewhat long-term. On both admits patient was admitted with increased confusion, she does at baseline have worsening dementia, slurred speech, and presented with a sacral decub and worsening left heel decub as well. I am meeting with to define goals of care, his perception is she is going down hill fast, he wants to be hopeful, but does perceive the window is narrow for any chance of the patient to turn around. He was hoping with her abstinence, and that she would improve. Medical/Surgical History - Past Medical History Cardiovascular: reports: High cholesterol Respiratory: reports: COPD, Emphysema, Pneumonia Neuro: Dementia, Tremors Endocrine/Autoimmune: reports: HyPOthyroidism GI: reports: Other (recent diarrhea) : reports: Incontinence HEENT: reports: Chronic hearing loss Psych: reports: Depression, Anxiety (severe halfway; has been on xanax for 35 yrs) Musculoskeletal: reports: Chronic back pain Derm: reports: None MRSA Hx?: No - Past Surgical History Ortho: reports: Other HEENT: reports: Cataracts - Substance History Use: Uses substance without health or social issues: Tobacco (hx of smoking), Alcohol (recent abstince; previously chronic alcoholism; most recently 1 liter vodka daily) Social History - Living Situation Living arrangement: At home Living Situation: With spouse/s.o. Support System: describes that they live in a small apartment, is somewhat worried if going to attempt end-of-life how much room they are going to need. They have been together 36 years, she has been a chronic alcoholic all the time that she has known him, as well as a severe anxiety disorder. He reports she has become increasingly dependent on him, has been on Xanax 0.5 mg 3 times a day for 3540 years as well as her doxepin. This is been extremely stressful for him, does perceive her quality of life is deteriorating, and feels she is terrified of . Family History - Family History Family History: Mother: ( at 84), Cancer ( at 52 of breast cancer), Father: , Cancer, Sister: Alive and Well (twin sister; sober now), Alcoholism Medications/Allergies - Medications Active Medication List: Active Medications Acetaminophen (Acetaminophen 325 Mg Tablet) 650 mg PO Q4HR PRN PRN Reason: Pain or Fever > 38C (100.4F) Albuterol (Albuterol Neb 2.5 Mg/3 Ml) 2.5 mg INH RTQ4H PRN PRN Reason: Wheezing Albuterol/Ipratropium (Ipratropium/Albuterol 3 Ml Neb) 3 ml INH RTQID [facility] Last Admin: 10/23/20 15:29 Dose: 3 ml Documented by: Alprazolam (Alprazolam 0.25 Mg Tablet) 0.5 mg PO 1200,2200 [facility] Last Admin: 10/23/20 12:10 Dose: 0.5 mg Documented by: Budesonide (Budesonide 0.5 Mg/2 Ml Neb) 0.5 mg INH RTBID [facility] Last Admin: 10/23/20 07:28 Dose: 0.5 mg Documented by: Diphenhydramine HCl (Diphenhydramine 25 Mg Capsule) 25 mg PO QPM PRN PRN Reason: Insomnia Doxepin HCl (Doxepin 25 Mg Capsule) 250 mg PO QPM [facility] Last Admin: 10/22/20 21:12 Dose: Not Given Documented by: Enoxaparin Sodium (Enoxaparin 40 Mg/0.4 Ml Syringe) 40 mg SUBQ DAILY [facility] Last Admin: 10/23/20 10:12 Dose: 40 mg Documented by: Ferrous Sulfate (Ferrous Sulfate 300 Mg/5 Ml Udc) 300 mg PO QDLUNCH [facility] Last Admin: 10/23/20 12:11 Dose: Not Given Documented by: Sodium Chloride (Normal Saline 0.9%) 500 mls @ 20 mls/hr IV Q24H PRN PRN Reason: TKO RATE Potassium Chloride/Dextrose/Sod Cl (D5.45ns W/20 Meq Kcl) 1,000 mls @ 75 mls/hr IV .[id number] [facility] Last Admin: 10/23/20 15:59 Dose: 75 mls/hr Documented by: Lactobacillus Rhamnosus (Lactobacillus Rhamnosus Gg Capsule) 1 cap PO DAILY [facility] Last Admin: 10/23/20 10:12 Dose: 1 cap Documented by: Levothyroxine Sodium (Levothyroxine 100 Mcg Tablet) 100 mcg PO [id number] [facility] Last Admin: 10/23/20 06:02 Dose: 100 mcg Documented by: Metoprolol Succinate (Metoprolol Succinate 25 Mg Tablet) 12.5 mg PO DAILY [facility] Last Admin: 10/23/20 10:12 Dose: 12.5 mg Documented by: Multi-Ingredient Ointment (Zinc Oxide 20% Oint 30 Gm Tube) 1 applic TOP PRN PRN PRN Reason: Skin Care Nystatin (Nystatin Powder 15 Gm) 1 applic TOP BID [facility] Last Admin: 10/23/20 10:13 Dose: 1 applic Documented by: Ondansetron HCl (Ondansetron 4 Mg/2 Ml Vial) 4 mg IVP Q6HR PRN PRN Reason: Nausea / Vomiting Pantoprazole Sodium (Pantoprazole 40 Mg Vial) 40 mg IVP QDAC [facility] Last Admin: 10/23/20 06:02 Dose: 40 mg Documented by: Multivit/Folic Acid/Iron ( Vitamin Tablet) 1 tab PO DAILYWM [facility] Last Admin: 10/23/20 10:12 Dose: 1 tab Documented by: Sodium Chloride (Sodium Chloride Flush 0.9% 10 Ml Syringe) 10 ml IVP PRN PRN PRN Reason: NEEDED PER PROVIDER ORDERS Last Admin: 10/20/20 06:51 Dose: 10 ml Documented by: Sodium Chloride (Sodium Chloride Flush 0.9% 10 Ml Syringe) 10 ml IVP 0100,0900,1700 [facility] Last Admin: 10/23/20 10:13 Dose: 10 ml Documented by: Thiamine HCl (Thiamine 100 Mg Tablet) 100 mg PO DAILY [facility] Last Admin: 10/23/20 10:12 Dose: 100 mg Documented by: Doxepin HCl 250 mg ORAL QPM 04/07/16 lisinopriL [Lisinopril] 5 mg PO DAILY 08/03/18 ALPRAZolam [Alprazolam] 0.5 mg PO TID PRN 10/02/20 Levothyroxine [Synthroid] 100 mcg PO MOTUWETHFRSA 10/02/20 Albuterol Sulf [Ventolin Hfa Inhaler] 2 puffs INH Q6H PRN 10/20/20 - Allergies Allergies/Adverse Reactions: Allergies Allergy/AdvReac Type Severity Reaction Status Date / Time No Known Drug Allergies Allergy Verified 10/19/20 15:17 Review of Systems - Constitutional Constitutional: reports: Fatigue, Poor appetite, Weight stable - Cardiovascular Cardiovascular: reports: Exertional dyspnea (feels she got short of breath with activity and "scared her" so continued to refuse to do more), Decr. 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; new sacral decub with last hospitalization) - Neurological Neurological: reports: General weakness, Memory problems, Seizures, Slurred speech - Psychiatric Psychiatric: reports: Depression, Anxiety, Behavior disturbances - Endocrine Endocrine: reports: Hypothyroidism - Hematologic/Lymphatic Hematologic/Lymph: reports: Anemia - All Other Systems All Other Systems: reports: Other (limited; patient is sleeping and unable to participate) Physical Exam - Vital Signs Vital Signs: Vital Signs x48h Temp Pulse Pulse Resp BP Pulse Ox 10/23/20 15:48 36.5 C 85 16 104/63 99 10/23/20 15:38 90 18 10/23/20 14:00 37.1 C 86 17 105/48 L 99 10/23/20 11:36 94 18 - Physical Exam General Appearance: positive: Lethargic Respiratory: positive: No respiratory distress Skin: positive: Pallor Neurologic/Psychiatric: positive: Weakness, Other (asleep) Palliative Care - POLST Patient has POLST: Yes POLST Status: DNR (reports has POLST at home; unclear what is on it other than DNAR) Performance Status: Has been reports has not had a shower for over 2 months, they did clean her up on Friday, with assistance from BUNCHER OPERATOR. He had been using wipes, but unable to do her hair. He had been monitoring and taking care of her bedsore, as well as her heel. He reports she had done a little better at first, when discharged from the hospital, but then the last few days has continued to deteriorate fairly rapidly. Patient has had fluctuating status while here, has been restarted on her benzodiazepines, hope with goal for mood stabilization. - Palliative Care Discussion: Has been does perceive the seriousness of the patient's current condition, he does perceive her quality of life is deteriorating, particularly over the last few years and more acutely over the last few weeks. Reports his daughter wants to come and "hopes to save her mother". He is struggling with being able to meet her care needs, particularly in her deteriorating state. His hope would be that she could go to a SNF, may be with appetite stimulant start eating, as well as participate in therapy. He feels that if she were in another environment, she will either progress, or deteriorate, but would like to give that a try. We did discuss in the context though if she were not improving, she would not be able to have an extended stay at SNF, Medicare criteria is a focus on progress. He does understand her health is worsening, we discussed it is a combination most likely of her chronic alcoholism, poor nutritional status, functional decline and cognitive decline. Unfortunately she does not present with a obvious "terminal diagnosis". If she is to continue not eat and drink, then it would be days to weeks. He is clear that she has a DN AR, but is struggling with how best to support her in her current state. After much discussion, short-term goals are to try a appetite stimulant, return to her previous level of benzodiazepine use, given her long-term use. To continue with abstinence, recognizing that continued drinking would hasten her , and try for SNF placement with the goal to heal her wounds, improve her nutritional status, and receive therapy to improve her functional status. He does recognize if she continues to not eat and drink, she will continue to deteriorate, and would lead to an end-of-life event. He does not want any artificial support to extend her suffering, and does understand this would mean a transition to comfort care/hospice. Though unfortunately does not present with a hospice appropriate diagnosis or known course at this time Results - Lab Results Lab results reviewed: Yes Fish Bones: 10/23/20 06:01 10/23/20 06:01 Lab and Imaging Results: Lab Results x24hrs 10/23/20 10/23/20 10/23/20 Range/Units 16:46 11:49 08:10 WBC (4.8-10.8) x10^3/uL RBC (4.20-5.40) 10^6/uL Hgb (12.0-16.0) g/dL Hct (37.0-47.0) % MCV (81.0-99.0) fL MCH (27.0-31.0) pg MCHC (32.0-36.0) g/dL RDW (12.0-15.0) % Plt Count (130-450) 10^3/uL MPV (7.9-10.8) fL Neut # (Auto) (1.5-6.6) 10^3/uL Lymph # (Auto) (1.5-3.5) 10^3/uL [place] # (Auto) (0.0-1.0) 10^3/uL Eos # (Auto) (0.0-0.7) 10^3/uL Baso # (Auto) (0.0-0.1) 10^3/uL Absolute Nucleated RBC x10^3/uL Nucleated RBC % /100WBC Sodium (135-145) mmol/L Potassium (3.5-5.0) mmol/L Chloride (101-111) mmol/L Carbon Dioxide (21-32) mmol/L Anion Gap (6-13) BUN (6-20) mg/dL Creatinine (0.4-1.0) mg/dL Estimated GFR (MDRD) (>89) Glucose (70-100) mg/dL POC Whole Bld Glucose 93 103 H 89 (70 - 100) mg/dL Calcium (8.5-10.3) mg/dL 10/23/20 10/23/20 10/22/20 Range/Units 06:01 06:01 21:13 WBC 5.8 (4.8-10.8) x10^3/uL RBC 3.37 L (4.20-5.40) 10^6/uL Hgb 10.5 L (12.0-16.0) g/dL Hct 33.2 L (37.0-47.0) % MCV 98.5 (81.0-99.0) fL MCH 31.2 H (27.0-31.0) pg MCHC 31.6 L (32.0-36.0) g/dL RDW 14.6 (12.0-15.0) % Plt Count 159 (130-450) 10^3/uL MPV 9.9 (7.9-10.8) fL Neut # (Auto) 3.0 (1.5-6.6) 10^3/uL Lymph # (Auto) 2.1 (1.5-3.5) 10^3/uL [place] # (Auto) 0.6 (0.0-1.0) 10^3/uL Eos # (Auto) 0.1 (0.0-0.7) 10^3/uL Baso # (Auto) 0.0 (0.0-0.1) 10^3/uL Absolute Nucleated RBC 0.00 x10^3/uL Nucleated RBC % 0.0 /100WBC Sodium 138 (135-145) mmol/L Potassium 4.0 (3.5-5.0) mmol/L Chloride 107 (101-111) mmol/L Carbon Dioxide 25 (21-32) mmol/L Anion Gap 6.0 (6-13) BUN < 5 L (6-20) mg/dL Creatinine 0.6 (0.4-1.0) mg/dL Estimated GFR (MDRD) 97 (>89) Glucose 98 (70-100) mg/dL POC Whole Bld Glucose 118 H (70 - 100) mg/dL Calcium 7.4 L (8.5-10.3) mg/dL 10/22/20 10/22/20 10/22/20 Range/Units 16:57 11:33 07:51 WBC (4.8-10.8) x10^3/uL RBC (4.20-5.40) 10^6/uL Hgb (12.0-16.0) g/dL Hct (37.0-47.0) % MCV (81.0-99.0) fL MCH (27.0-31.0) pg MCHC (32.0-36.0) g/dL RDW (12.0-15.0) % Plt Count (130-450) 10^3/uL MPV (7.9-10.8) fL Neut # (Auto) (1.5-6.6) 10^3/uL Lymph # (Auto) (1.5-3.5) 10^3/uL [place] # (Auto) (0.0-1.0) 10^3/uL Eos # (Auto) (0.0-0.7) 10^3/uL Baso # (Auto) (0.0-0.1) 10^3/uL Absolute Nucleated RBC x10^3/uL Nucleated RBC % /100WBC Sodium (135-145) mmol/L Potassium (3.5-5.0) mmol/L Chloride (101-111) mmol/L Carbon Dioxide (21-32) mmol/L Anion Gap (6-13) BUN (6-20) mg/dL Creatinine (0.4-1.0) mg/dL Estimated GFR (MDRD) (>89) Glucose (70-100) mg/dL POC Whole Bld Glucose 94 92 82 (70 - 100) mg/dL Calcium (8.5-10.3) mg/dL 10/21/20 10/21/20 10/21/20 Range/Units 20:51 16:43 11:19 WBC (4.8-10.8) x10^3/uL RBC (4.20-5.40) 10^6/uL Hgb (12.0-16.0) g/dL Hct (37.0-47.0) % MCV (81.0-99.0) fL MCH (27.0-31.0) pg MCHC (32.0-36.0) g/dL RDW (12.0-15.0) % Plt Count (130-450) 10^3/uL MPV (7.9-10.8) fL Neut # (Auto) (1.5-6.6) 10^3/uL Lymph # (Auto) (1.5-3.5) 10^3/uL [place] # (Auto) (0.0-1.0) 10^3/uL Eos # (Auto) (0.0-0.7) 10^3/uL Baso # (Auto) (0.0-0.1) 10^3/uL Absolute Nucleated RBC x10^3/uL Nucleated RBC % /100WBC Sodium (135-145) mmol/L Potassium (3.5-5.0) mmol/L Chloride (101-111) mmol/L Carbon Dioxide (21-32) mmol/L Anion Gap (6-13) BUN (6-20) mg/dL Creatinine (0.4-1.0) mg/dL Estimated GFR (MDRD) (>89) Glucose (70-100) mg/dL POC Whole Bld Glucose 82 110 H 91 (70 - 100) mg/dL Calcium (8.5-10.3) mg/dL 10/21/20 10/20/20 10/20/20 Range/Units 07:30 21:11 17:54 WBC (4.8-10.8) x10^3/uL RBC (4.20-5.40) 10^6/uL Hgb (12.0-16.0) g/dL Hct (37.0-47.0) % MCV (81.0-99.0) fL MCH (27.0-31.0) pg MCHC (32.0-36.0) g/dL RDW (12.0-15.0) % Plt Count (130-450) 10^3/uL MPV (7.9-10.8) fL Neut # (Auto) (1.5-6.6) 10^3/uL Lymph # (Auto) (1.5-3.5) 10^3/uL [place] # (Auto) (0.0-1.0) 10^3/uL Eos # (Auto) (0.0-0.7) 10^3/uL Baso # (Auto) (0.0-0.1) 10^3/uL Absolute Nucleated RBC x10^3/uL Nucleated RBC % /100WBC Sodium (135-145) mmol/L Potassium (3.5-5.0) mmol/L Chloride (101-111) mmol/L Carbon Dioxide (21-32) mmol/L Anion Gap (6-13) BUN (6-20) mg/dL Creatinine (0.4-1.0) mg/dL Estimated GFR (MDRD) (>89) Glucose (70-100) mg/dL POC Whole Bld Glucose 133 H 105 H 89 (70 - 100) mg/dL Calcium (8.5-10.3) mg/dL 10/20/20 10/20/20 10/20/20 Range/Units 11:23 07:20 03:06 WBC (4.8-10.8) x10^3/uL RBC (4.20-5.40) 10^6/uL Hgb (12.0-16.0) g/dL Hct (37.0-47.0) % MCV (81.0-99.0) fL MCH (27.0-31.0) pg MCHC (32.0-36.0) g/dL RDW (12.0-15.0) % Plt Count (130-450) 10^3/uL MPV (7.9-10.8) fL Neut # (Auto) (1.5-6.6) 10^3/uL Lymph # (Auto) (1.5-3.5) 10^3/uL [place] # (Auto) (0.0-1.0) 10^3/uL Eos # (Auto) (0.0-0.7) 10^3/uL Baso # (Auto) (0.0-0.1) 10^3/uL Absolute Nucleated RBC x10^3/uL Nucleated RBC % /100WBC Sodium (135-145) mmol/L Potassium (3.5-5.0) mmol/L Chloride (101-111) mmol/L Carbon Dioxide (21-32) mmol/L Anion Gap (6-13) BUN (6-20) mg/dL Creatinine (0.4-1.0) mg/dL Estimated GFR (MDRD) (>89) Glucose (70-100) mg/dL POC Whole Bld Glucose 74 95 107 H (70 - 100) mg/dL Calcium (8.5-10.3) mg/dL 10/19/20 10/19/20 10/19/20 Range/Units 23:35 23:03 22:32 WBC (4.8-10.8) x10^3/uL RBC (4.20-5.40) 10^6/uL Hgb (12.0-16.0) g/dL Hct (37.0-47.0) % MCV (81.0-99.0) fL MCH (27.0-31.0) pg MCHC (32.0-36.0) g/dL RDW (12.0-15.0) % Plt Count (130-450) 10^3/uL MPV (7.9-10.8) fL Neut # (Auto) (1.5-6.6) 10^3/uL Lymph # (Auto) (1.5-3.5) 10^3/uL [place] # (Auto) (0.0-1.0) 10^3/uL Eos # (Auto) (0.0-0.7) 10^3/uL Baso # (Auto) (0.0-0.1) 10^3/uL Absolute Nucleated RBC x10^3/uL Nucleated RBC % /100WBC Sodium (135-145) mmol/L Potassium (3.5-5.0) mmol/L Chloride (101-111) mmol/L Carbon Dioxide (21-32) mmol/L Anion Gap (6-13) BUN (6-20) mg/dL Creatinine (0.4-1.0) mg/dL Estimated GFR (MDRD) (>89) Glucose (70-100) mg/dL POC Whole Bld Glucose 76 72 54 L* (70 - 100) mg/dL Calcium (8.5-10.3) mg/dL 10/19/20 Range/Units 16:47 WBC (4.8-10.8) x10^3/uL RBC (4.20-5.40) 10^6/uL Hgb (12.0-16.0) g/dL Hct (37.0-47.0) % MCV (81.0-99.0) fL MCH (27.0-31.0) pg MCHC (32.0-36.0) g/dL RDW (12.0-15.0) % Plt Count (130-450) 10^3/uL MPV (7.9-10.8) fL Neut # (Auto) (1.5-6.6) 10^3/uL Lymph # (Auto) (1.5-3.5) 10^3/uL [place] # (Auto) (0.0-1.0) 10^3/uL Eos # (Auto) (0.0-0.7) 10^3/uL Baso # (Auto) (0.0-0.1) 10^3/uL Absolute Nucleated RBC x10^3/uL Nucleated RBC % /100WBC Sodium (135-145) mmol/L Potassium (3.5-5.0) mmol/L Chloride (101-111) mmol/L Carbon Dioxide (21-32) mmol/L Anion Gap (6-13) BUN (6-20) mg/dL Creatinine (0.4-1.0) mg/dL Estimated GFR (MDRD) (>89) Glucose (70-100) mg/dL POC Whole Bld Glucose 62 L (70 - 100) mg/dL Calcium (8.5-10.3) mg/dL Impression and Recommendations - Palliative Care Impression: This is a 80-year-old woman who presents is failure to thrive, related to her chronic alcoholism, malnutrition, long-term underlying anxiety disorder and benzodiazepine use, she has both functional and cognitive decline, as well as now presents as not eating/anorexia. Is unclear if this is behavioral, or exacerbated symptom of her current status. Palliative care meeting with to help establish goals of care, this is complex in the context of patient frailty and underlying psycosocial situatlion. Recommendations/Counseling Done: 1. Benzodiazepine dependence. Would recommend given patient's long-term use, and high risk for withdrawal symptoms, to continue baseline dosing. Can look in the outpatient setting, of a reasonable titration, as we will need to go very slow given her history of alcoholism as well as long-term use. 2. Failure to thrive. This is multifactorial, in the context of her chronic alcoholism, protein calorie malnutrition, declining functional and cognitive status, and now refusal/failure to eat. would like to trial appetite stimulant, would recommend dexamethasone 2 mg in the a.m. for more immediate results and to bridge to mirtazipine, for at least 5 days, while initiating mirtazapine 7.5 mg at bedtime, for 1 week then increase to 15 mg. Continue to work with dietary for foods and fluids that appeal to patient. Patient's does understand if patient continues to not eat and drink, she would have an expected ongoing decline, and survival of weeks. 3. Caregiver fatigue. is fairly maxed out, has continue to provide support here in the hospital. Is hoping for SNF stay, to see if patient would respond in a different environment versus home. He is working with Senior services to increase support, daughter may be able to come up and spell him and provide support if short-term or to bridge care if transitioning to hospice. 4. Advanced care planning. Has been does perceive patient's quality of life is deteriorating, patient herself unable to participate in decision-making, and fortunately she is sleeping to visit. Did have long discussion with , set short-term goals for possible SNF placement, though is aware unless she starts participating, may not be a candidate, though she does have need for wound care and this does translate to skilled care. Other option is to discha rgdylan with home health, though his suspect that she will continue to deteriorate, but if she were to start eating and drinking this would be a reasonable short- term plan. Counseling also provided regarding the hospice and hospice benefit, did staff patient with hospice medical lab tech instructor, unfortunately patient does not have weight loss, though she does present with failure to thrive, does not present with a Medicare appropriate terminal diagnosis, but we will continue to watch over the next couple days, and reevaluate if patient continues to deteriorate. 50% of this done in counseling with family meeting, coordination of care with hospitalist and hospital team, will follow up tomorrow and try engage patient in goals of care conversation for further evaluation for appropriateness for SNF transition.
--- NOTE | 2020-10-23 18:39 | PROVIDER PROGRESS NOTE ---
Assessment/Plan - Problem List (1) Altered mental status Assessment/Plan: At admission she was obtunded. We felt this froze from excess Xanax use. Yesterday the said that the patient was on 2.5 L oxygen at home continuously. Here she has good oxygen saturations on 1L O2 per n.c. This suggests that she may have had CO2 narcosis at home from excessive supplemental oxygen and high O2 sats, causing no respiratory hypoxic drive to ventilate in a COPDer. For the last 2 days she has been more and more awake but also more agitated and overnight she had a seizure. The Engine Turner saw the patient and the was at bedside and said she has had 2 prior seizures, both from Xanax withdrawal. We therefore need to use Xanax at a dose that does not cause oversedation but also treats her anxiety and prevent seizures. I told the this. We will dose the Xanax, not use it as needed. Will give Xanax at noon and at bedtime. As of her agitation, she did not participate in PT today or yesterday. (2) COPD (chronic obstructive pulmonary disease) Assessment/Plan: When she was agitated yesterday which I witnessed. She was also tripoding and breathing through pursed lips. Her inhalers have been ordered to use as nebs here. Yesterday the said that the patient was on 2.5 L oxygen at home continuously. Here she has good oxygen saturations on 1L O2 per n.c. This suggests that she may have had CO2 narcosis at home from excessive supplemental oxygen and high O2 sats, causing no respiratory hypoxic drive to ventilate in a COPDer. (3) Anorexia Assessment/Plan: I spent 30 min in her room during the lunch hour, watching her refuse to take anything by mouth: juice, a milk shake, Ensure, mashed potatoes. The realizes that she is "shutting down". He does not want her to get a feeding tube. He said he understands this may be leading to Comfort Care then Hospice. Today the questioned if she is a candidate for an appetite stimulant medication. Today Palliative Care consult was done regarding possible end of life management, he asked Jessica the same question about diet stimulant. Jessica Reyes NP advised that we first try the route of giving her medications to stimulate her diet which I will order: Decadron 2 mg p.o. daily for 5 days, and Mirtazapine 7.5 mg orally at at bedtime for 1 week and then 15 mg orally at at bedtime (4) Malnutrition Assessment/Plan: She refuses to eat, despite urging from the staff and her . Dietary did their nutrition consult. KERMIT Gaines, agreed with de-escalating from a Reg diet to soft to pureed. We have resumed her Iron replacement (in liquid form) and also started Thiamine, vitamins and Zinc, as per Nutrition. Ensure was added with meal trays. By not take a diet orally, and the told me today he does not want her to get a feeding tube, he thought she was "shutting down". Palliative Care consult to be done today regarding this. (5) History of alcohol abuse Assessment/Plan: The gave me details of her past history: She used to drink beer for many years then switched to being a wine drinker every day and most recently was drinking a bottle of vodka a day. She was already bed-ridden, so he brought her vodka in mixed drinks, because it "relaxed her because she had alot of anxiety", and "the vodka was mixed with either orange juice or tomato juice for the calories and electrolytes", he said. At the last admission, she may have gone through alcohol withdrawal. When she got home 2 weeks ago, she did stop drinking alcohol daily, and he no longer made her any alcoholic drinks whatsoever. The head CT showed brain atrophy. The cognitive eval done 3 weeks ago scored 22/30, consistent with mild-moderate dementia. Her intentional tremor and garbled speech suggest that she has effects of alcohol-induced dementia or Wernicke's encephalopathy. She is getting daily Thiamine replacement here. (6) Anxiety Assessment/Plan: Reported that "she has anxiety" and that is why she has been on Doxepin for many years as well as Xanax. (7) Dementia Assessment/Plan: She carries this Dx in her chart. Unknown if this is Wernicke's Encephalopathy, from years of alcohol abuse, or Alzheimers. At the last admission, a cognitive eval was done by OT, and she scored 22/30, which equates to mild-moderate dementia. She cannot make her own decisions therefore. She should not have decided if she gets Home Health service or not, since "she refused the Home Health RN" when it was arranged for the house, at the last admission. I have told the repeatedly, that she cannot make decisions about her care, he must take responsibility to make sound decisions. The is allowed to stay in the room with her; she is more amenable to turning and nursing care when she is with him. (8) Anemia Qualifiers: Anemia type: iron deficiency Assessment/Plan: Oral iron replacement therapy has been ordered. (9) Sacral decubitus ulcer Assessment/Plan: The reported that she lays supine when sleeping and has not walked in about a week and a half. She did have diarrhea, and Culturelle has been ordered to prevent further anti- biotic associated diarrhea. The apparently turned away the Home Health people, who had been arranged after the last admission, 2 weeks ago, and said it is because "she did not want the help of strangers". SW was informed. She cannot make sound medical decisions any longer, I told the that repeatedly. The pt needs long term care and is a candidate for SNF for wound management, since the performed what he could and "she refused" a Home Health RN. He told me that he cannot take her home and do all that care for her any longer. Ointment ordered to area of skin breakdown. (10) Decubitus ulcer, heel, left, unstageable Assessment/Plan: The gave me complete history on this: She has had this for about a year, she was seeing her PCP about it, it started as a blood blister, it scabbed over and the scab fell off and all that was left was a tiny pinpoint but deep ulcer. It is most recently started to turn red again since her heels have constant contact with the bed or recliner. Topical wound care ordered and elevate the leg with a pillow. (11) HTN (hypertension) Assessment/Plan: She was on Lisinopril 5 mg daily at home. It was stopped, since she had a "soft" BP from having inadequate oral intake. Yesterday BP jess to 150's and HR is 107. We started low dose B-1 selective B-kyleigh in a COPDer, using Toprol, for BP and HR control. (12) Hypothyroidism Assessment/Plan: She does swallow her morning meds, one of which is Synthroid. The TSH was checked at the last recent admission 2 weeks ago, and was low at 0.14, but the free T4 was normal at 1.3. Continue present dose. (13) Hypokalemia Assessment/Plan: Resolved with IV potassium in her maintenance fluid and many days of many K riders given IV. Follow BMP mdaily. - Current Meds Current Meds: Current Medications Generic Name Dose Route Start Last Admin Trade Name Cynthia PRN Reason Stop Dose Admin Albuterol/Ipratropium 3 ml 10/20/20 15:00 10/23/20 15:29 Ipratropium/Albuterol 3 Ml Neb INH 3 ml RTQID NARDA Administration Alprazolam 0.5 mg 10/22/20 22:00 10/23/20 12:10 Alprazolam 0.25 Mg Tablet PO 0.5 mg 1200,2200 NARDA Administration Budesonide 0.5 mg 10/22/20 19:00 10/23/20 07:28 Budesonide 0.5 Mg/2 Ml Neb INH 0.5 mg RTBID NARDA Administration Doxepin HCl 250 mg 10/20/20 21:00 10/22/20 21:12 Doxepin 25 Mg Capsule PO Not Given QPM NARDA Enoxaparin Sodium 40 mg 10/20/20 09:00 10/23/20 10:12 Enoxaparin 40 Mg/0.4 Ml Syringe SUBQ 40 mg DAILY NARDA Administration Ferrous Sulfate 300 mg 10/21/20 12:00 10/23/20 12:11 Ferrous Sulfate 300 Mg/5 Ml Udc PO Not Given QDLUNCH NARDA Potassium Chloride/Dextrose/Sod Cl 1,000 mls @ 75 mls/hr 10/19/20 23:00 10/23/20 15:59 D5.45ns W/20 Meq Kcl IV 75 mls/hr .[id number] NARDA Administration Lactobacillus Rhamnosus 1 cap 10/20/20 09:00 10/23/20 10:12 Lactobacillus Rhamnosus Gg Capsule PO 1 cap DAILY NARDA Administration Levothyroxine Sodium 100 mcg 10/21/20 07:00 10/23/20 06:02 Levothyroxine 100 Mcg Tablet PO 100 mcg [id number] NARDA Administration Metoprolol Succinate 12.5 mg 10/22/20 10:00 10/23/20 10:12 Metoprolol Succinate 25 Mg Tablet PO 12.5 mg DAILY NARDA Administration Nystatin 1 applic 10/19/20 21:00 10/23/20 10:13 Nystatin Powder 15 Gm TOP 1 applic BID NARDA Administration Pantoprazole Sodium 40 mg 10/20/20 07:00 10/23/20 06:02 Pantoprazole 40 Mg Vial IVP 40 mg QDAC NARDA Administration Multivit/Folic Acid/Iron 1 tab 10/21/20 08:00 10/23/20 10:12 Vitamin Tablet PO 1 tab DAILYWM NARDA Administration Sodium Chloride 10 ml 10/19/20 20:02 10/20/20 06:51 Sodium Chloride Flush 0.9% 10 Ml Syringe IVP 10 ml PRN PRN Administration NEEDED PER PROVIDER ORDERS Sodium Chloride 10 ml 10/20/20 01:00 10/23/20 10:13 Sodium Chloride Flush 0.9% 10 Ml Syringe IVP 10 ml 0100,0900,1700 NARDA Administration Thiamine HCl 100 mg 10/21/20 09:00 10/23/20 10:12 Thiamine 100 Mg Tablet PO 100 mg DAILY NARDA Administration - Lab Result Fish Bone Diagrams: 10/23/20 06:01 10/23/20 06:01 - Additional Planning My Orders: My Active Orders 10/22/20 19:00 Budesonide [Pulmicort] 0.5 mg INH RTBID 10/22/20 22:00 ALPRAZolam [Xanax] 0.5 mg PO 1200,2200 Subjective - Subjective Nursing Reports: Other (She is trying to climb out of bed by inching her way toward the bottom of the mattress. She is screaming when rolled. he speech is garbled.) Objective Vital Signs: Vital Signs - 24 hr 10/22/20 10/23/20 10/23/20 20:10 01:11 07:29 Temperature 36.4 C L Heart Rate 90 Heart Rate [ 86 Brachial] Respiratory 18 18 Rate Blood Pressure 130/71 101/51 L [Left Brachial artery] O2 Saturation 100 95 10/23/20 10/23/20 10/23/20 11:36 14:00 15:38 Temperature 37.1 C Heart Rate 94 90 Heart Rate [ 86 Brachial] Respiratory 18 17 18 Rate Blood Pressure 105/48 L [Left Brachial artery] O2 Saturation 99 03/01/21 15:48 Temperature 36.5 C Heart Rate Heart Rate [ 85 Brachial] Respiratory 16 Rate Blood Pressure 104/63 [Left Brachial artery] O2 Saturation 99 Oxygen O2 Source Room air I&O (Last 24 Hrs): Intake and Output Totals x24h 10/21/20 10/22/20 10/23/20 23:59 23:59 23:59 Intake Total 1999 8948.330 9262 Output Total 500 Balance 1500 2604.135 2615 General: Other (Awake, agitated, she is disoriented to place and time.) HEENT: Other (Dry mucosa, poor dentition.) Neck: Supple Neuro: Disoriented Cardiovascular: Regular rate Respiratory: Wheezes Abdomen: Soft Extremities: No edema - Results Results: Laboratory Results WBC 5.8 x10^3/uL (4.8-10.8) 10/23/20 06:01 RBC 3.37 10^6/uL (4.20-5.40) L 10/23/20 06:01 Hgb 10.5 g/dL (12.0-16.0) L 10/23/20 06:01 Hct 33.2 % (37.0-47.0) L 10/23/20 06:01 MCV 98.5 fL (81.0-99.0) 10/23/20 06:01 MCH 31.2 pg (27.0-31.0) H 10/23/20 06:01 MCHC 31.6 g/dL (32.0-36.0) L 10/23/20 06:01 RDW 14.6 % (12.0-15.0) 10/23/20 06:01 Plt Count 159 10^3/uL (130-450) 10/23/20 06:01 MPV 9.9 fL (7.9-10.8) 10/23/20 06:01 Neut # (Auto) 3.0 10^3/uL (1.5-6.6) 10/23/20 06:01 Lymph # (Auto) 2.1 10^3/uL (1.5-3.5) 10/23/20 06:01 [place] # (Auto) 0.6 10^3/uL (0.0-1.0) 10/23/20 06:01 Eos # (Auto) 0.1 10^3/uL (0.0-0.7) 10/23/20 06:01 Baso # (Auto) 0.0 10^3/uL (0.0-0.1) 10/23/20 06:01 Absolute Nucleated RBC 0.00 x10^3/uL 10/23/20 06:01 Nucleated RBC % 0.0 /100WBC 10/23/20 06:01 VBG pH 7.344 (7.31-7.41) 10/19/20 18:27 VBG pCO2 41.4 mmHg (41-51) 10/19/20 18: VBG pO2 30.5 mmHg (25-47) 10/19/20 18: VBG HCO3 22.0 mmol/L (23-28) L 10/19/20 18: VBG Total CO2 23.3 mmol/L (24-29) L 10/19/20 18: VBG O2 Saturation 51.5 % (60-80) L 10/19/20 18: VBG Base Excess -3.4 mmol/L (-2 - +2) L 10/19/20 18: Sodium 138 mmol/L (135-145) 10/23/20 06:01 Potassium 4.0 mmol/L (3.5-5.0) 10/23/20 06:01 Chloride 107 mmol/L (101-111) 10/23/20 06:01 Carbon Dioxide 25 mmol/L (21-32) 10/23/20 06:01 Anion Gap 6.0 (6-13) 10/23/20 06:01 BUN < 5 mg/dL (6-20) L 10/23/20 06:01 Creatinine 0.6 mg/dL (0.4-1.0) 10/23/20 06:01 Estimated GFR (MDRD) 97 (>89) 10/23/20 06:01 Glucose 98 mg/dL (70-100) 10/23/20 06:01 POC Whole Bld Glucose 93 mg/dL (70 - 100) 10/23/20 16:46 Lactic Acid 1.0 mmol/L (0.5-2.2) 10/19/20 16:23 Calcium 7.4 mg/dL (8.5-10.3) L 10/23/20 06:01 Magnesium 1.9 mg/dL (1.7-2.8) 10/22/20 04:58 Total Bilirubin 0.4 mg/dL (0.2-1.0) 10/22/20 04:58 Direct Bilirubin 0.2 mg/dL (0.1-0.5) 10/22/20 04:58 AST 30 IU/L (10-42) 10/22/20 04:58 ALT 21 IU/L (10-60) 10/22/20 04:58 Alkaline Phosphatase 109 IU/L (42-121) 10/22/20 04:58 Ammonia < 10.0 umol/L (7-35) 10/22/20 04:58 Total Protein 4.4 g/dL (6.7-8.2) L 10/22/20 04:58 Albumin 1.9 g/dL (3.2-5.5) L 10/22/20 04:58 Globulin 2.5 g/dL (2.1-4.2) 10/22/20 04:58 Albumin/Globulin Ratio 0.9 (1.0-2.2) L 10/19/20 16:23 Lipase 14 U/L (22-51) L 10/19/20 16:23 TSH 0.14 uIU/mL (0.34-5.60) L 10/20/20 05:12 Free T4 1.30 ng/dL (0.58-1.64) 10/20/20 07:56 Urine Color YELLOW 10/19/20 14:35 Urine Clarity CLEAR (CLEAR) 10/19/20 14:35 Urine pH 6.0 PH (5.0-7.5) 10/19/20 14:35 Ur Specific [place] 1.025 (1.002-1.030) 10/19/20 14:35 Urine Protein NEGATIVE mg/dL (NEGATIVE) 10/19/20 14:35 Urine Glucose (UA) NEGATIVE mg/dL (NEGATIVE) 10/19/20 14:35 Urine Ketones >=80 mg/dL (NEGATIVE) H 10/19/20 14:35 Urine Occult Blood NEGATIVE (NEGATIVE) 10/19/20 14:35 Urine Nitrite NEGATIVE (NEGATIVE) 10/19/20 14:35 Urine Bilirubin NEGATIVE (NEGATIVE) 10/19/20 14:35 Urine Urobilinogen 0.2 (NORMAL) E.U./dL (NORMAL) 10/19/20 14:35 Ur Leukocyte Esterase NEGATIVE (NEGATIVE) 10/19/20 14:35 Ur Microscopic Review NOT INDICATED 10/19/20 14:35 Urine Culture Comments NOT INDICATED 10/19/20 14:35 Nasal Adenovirus (PCR) NOT DETECTED 10/19/20 17:00 Nasal B. parapertussis DNA (PCR) NOT DETECTED 10/19/20 17:00 Nasal Coronavir 229E PCR NOT DETECTED 10/19/20 17:00 Nasal Coronavir HKU1 PCR NOT DETECTED 10/19/20 17:00 Nasal Coronavir NL63 PCR NOT DETECTED 10/19/20 17:00 Nasal Coronavir OC43 PCR NOT DETECTED 10/19/20 17:00 Nasal Enterovir/Rhinovir PCR NOT DETECTED 10/19/20 17:00 Nasal Influenza B PCR NOT DETECTED 10/19/20 17:00 Nasal Influenza A PCR NOT DETECTED 10/19/20 17:00 Nasal Parainfluen 1 PCR NOT DETECTED 10/19/20 17:00 Nasal Parainfluen 2 PCR NOT DETECTED 10/19/20 17:00 Nasal Parainfluen 3 PCR NOT DETECTED 10/19/20 17:00 Nasal Parainfluen 4 PCR NOT DETECTED 10/19/20 17:00 Nasal RSV (PCR) NOT DETECTED 10/19/20 17:00 Nasal B.pertussis DNA PCR NOT DETECTED 10/19/20 17:00 Nasal C.pneumoniae (PCR) NOT DETECTED 10/19/20 17:00 Marcel[place] Human Metapneumo PCR NOT DETECTED 10/19/20 17:00 Nasal M.pneumoniae (PCR) NOT DETECTED 10/19/20 17:00 Nasal SARS-CoV-2 (PCR) NOT DETECTED 10/19/20 17:00 Ethyl Alcohol < 5.0 mg/dL 10/19/20 16:23 Serum Ketones SMALL (NEGATIVE) H 10/19/20 16:23
[2020-10-23] MEDS: MIRTAZAPINE 15 MG TABLET PO SCH (22:11)
[2020-10-23] MEDS: dexAMETHasone 4 MG TABLET PO SCH (22:13)
[2020-10-23] MEDS: DOXEPIN 25 MG CAPSULE PO SCH (22:14)
[2020-10-24] MEDS: SODIUM CHLORIDE FLUSH 0.9% 10 ML SYRINGE IVP SCH ×3 (02:25→21:55)
[2020-10-24] MEDS: D5.45NS W/20 MEQ KCL 1,000 ML IV SCH ×2 (04:51→17:44)
[2020-10-24 05:35] LABS: BASOPHILS % (AUTO) 0.4 %; EOSINOPHILS % (AUTO) 0.6 %; HCT - HEMATOCRIT 32.3 % (37.0-47.0); HGB - HEMOGLOBIN 9.8 g/dL (12.0-16.0); LYMPHOCYTES # (AUTO) 1.1 10^3/uL (1.5-3.5); LYMPHOCYTES % (AUTO) 22.5 %; MEAN CORPUSCULAR HEMOGLOBIN 31.2 pg (27.0-31.0); MEAN CORPUSCULAR HGB CONC 30.3 g/dL (32.0-36.0); MEAN CORPUSCULAR VOLUME 102.9 fL (81.0-99.0); MEAN PLATELET VOLUME 9.6 fL (7.9-10.8); MONOCYTES # (AUTO) 0.2 10^3/uL (0.0-1.0); MONOCYTES % (AUTO) 4.9 %; NEUTROPHILS # (AUTO) 3.5 10^3/uL (1.5-6.6); NEUTROPHILS % (AUTO) 70.6 %; PLT - PLATELET COUNT 180 10^3/uL (130-450); RED BLOOD COUNT 3.14 10^6/uL (4.20-5.40); RED CELL DISTRIBUTION WIDTH 14.8 % (12.0-15.0); WHITE BLOOD COUNT 4.9 x10^3/uL (4.8-10.8)
[2020-10-24 05:45] LABS: CALCIUM 7.7 mg/dL (8.5-10.3); CREATININE 0.6 mg/dL (0.4-1.0); POTASSIUM 4.5 mmol/L (3.5-5.0)
[2020-10-24] MEDS: PANTOPRAZOLE 40 MG VIAL IVP SCH (06:07)
[2020-10-24] MEDS: LEVOTHYROXINE 100 MCG TABLET PO SCH (06:07)
[2020-10-24] MEDS: SODIUM CHLORIDE FLUSH 0.9% 10 ML SYRINGE IVP PRN (06:08)
[2020-10-24] MEDS: ZINC OXIDE 20% OINT 30 GM TUBE TOP PRN (06:08)
[2020-10-24] MEDS: BUDESONIDE 0.5 MG/2 ML NEB INH SCH ×2 (07:30→21:16)
[2020-10-24] MEDS: IPRATROPIUM/ALBUTEROL 3 ML NEB INH SCH ×4 (07:30→21:16)
[2020-10-24] MEDS: LACTOBACILLUS RHAMNOSUS GG CAPSULE PO SCH (08:28)
[2020-10-24] MEDS: METOPROLOL SUCCINATE 25 MG TABLET PO SCH (08:28)
[2020-10-24] MEDS: THIAMINE 100 MG TABLET PO SCH (08:29)
[2020-10-24] MEDS: dexAMETHasone 4 MG TABLET PO SCH (08:29)
[2020-10-24] MEDS: PRENATAL VITAMIN TABLET PO SCH (08:30)
[2020-10-24] MEDS: ENOXAPARIN 40 MG/0.4 ML SYRINGE SUBQ SCH (08:30)
[2020-10-24] MEDS: NYSTATIN POWDER 15 GM TOP SCH ×2 (08:31→21:56)
--- NOTE | 2020-10-24 12:00 | CONSULTATION NOTE ---
Palliative Care Follow Up - Referral Referring Provider: Erlinda Hankins MD Time of Visit: 07-06 Referral setting: Hospitalized patient Referral Reason: Dementia/Anxiety/Anorexia - Information Sources Records reviewed: RN notes reviewed, Previous records reviewed History/Review of Systems obtained from: Patient, Family ( has been at bedside) Exam limitations: Clinical condition (patient awake with garbled speech, unable to engage in exam) - History of Present Illness Update Brief HPI Update: This is a 80-year-old woman who presents is failure to thrive, has been not had ongoing deterioration with functional and cognitive decline, attributed to her chronic alcoholism, underlying COPD/emphysema, protein calorie malnutrition, and underlying anxiety disorder. Patient was seen yesterday by palliative care, with discussion around goals of care, has been has been struggling with how best to support her, recognizing that she has been doing poorly, and continues to not eat, exhibits anxiety and unable to follow cues, and concern for patient to return to any previous level of functioning. Patient currently awake, her speech is garbled, she is unable to follow any kind of cues. She does appear to be having hallucinations, reports does recognize him, but has not had any meaningful conversation either. In the meantime her daughter Valeria in [place], has made the decision to come up and help with caregiving, at least for the short-term. He is deferring to her as far as goals of care in considering transition to hospice, though reports she is no longer going to "save the day", but help evaluate and get him established as far as seeing how she transitions home. We did discuss in the context of prognosis, that hospice is usually 6 months or less, patient has been on a downward spiral for several months and more acutely weeks with two hospitalizations. He is hopeful she will improve, though does admit to if being realistic without great expectations. He had been feeling somewhat overwhelmed, is feeling with help for transition home can better manage, and see how patient responds. F Past Medical History: Chronic alcoholism, hyper cholesteremia, COPD, emphysema, dementia, tremors, hypothyroidism, incontinence, chronic hearing loss, depression, anxiety; severe long-term has been on Xanax for 35 years;, chronic back pain, Social History - Living Situation Living arrangement: At home Living Situation: With spouse/s.o. Support System: describes that they live in a small apartment, is somewhat worried if going to attempt end-of-life how much room they are going to need. They have been together 36 years, she has been a chronic alcoholic all the time that she has known him, as well as a severe anxiety disorder. He reports she has become increasingly dependent on him, has been on Xanax 0.5 mg 3 times a day for 35-40 years as well as her doxepin. This is been extremely stressful for him, does perceive her quality of life is deteriorating, and feels she is terrified of . Daughter Valeria, who has caregiving experience will be coming up tonight to help with transition home. Feels she will be able to help him with her, and see if she can improve or at least help with decision making regarding how best to pr oceed. Medications/Allergies - Medications Active Medication List: Active Medications Acetaminophen (Acetaminophen 325 Mg Tablet) 650 mg PO Q4HR PRN PRN Reason: Pain or Fever > 38C (100.4F) Albuterol (Albuterol Neb 2.5 Mg/3 Ml) 2.5 mg INH RTQ4H PRN PRN Reason: Wheezing Albuterol/Ipratropium (Ipratropium/Albuterol 3 Ml Neb) 3 ml INH RTQID [facility] Last Admin: 10/24/20 07:30 Dose: 3 ml Documented by: Alprazolam (Alprazolam 0.25 Mg Tablet) 0.5 mg PO 1200,2200 [facility] Last Admin: 10/23/20 22:13 Dose: 0.5 mg Documented by: Budesonide (Budesonide 0.5 Mg/2 Ml Neb) 0.5 mg INH RTBID [facility] Last Admin: 10/24/20 07:30 Dose: 0.5 mg Documented by: Dexamethasone (Dexamethasone 4 Mg Tablet) 2 mg PO DAILY [facility] Stop: 10/27/20 22:55 Last Admin: 10/24/20 08:29 Dose: 2 mg Documented by: Diphenhydramine HCl (Diphenhydramine 25 Mg Capsule) 25 mg PO QPM PRN PRN Reason: Insomnia Doxepin HCl (Doxepin 25 Mg Capsule) 250 mg PO QPM [facility] Last Admin: 10/23/20 22:14 Dose: 250 mg Documented by: Enoxaparin Sodium (Enoxaparin 40 Mg/0.4 Ml Syringe) 40 mg SUBQ DAILY [facility] Last Admin: 10/24/20 08:30 Dose: 40 mg Documented by: Ferrous Sulfate (Ferrous Sulfate 300 Mg/5 Ml Udc) 300 mg PO QDLUNCH [facility] Last Admin: 10/23/20 12:11 Dose: Not Given Documented by: Sodium Chloride (Normal Saline 0.9%) 500 mls @ 20 mls/hr IV Q24H PRN PRN Reason: TKO RATE Potassium Chloride/Dextrose/Sod Cl (D5.45ns W/20 Meq Kcl) 1,000 mls @ 75 mls/hr IV .[id number] [facility] Last Admin: 10/24/20 04:51 Dose: 75 mls/hr Documented by: Lactobacillus Rhamnosus (Lactobacillus Rhamnosus Gg Capsule) 1 cap PO DAILY [facility] Last Admin: 10/24/20 08:28 Dose: 1 cap Documented by: Levothyroxine Sodium (Levothyroxine 100 Mcg Tablet) 100 mcg PO [id number]@0700 [facility] Last Admin: 10/24/20 06:07 Dose: 100 mcg Documented by: Metoprolol Succinate (Metoprolol Succinate 25 Mg Tablet) 12.5 mg PO DAILY [facility] Last Admin: 10/24/20 08:28 Dose: 12.5 mg Documented by: Mirtazapine (Mirtazapine 15 Mg Tablet) 7.5 mg PO QPM [facility] Stop: 10/29/20 23:55 Last Admin: 10/23/20 22:11 Dose: 7.5 mg Documented by: Multi-Ingredient Ointment (Zinc Oxide 20% Oint 30 Gm Tube) 1 applic TOP PRN PRN PRN Reason: Skin Care Last Admin: 10/24/20 06:08 Dose: 1 applic Documented by: Nystatin (Nystatin Powder 15 Gm) 1 applic TOP BID [facility] Last Admin: 10/24/20 08:31 Dose: 1 applic Documented by: Ondansetron HCl (Ondansetron 4 Mg/2 Ml Vial) 4 mg IVP Q6HR PRN PRN Reason: Nausea / Vomiting Pantoprazole Sodium (Pantoprazole 40 Mg Vial) 40 mg IVP QDAC [facility] Last Admin: 10/24/20 06:07 Dose: 40 mg Documented by: Multivit/Folic Acid/Iron ( Vitamin Tablet) 1 tab PO DAILYWM [facility] Last Admin: 10/24/20 08:30 Dose: 1 tab Documented by: Sodium Chloride (Sodium Chloride Flush 0.9% 10 Ml Syringe) 10 ml IVP PRN PRN PRN Reason: NEEDED PER PROVIDER ORDERS Last Admin: 10/24/20 06:08 Dose: 10 ml Documented by: Sodium Chloride (Sodium Chloride Flush 0.9% 10 Ml Syringe) 10 ml IVP 0100,0900,1700 [facility] Last Admin: 10/24/20 08:31 Dose: 10 ml Documented by: Thiamine HCl (Thiamine 100 Mg Tablet) 100 mg PO DAILY [facility] Last Admin: 10/24/20 08:29 Dose: 100 mg Documented by: Doxepin HCl 250 mg ORAL QPM 04/07/16 lisinopriL [Lisinopril] 5 mg PO DAILY 08/03/18 ALPRAZolam [Alprazolam] 0.5 mg PO TID PRN 10/02/20 Levothyroxine [Synthroid] 100 mcg PO [id number] 10/02/20 Albuterol Sulf [Ventolin Hfa Inhaler] 2 puffs INH Q6H PRN 10/20/20 - Allergies Allergies/Adverse Reactions: Allergies Allergy/AdvReac Type Severity Reaction Status Date / Time No Known Drug Allergies Allergy Verified 10/19/20 15:17 Review of Systems - Constitutional Constitutional: reports: Fatigue, Poor appetite - Ears, Nose & Throat Ears, Nose & Throat: reports: Hearing loss, Dental decay, Dry mouth - Cardiovascular Cardiovascular: reports: Exertional dyspnea (patient very panicky with any activity), Decr. exercise tolerance - Respiratory Respiratory: reports: SOB with exertion - Gastrointestinal Gastrointestinal: reports: Other (ate a few bites this am; took some water with pills) - Genitourinary Genitourinary: reports: Incontinence - Musculoskeletal Musculoskeletal: reports: Stiffness, Muscle weakness, Assistive devices (at home using walker) - Integumentary Integumentary: reports: Dryness, Other (lever tender heel ulcer; new sacral decub with last hospitalization exacerbated by diarrhea) - Neurological Neurological: reports: General weakness, Memory problems, Seizures, Slurred speech - Psychiatric Psychiatric: reports: Depression, Anxiety, Hallucinations, Aggitation, Behavior disturbances - Endocrine Endocrine: reports: Hypothyroidism - Hematologic/Lymphatic Hematologic/Lymph: reports: Anemia - All Other Systems All Other Systems: reports: Other (limited; patient is with garbled speech unable to participate) Physical Exam - Vital Signs Vital Signs: Vital Signs x48h Pulse Pulse Resp BP Pulse Ox 10/24/20 08:00 95 20 122/70 99 10/24/20 07:32 80 18 - Physical Exam General Appearance: positive: Alert, Mild distress, Other (garbled speech) Respiratory: positive: No respiratory distress Skin: positive: Pallor Neurologic/Psychiatric: positive: Weakness, Other (asleep) Palliative Care - POLST Patient has POLST: Yes POLST Status: DNR, Comfort Measures (completed with PCP 09/20/2019) Performance Status: Patient has been having declining functional status overall, currently is bedb ound, difficult to reposition, is not participatory. PT and OT are continued to trial, has been hope was that she would be participatory in able to ambulate again. With current patient's decline in cognitive status at this point in time is not participatory or realistic. - Palliative Care Discussion: Family meeting with myself, hospice nurse Zahida BOJORQUEZ, Clair from social worker delinquency prevention, regarding goals. Has been at this point time has changed his goals of care as far as placement, but would like to trial her at home, his stepdaughter/her daughter Valeria who is a caregiver is coming up tonight, and hoping to transition her home tomorrow. He is not sure how long Valeria is staying, but feels that he would give patient adequate support and be able to help tease out how best to care for Brenna in the context of her current status and ongoing decline. He would like to have " a little window", though does recognize overall her decline, we did discuss hospice is not necessarily always imminent even if she improved short-term, but is that 6-month window. Given her changes over the last few months and more acutely over the last few weeks this would not be unrealistic to expect her continued decline. We did discuss in the context of this, rather than immediate transition to hospice, give them 24-48 hrs., and then have Zahida come to an introductory visit and include Valeria and discussion and decision making. This seemed to relieve Preet and help with his current level of stress. If she does improve, or they would want more of a rehab component, she would need to be eating and drinking regularly, to regain any strength. She would also need to be participatory before bringing in home services. Results - Lab Results Lab results reviewed: Yes Fish Bones: 10/24/20 05:14 10/24/20 05:14 Lab and Imaging Results: Lab Results x24hrs 10/24/20 10/24/20 10/24/20 Range/Units 07:56 05:14 05:14 WBC 4.9 (4.8-10.8) x10^3/uL RBC 3.14 L (4.20-5.40) 10^6/uL Hgb 9.8 L (12.0-16.0) g/dL Hct 32.3 L (37.0-47.0) % MCV 102.9 H (81.0-99.0) fL MCH 31.2 H (27.0-31.0) pg MCHC 30.3 L (32.0-36.0) g/dL RDW 14.8 (12.0-15.0) % Plt Count 180 (130-450) 10^3/uL MPV 9.6 (7.9-10.8) fL Neut # (Auto) 3.5 (1.5-6.6) 10^3/uL Lymph # (Auto) 1.1 L (1.5-3.5) 10^3/uL Rusk # (Auto) 0.2 (0.0-1.0) 10^3/uL Eos # (Auto) 0.0 (0.0-0.7) 10^3/uL Baso # (Auto) 0.0 (0.0-0.1) 10^3/uL Absolute Nucleated RBC 0.00 x10^3/uL Nucleated RBC % 0.0 /100WBC Sodium 139 (135-145) mmol/L Potassium 4.5 (3.5-5.0) mmol/L Chloride 109 (101-111) mmol/L Carbon Dioxide 25 (21-32) mmol/L Anion Gap 5.0 L (6-13) BUN 5 L (6-20) mg/dL Creatinine 0.6 (0.4-1.0) mg/dL Estimated GFR (MDRD) 97 (>89) Glucose 123 H (70-100) mg/dL POC Whole Bld Glucose 116 H (70 - 100) mg/dL Calcium 7.7 L (8.5-10.3) mg/dL 10/23/20 10/23/20 Range/Units 20:34 16:46 WBC (4.8-10.8) x10^3/uL RBC (4.20-5.40) 10^6/uL Hgb (12.0-16.0) g/dL Hct (37.0-47.0) % MCV (81.0-99.0) fL MCH (27.0-31.0) pg MCHC (32.0-36.0) g/dL RDW (12.0-15.0) % Plt Count (130-450) 10^3/uL MPV (7.9-10.8) fL Neut # (Auto) (1.5-6.6) 10^3/uL Lymph # (Auto) (1.5-3.5) 10^3/uL Rusk # (Auto) (0.0-1.0) 10^3/uL Eos # (Auto) (0.0-0.7) 10^3/uL Baso # (Auto) (0.0-0.1) 10^3/uL Absolute Nucleated RBC x10^3/uL Nucleated RBC % /100WBC Sodium (135-145) mmol/L Potassium (3.5-5.0) mmol/L Chloride (101-111) mmol/L Carbon Dioxide (21-32) mmol/L Anion Gap (6-13) BUN (6-20) mg/dL Creatinine (0.4-1.0) mg/dL Estimated GFR (MDRD) (>89) Glucose (70-100) mg/dL POC Whole Bld Glucose 82 93 (70 - 100) mg/dL Calcium (8.5-10.3) mg/dL Impression and Recommendations - Palliative Care Impression: This is a 80-year-old woman who presents with failure to thrive, most likely related to her chronic alcoholism, protein calorie malnutrition with total protein 4.4 and albumin 1.9, lever tender underlying anxiety disorder and benzodiazepine dependence, she has had both functional and cognitive decline, and now presents with severe anorexia. It is unclear if this is behavioral, or exacerbated symptom of her current underlying status. Palliative care meeting with to further explore goals of care, this remains complex in the context of patient frailty and underlying psychosocial situation. Recommendations/Counseling Done: 1. Failure to thrive. This is multifactorial, in the context of her chronic alcoholism, protein calorie malnutrition, declining functional and cognitive status, and refusal/failure to eat. We are trialing appetite stimulant of d examethasone 2 mg a.m. and initiating mirtazapine. She did take a few bites this morning, continues to be fairly resistant to intake of food and fluids. Patient does understand patient continues to not eat and drink could have expected ongoing decline in survival of weeks. Would like to trial her home and see if this improves, will have hospice introductory visit on , for further evaluation and transition to hospice if appropriate. 2. AMS. Presents with garbled speech and restlessness, unable to follow cueing, unable to engage in exam or conversation. Unable to really tease out from how much different this is from baseline, reports this has been more problematic the last 2 or 3 days of hospitalization. Patient does appear to be having hallucinations and delusions,unclear if continued withdrawal symptoms or possibly hospital delerium. Patient is back on baseline dosing. 3. Advanced care planning. Patient does have a POLST that was completed and August 2019, do not attempt resuscitation and comfort measures, as well as do not use antibiotics except for symptom management and no medically assisted nutrition. at this point in time, would like to trial short period at home to see if she improves, will have daughter for support as well as caregiving. Patient would meet hospice criteria of protein malnutrition with an albumin of 1.9 and no further expected improvement. If patient does improve, our goals may be to enlist support from home health team. Will include face to face in case. [id number]. Is a taxing considerable effort for the patient leave the home secondary to profound weakness secondary to malnutrition and deconditioning. Patient would need home health nursing for wound care, evaluated treat, home health aide for personal care and bathing assist, and PT/OT for rehab and strengthening as well as home safety. 60 minutes with greater than 50% of this done in counseling regarding goals of care, transition plan, continuum of care including hospice and anticipatory guidance.
--- NOTE | 2020-10-24 12:19 | PROVIDER PROGRESS NOTE ---
Subjective - Prog Note Date Prog Note Date: 10/24/20 - Subjective Pt reports feeling: Improved Subjective: Pt speech garbled, intermittently following commands. reports she slept well overnight and nursing was able to change and turn her when needed. No apparent discomfort on exam. Objective - Vital Signs/Intake & Output Reviewed Vital Signs: Yes Vital Signs: Vital Signs x48h Pulse Pulse Resp BP Pulse Ox 10/24/20 08:00 95 20 122/70 99 10/24/20 07:32 80 18 Intake & Output: Intake & Output 10/21/20 10/22/20 10/23/20 10/24/20 23:59 23:59 23:59 23:59 Intake Total 2000 7049.023 8469.25 448.75 Output Total 500 Balance 1500 3095.650 5512.25 448.75 - Objective General Appearance: positive: No acute distress, Alert, Other (Restless but no apparent distress) Eyes Bilateral: positive: Normal inspection, PERRL ENT: positive: ENT inspection nml Neck: positive: Nml inspection Respiratory: positive: Chest non-tender, No respiratory distress, Breath sounds nml Cardiovascular: positive: Regular rate & rhythm Peripheral Pulses: 2+ Radial (R), 2+ Radial (L), 2+ Dorsalis pedis (R), 2+ Dorsalis pedis (L) Abdomen: positive: Non-tender, No organomegaly, Nml bowel sounds, No distention Skin: positive: Warm, Dry, Other (L heel with approximately 1cm x 0.5cm x 0.2cm stage unspecified pressure injury, tissue is moist and red. No signs of wound infection. Buttocks with skin breakdown extending across the buttocks down through the perineum to the labia. Tissue is dry, pink and blanching, much improved from admission) Extremities: positive: Full ROM, Nml appearance Neurologic/Psychiatric: positive: Slurred/abnml speech (garbled speech, difficult to understand), Other (intermittently following commands, unable to test strength and sensory) - Lab Results Fish Bones: 10/25/20 04:50 10/25/20 04:50 Other Labs: Lab Results x24hrs 10/24/20 10/24/20 10/24/20 Range/Units 11:58 07:56 05:14 WBC (4.8-10.8) x10^3/uL RBC (4.20-5.40) 10^6/uL Hgb (12.0-16.0) g/dL Hct (37.0-47.0) % MCV (81.0-99.0) fL MCH (27.0-31.0) pg MCHC (32.0-36.0) g/dL RDW (12.0-15.0) % Plt Count (130-450) 10^3/uL MPV (7.9-10.8) fL Neut # (Auto) (1.5-6.6) 10^3/uL Lymph # (Auto) (1.5-3.5) 10^3/uL Hancock # (Auto) (0.0-1.0) 10^3/uL Eos # (Auto) (0.0-0.7) 10^3/uL Baso # (Auto) (0.0-0.1) 10^3/uL Absolute Nucleated RBC x10^3/uL Nucleated RBC % /100WBC Sodium 139 (135-145) mmol/L Potassium 4.5 (3.5-5.0) mmol/L Chloride 109 (101-111) mmol/L Carbon Dioxide 25 (21-32) mmol/L Anion Gap 5.0 L (6-13) BUN 5 L (6-20) mg/dL Creatinine 0.6 (0.4-1.0) mg/dL Estimated GFR (MDRD) 97 (>89) Glucose 123 H (70-100) mg/dL POC Whole Bld Glucose 110 H 116 H (70 - 100) mg/dL Calcium 7.7 L (8.5-10.3) mg/dL 10/24/20 10/23/20 10/23/20 Range/Units 05:14 20:34 16:46 WBC 4.9 (4.8-10.8) x10^3/uL RBC 3.14 L (4.20-5.40) 10^6/uL Hgb 9.8 L (12.0-16.0) g/dL Hct 32.3 L (37.0-47.0) % MCV 102.9 H (81.0-99.0) fL MCH 31.2 H (27.0-31.0) pg MCHC 30.3 L (32.0-36.0) g/dL RDW 14.8 (12.0-15.0) % Plt Count 180 (130-450) 10^3/uL MPV 9.6 (7.9-10.8) fL Neut # (Auto) 3.5 (1.5-6.6) 10^3/uL Lymph # (Auto) 1.1 L (1.5-3.5) 10^3/uL Hancock # (Auto) 0.2 (0.0-1.0) 10^3/uL Eos # (Auto) 0.0 (0.0-0.7) 10^3/uL Baso # (Auto) 0.0 (0.0-0.1) 10^3/uL Absolute Nucleated RBC 0.00 x10^3/uL Nucleated RBC % 0.0 /100WBC Sodium (135-145) mmol/L Potassium (3.5-5.0) mmol/L Chloride (101-111) mmol/L Carbon Dioxide (21-32) mmol/L Anion Gap (6-13) BUN (6-20) mg/dL Creatinine (0.4-1.0) mg/dL Estimated GFR (MDRD) (>89) Glucose (70-100) mg/dL POC Whole Bld Glucose 82 93 (70 - 100) mg/dL Calcium (8.5-10.3) mg/dL Sepsis Event Note (H) - Evaluation Current Stage of Sepsis: Ruled out Assessment/Plan - Problem List (1) Altered mental status Impression: At admission she was obtunded, felt to be due to excess Xanax use. Additionally, has reported she was previously using 2.5L NC at home continously but has only required 1L NC here; she may have had CO2 narcosis at home from excessive supplemental oxygen and high O2 sats, causing no respiratory hypoxic drive to ventilate in a COPDer. For the last 3 days she has been more and more awake but also more agitated and overnight 10/22 she had a seizure. The Oil Processing Technician saw the patient and the was at bedside and said she has had 2 prior seizures, both from Xanax withdrawal. We therefore need to use Xanax at a dose that does not cause oversedation but also treats her anxiety and prevent seizures. She has not participated in PT x3 days due to agitation but per her reports she did allow nursing to help get her cleaned up overnight without getting agitated. 1. Xanax twice daily, 1200 and 2200 (2) COPD without exacerbation Impression: Stable x 24 hours, no tripoding or pursed lip breathing. Pt's has previously reported that the patient was on 2.5 L oxygen at home continuously. Here she has good oxygen saturations on 1L O2 per n.c. This suggests that she may have had CO2 narcosis at home from excessive supplemental oxygen and high O2 sats, causing no respiratory hypoxic drive to ventilate in a COPDer. 1. Supplemental O2 as needed 2. DuoNebs PRN (3) Anorexia Impression: She has had poor appetite and intake this admission. Per prior MD, realizes that she is "shutting down". He does not want her to get a feeding tube. He said he understands this may be leading to Comfort Care then Hospice. At family request, she was started on Decadron and Mirtazapine for appetite stimulation after consultation with Palliative Care. Pt ate 1/2 her mashed potatoes at lunch today, and feels that she is hungry and they just need to figure out what she will be willing to eat. 1. Continue Decadron 2mg po daily x 5 days (end 10/27) and Mirtazapine 7.5mg po Q HS x 1 week then 15mg po QHS 2. Encourage oral intake 3. IVF for hydration 4. Palliative Care following (4) Malnutrition Impression: She refuses to eat, despite urging from the staff and her . Nutrition consult completed and she has been transitioned to a pureed diet. She was started on appetite stimulants yesterday and reportedly ate a few bites of dinner and 1/2 her mashed potatoes so far today. We have resumed her Iron replacement (in liquid form) and also started Thiamine, vitamins and Zinc, as per Nutrition. Ensure was added with meal trays. 1. Pureed Diet 2. Palliative Care following, Pt may transition to Hospice care at home if she does not continue to eat- and daughter would like to see how she does for a few days at home before agreeing to hospice Qualifiers: Protein-calorie malnutrition severity: unspecified severity (5) History of alcohol abuse Impression: Pt used to drink beer for many years then switched to being a wine drinker every day and most recently was drinking a bottle of vodka a day. She was already bed-ridden, so he brought her vodka in mixed drinks, because it "relaxed her because she had alot of anxiety", and "the vodka was mixed with either orange juice or tomato juice for the calories and electrolytes", he said. At the last admission, she may have gone through alcohol withdrawal. When she got home 2 weeks ago, she did stop drinking alcohol daily, and he no longer made her any alcoholic drinks whatsoever. Head CT done, showed brain atrophy. A cog eval was performed 3 weeks ago and she scored 22/30, consistent with mild-moderate dementia. Her reports that occasionally at home she believes he is her father and can get agitated with him. Her intentional tremor and garbled speech suggest that she has effects of alcohol-induced dementia or Wernicke's encephalopathy. 1. Daily thiamine 2. Seizure precautions given hx seizure withdrawals (6) Anxiety Impression: Reported that "she has anxiety" and that is why she has been on Doxepin for many years as well as Xanax. notes she seems more anxious recently and has difficulty allowing nursing to touch and clean her. She also was stating "I want to go home" during my visit with her this morning. (7) Dementia Impression: She carries this Dx in her chart. Unknown if this is Wernicke's Encephalopathy, from years of alcohol abuse, or Alzheimers. At the last admission, a cognitive eval was done by OT, and she scored 22/30, which equates to mild-moderate dementia. She cannot make her own decisions therefore. She has not been eating and was started on appetite stimulants, however has agreed that he will call hospice if she continues not to eat after a few days at home with him and their daughter. The is allowed to stay in the room with her; she is more amenable to turning and nursing care when she is with him. Qualifiers: Dementia type: unspecified type (8) Anemia Impression: Oral iron replacement therapy has been ordered. Qualifiers: Anemia type: iron deficiency (9) Sacral decubitus ulcer Impression: Resolved, all that remains is incontinence associated dermatitis. The reported that she lays supine when sleeping and has not walked in about a week and a half. He reports that at home he was applying ointment and bandages to pr otect the area. The new breakdown on the buttocks and labia occurred 2 days prior to admission when she was not toileting. Nursing has been turning and repositioning her while she has been in bed. reports they turned away home health 2 weeks ago because she gets very anxious to have strangers touching her and he believed he could care for her adequately. She did have diarrhea, and Culturelle has been ordered to prevent further anti- biotic associated diarrhea. (10) Incontinence associated dermatitis Impression: Severe incontinence associated dermatitis seen on admission- per admit photos the skin was bright red and denuded extending from sacrum across the buttocks over the perineum and to the labia. reports that until 2 days prior to admission she had been toileting appropriately at home and he was applying zinc cream to her skin. Over the 2 days prior to admission he had difficulty toileting her and getting the cream on her skin, hence the extreme skin breakdown. Nursing has been applying zinc barrier cream and changing her depends when they are soiled. On assessment today the skin is much improved and appears to be healing well. I discussed with the how to better care for this at home, and emphasized the importance of routinely toileting her and ensuring she is not in wet diapers/depends. He was also instructed to apply zinc barrier cream for protection. 1. Barrier cream as needed, keep the skin clean and dry (11) Decubitus ulcer, heel, left, unstageable Impression: She has had this for about a year, she was seeing her PCP about it, it started as a blood blister, it scabbed over and the scab fell off and all that was left was a tiny pinpoint but deep ulcer. At home he was applying Triple Antibiotic ointment to the area and covering with gauze. It has been left open to air here. The tissue is moist, red, and blanching and the wound appears stable. It can be staged as a healing full thickness pressure injury today. I have asked the nurses to cover it with a Mepilex bordered dressing, and instructed the this is a dressing that can stay in place for up to a week at home if needed. I showed him where to find them online and instructed him to ensure her heels are not on the bed when she is sleeping. 1. Mepilex, change Q7 days 2. Offload heels on pillows (ensure the heels are in the air) (12) HTN (hypertension) Impression: She was on Lisinopril 5 mg daily at home. It was stopped, since she had a "soft" BP from having inadequate oral intake. 10/22 BP jess to 150's and HR is 107. She was started on low dose B-1 selective B-kyleigh in a COPDer, using Toprol, for BP and HR control. She has had appropriate BP and HR since. 1. Continue Lisinopril. Qualifiers: Hypertension type: essential hypertension Qualified Code(s): I10 - Essential (primary) hypertension (13) Hypothyroidism Impression: She does swallow her morning meds, one of which is Synthroid. The TSH was checked at the last recent admission 2 weeks ago, and was low at 0.14, but the free T4 was normal at 1.3. 1. Continue home dose Synthroid (14) Hypokalemia Impression: Resolved. K 4.5 today.
[2020-10-24] MEDS: ALPRAZolam 0.25 MG TABLET PO SCH ×2 (13:02→21:56)
[2020-10-24] MEDS: FERROUS SULFATE 300 MG/5 ML UDC PO SCH (13:02)
[2020-10-24] MEDS: MIRTAZAPINE 15 MG TABLET PO SCH (21:56)
[2020-10-24] MEDS: DOXEPIN 25 MG CAPSULE PO SCH (21:56)
[2020-10-25 05:28] LABS: BASOPHILS % (AUTO) 0.7 %; EOSINOPHILS # (AUTO) 0.1 10^3/uL (0.0-0.7); LYMPHOCYTES # (AUTO) 1.8 10^3/uL (1.5-3.5); LYMPHOCYTES % (AUTO) 32.6 %; MEAN CORPUSCULAR HEMOGLOBIN 31.4 pg (27.0-31.0); MEAN CORPUSCULAR HGB CONC 30.3 g/dL (32.0-36.0); MEAN CORPUSCULAR VOLUME 103.8 fL (81.0-99.0); MEAN PLATELET VOLUME 9.8 fL (7.9-10.8); MONOCYTES # (AUTO) 0.4 10^3/uL (0.0-1.0); NEUTROPHILS # (AUTO) 3.2 10^3/uL (1.5-6.6); PLT - PLATELET COUNT 177 10^3/uL (130-450); RED BLOOD COUNT 3.18 10^6/uL (4.20-5.40); RED CELL DISTRIBUTION WIDTH 14.8 % (12.0-15.0); WHITE BLOOD COUNT 5.6 x10^3/uL (4.8-10.8)
[2020-10-25 05:36] LABS: CALCIUM 7.8 mg/dL (8.5-10.3); CREATININE 0.6 mg/dL (0.4-1.0); POTASSIUM 4.1 mmol/L (3.5-5.0)
[2020-10-25] MEDS: D5.45NS W/20 MEQ KCL 1,000 ML IV SCH (06:45)
[2020-10-25] MEDS: LEVOTHYROXINE 100 MCG TABLET PO SCH (06:45)
[2020-10-25] MEDS: PANTOPRAZOLE 40 MG VIAL IVP SCH (06:45)
[2020-10-25] MEDS: ZINC OXIDE 20% OINT 30 GM TUBE TOP PRN (06:58)
[2020-10-25] MEDS: SODIUM CHLORIDE FLUSH 0.9% 10 ML SYRINGE IVP SCH ×2 (06:59→09:49)
[2020-10-25] MEDS: BUDESONIDE 0.5 MG/2 ML NEB INH SCH ×2 (07:05→07:28)
[2020-10-25] MEDS: IPRATROPIUM/ALBUTEROL 3 ML NEB INH SCH ×3 (07:06→11:23)
--- NOTE | 2020-10-25 07:25 | Discharge Plan ---
Discharge Plan Problem Reviewed?: Yes Disposition: Home, Self Care Condition: Poor Prescriptions: Ipratropium/Albuterol [Duoneb] 3 ml INH Q6H #1 neb Nystatin [Nystop] 1 applic TOP BID #1 bottle Mirtazapine [Remeron] 7.5 mg PO QPM #30 tablet Metoprolol Succinate [Toprol Xl] 12.5 mg PO DAILY #30 tablet Thiamine [Vitamin B-1] 100 mg PO DAILY #30 tablet Zinc Oxide 20% Oint [Zinc Oxide] 1 applic TOP PRN PRN #1 tub PRN Reason: Skin Care Diet: Regular Activity Restrictions: Additional Comments (cannot be left alone) Shower Restrictions: No Driving Restrictions: Yes (no driving) Assistance Devices: Wheelchair Health Concerns: You had just been discharged from the hospital after presenting with confusion, malnutrition due to emphysema, overuse of sedatives. You returned confused again. You continue to have significant breakdown of your skin in your sacrum, left heel due to not getting out of bed. During her stay your tranquilizers were discontinued. However you had withdrawal seizures and needed to be resumed on those tranquilizers. We encourage you to not drink any more alcohol, continue the tranquilizers as needed. You use alprazolam. You continue to need wound care and will need help at home to take care of you. Your daughter has come in to help your take care of you. Plan of Treatment: 1. You will be sent home to see if you can bounce back a little bit with regards to nutrition and strength. 2. If you cannot, your family will be transitioning you to hospice 3. In order to see if you can gain weight, controlled her anxiety, we have started you on Remeron, Benadryl, thiamine, and will be treating skin breakdown with nystatin and zinc oxide. 4. Please continue to use blood pressure medications in the form of lisinopril and metoprolol. Metoprolol is to slow down your heart rate when you get very excited or anxious. Care Goals: To remain comfortable at home. And to be able to control your anxiety. To increase your weight through better eating. This will in turn allow your pressure ulcers to heal. Assessment: Patient is unable to cooperate and care planning. , as her advocate, has been meeting with social work and palliative care and has helped formulate care plan. No Smoking: If you smoke, Please STOP! Call for help. Follow-up with: Jessica Reyes ARNP [Provider Admit Priv/Credential] -
--- NOTE | 2020-10-25 09:31 | DISCHARGE SUMMARY ---
Discharge Summary Admit Date: 10/19/20 Discharge Date: 10/25/20 Discharging Provider: Stefani Baker Code Status: Do Not Attempt Resuscitation Condition at Discharge: Poor Discharge Disposition: 01 Home, Self Care - DIAGNOSES Discharge Diagnoses with Status of Each Condition: (1) Altered mental status Impression: Stable. At admission she was obtunded, felt to be due to excess Xanax use. Additionally, reported she was previously using 2.5L NC at home continuously but has only required 1L NC here; she may have had CO2 narcosis at home from excessive supplemental oxygen and high O2 sats, causing no respiratory hypoxic drive to ventilate in a COPDer. She has been more awake over the past several days, though did have a seizure on 10/22. Has not participated in PT due to AMS and getting agitated with PT. Occasionally able to be understand but also noted to be hallucinating. Likely this is her new baseline, though unclear if related to Wernicke's Encephalopathy vs dementia vs Alzheimer's. At last admission a Head CTwas done, showed brain atrophy. A cog eval was performed 3 weeks ago and she scored 22/30, consistent with mild-moderate dementia. Her reports that occasionally at home she believes he is her father and can get agitated with him. Her intentional tremor and garbled speech suggest that she has effects of alcohol-induced dementia or Wernicke's encephalopathy. Her Xanax was restarted and scheduled for BID and she has been tolerating this well. She is unable to make her own decisions at this time given her AMS. 1. Continue Xanax twice daily, 1200 and 2200 (2) COPD without exacerbation Impression: Stable. Noted to have increased weezing this morning but no increased oxygen needs or pursed lip breathing and tripoding. On reassessment 2 hours later this morning after she received her DuoNebs no wheezing noted and she was resting comfortably. Pt's has previously reported that the patient was on 2.5 L oxygen at home continuously. Here she has good oxygen saturations on 1L O2 per n.c. This suggests that she may have had CO2 narcosis at home from excessive supplemental oxygen and high O2 sats, causing no respiratory hypoxic drive to ve ntilate in a COPDer. Per request a home nebulizer machine was ordered for administration of bronchodialators (DuoNebs) to help treat her COPD (emphysema) as they provide relief for her SOB. 1. Supplemental O2 as needed 2. DuoNebs PRN (3) Anorexia Impression: Stable. She has had poor appetite and intake this admission. Her does not want her to get a feeding tube. He said he understands this may be leading to Comfort Care and Hospice. At family request, she was started on Decadron and Mirtazapine 10/23 for appetite stimulation after consultation with Palliative Care. Pt has had a small increase in appetite, and feels that she is hungry and they just need to figure out what she will be willing to eat. 1. Continue Decadron 2mg po daily x 5 days (last dose 10/27) and Mirtazapine 7.5mg po QHS x 1 week (last dose 10/29) then 15mg po QHS 2. Encourage oral intake 3. Palliative Care following (4) Malnutrition Impression: Stable. She refuses to eat, despite urging from the staff and her . Nutrition consult completed and she has been transitioned to a pureed diet. She was started on appetite stimulants 10/23 and reportedly has had a small increase in intake. We have resumed her Iron replacement (in liquid form) and also started Thiamine, vitamins and Zinc, as per Nutrition. Ensure was added with meal trays and she should have these at home. 1. Pureed Diet 2. Palliative Care following, Pt may transition to Hospice care at home if she d oes not continue to eat- and daughter would like to see how she does for a few days at home before agreeing to hospice Qualifiers: Protein-calorie malnutrition severity: unspecified severity (5) History of alcohol abuse Impression: Stable. Pt used to drink beer for many years then switched to being a wine drinker every day and most recently was drinking a bottle of vodka a day. She was already bed-ridden, so he brought her vodka in mixed drinks, because it "relaxed her because she had alot of anxiety", and "the vodka was mixed with either orange juice or tomato juice for the calories and electrolytes", he said. At the last admission, she may have gone through alcohol withdrawal. When she got home 2 weeks ago, she did stop drinking alcohol daily, and he no longer made her any alcoholic drinks whatsoever. Head CT done, showed brain atrophy. A cog eval was performed 3 weeks ago and she scored 22/30, consistent with mild- moderate dementia. Her reports that occasionally at home she believes he is her father and can get agitated with him. Her intentional tremor and garbled speech suggest that she has effects of alcohol-induced dementia or Wernicke's encephalopathy. 1. Daily thiamine 2. Seizure precautions given hx seizure withdrawals (6) Anxiety Impression: Stable. Reported that "she has anxiety" and that is why she has been on Doxepin for many years as well as Xanax. notes she seems more anxious recently and has difficulty allowing nursing to touch and clean her. She was calmer overnight and allowed nursing to perform nursing cares without becoming agitated per . (7) Dementia Impression: Stable. She carries this Dx in her chart. Unknown if this is Wernicke's Encephalopathy, from years of alcohol abuse, or Alzheimers. At the last admission, a cognitive eval was done by OT, and she scored 22/30, which equates to mild-moderate dementia. She cannot make her own decisions therefore. She has not been eating and was started on appetite stimulants, however has agreed that he will call hospice if she continues not to eat after a few days at home with him and their daughter. Qualifiers: Dementia type: unspecified type (8) Anemia Impression: Oral iron replacement therapy has been ordered. Qualifiers: Anemia type: iron deficiency (9) Sacral decubitus ulcer Impression: Resolved, present on admission, all that remains is incontinence associated dermatitis. The reported that she lays supine when sleeping and has not walked in about a week and a half. He reports that at home he was applying ointment and bandages to protect the area. The new breakdown on the buttocks and labia occurred 2 days prior to admission when she was not toileting. Nursing has been turning and repositioning her while she has been in bed. reports they turned away home health 2 weeks ago because she gets very a nxious to have strangers touching her and he believed he could care for her adequately. She did have diarrhea, and Culturelle has been ordered to prevent further anti- biotic associated diarrhea. She will be discharging home with her and daughter. has been educated on importance of skin care. (10) Incontinence associated dermatitis Impression: Improved. Severe incontinence associated dermatitis seen on admission- per admit photos the skin was bright red and denuded extending from sacrum across the buttocks over the perineum and to the labia. reports that until 2 days prior to admission she had been toileting appropriately at home and he was applying zinc cream to her skin. Over the 2 days prior to admission he had difficulty toileting her and getting the cream on her skin, hence the extreme skin breakdown. Nursing has been applying zinc barrier cream and changing her depends when they are soiled. On assessment today the skin is much improved and appears to be healing well. I discussed with the how to better care for this at home, and emphasized the importance of routinely toileting her and ensuring she is not in wet diapers/depends. He was also instructed to apply zinc barrier cream for protection. 1. Barrier cream as needed, keep the skin clean and dry (11) Decubitus ulcer, heel, left, unstageable Impression: Improved. Present on admission. She has had this for about a year, she was seeing her PCP about it. Per report it started as a blood blister, it scabbed over and the scab fell off and all that was left was a tiny pinpoint but deep ulcer. At home he was applying Triple Antibiotic ointment to the area and covering with gauze. Nursing started covering the wound with Mepilex yesterday. The tissue is moist, red, and blanching and the wound appears stable. It can be staged as a healing full thickness pressure injury today. I have instructed the on use of the Mepilex and that this is a dressing that can stay in place for up to a week at home if needed. I showed him where to find them online and instructed him to ensure her heels are not on the bed when she is sleeping. 1. Mepilex, change Q7 days 2. Offload heels on pillows (ensure the heels are in the air) (12) HTN (hypertension) Impression: Stable. She was on Lisinopril 5 mg daily at home. It was stopped, since she had a "soft" BP from having inadequate oral intake. 10/22 BP jess to 150's and HR is 107. She was started on low dose B-1 selective B-kyleigh in a COPDer, using Toprol, for BP and HR control. She has had appropriate BP and HR since. 1. Continue Lisinopril. Qualifiers: Hypertension type: essential hypertension Qualified Code(s): I10 - Essential (primary) hypertension (13) Hypothyroidism Impression: Stable. She does swallow her morning meds, one of which is Synthroid. The TSH was checked at the last recent admission 2 weeks ago, and was low at 0.14, but the free T4 was normal at 1.3. 1. Continue home dose Synthroid (14) Hypokalemia Impression: Resolved. K 4.1 today. - HPI History of Present Illness: Patient is a 80 y/o female who presented to the ED via ambulance around 2 PM today 10/19/20 with altered mental status. She was discharged from [facility] about 2 weeks ago. She had presented at that time with altered mental status thought to be due to overuse of benzodiazepine. It was reported that her speech was slurred and she seemed somewhat obtunded upon arrival to the ED today. However talking with her he reports that the patient had been given a dose of Xanax around 1 PM. He explained that the patient had been doing well since discharge. She had been ambulating more and was making an attempt to eat more. However her oral intake has steadily decreased over the past few days. She was discharged home with a prescription of cefdinir to take for about 3 more days. She was experiencing diarrhea after completion of the antibiotics. Diarrhea stopped 3 days ago. The patient's chadwick and buttock area appears very hyperemic. Work-up in the ED included a BMP which showed a potassium of 2.7. The patient has 2+ lower extremity pitting edema. Her albumin level is 2.1. Her reports that the patient has not had any alcohol since discharge 2 weeks ago. Ammonia level was within normal limits. CT of the brain without contrast was unremarkable. At bedside the patient mainly shouts out in irritation at any attempt to move her. She does not seem to understand questions asked currently. She keeps insisting on being taken to her room. She is not oriented to place time or reason at the moment. She has a 2+ ulcer on her left heel. - CONSULTS | PROCEDURES Consultations: Palliative Care, Nutrition, Social Work - HOSPITAL COURSE Hospital Course: Pt admitted with AMS 10/19, thought to be related to overuse of benzodiazepine. She was also noted to have decreased appetite and increased diarrhea that had stopped 3 days prior to admission. She was found to have skin breakdown on the buttocks and sacrum as well as the left heel. She had pitting lower extremity edema and hypokalemia. She was noted to be shouting in irritation when staff attempted to move her and was not appearing to understand questions, not oriented. 10/20 Potassium was replaced and by discharge was within normal limits. She gradually became more alert but remained disoriented except to self and . Speech was often difficult to understand and she continued to have poor appetite and oral intake. She has a longstanding history of alcohol abuse though has not drank in the last 2-3 weeks. She had a seizure on 10/22 but no further seizure activity noted. It was unclear if this was related to alcohol withdrawal or benzo withdrawal given her Xanax use. She was seen by nutrition for malnutrition and anorexia and placed on a soft and pureed diet. Appetite stimulants were started on 10/23 and she has had minimal response. Palliative care was consulted and continues to follow the patient. She was also seen by Hospice. By 10/25 her lower extremity edema resolved and her buttocks/sacral skin breakdown improved. The left heel ulcer remained stable and without signs of wound infection. She utilized 1 L NC throughout the stay, less than the reported 2.5L used at home. She had brief wheezing and increased oxygen needs when first waking on the morning of 10/25, after receiving DuoNebs her lungs were clear throughout and no further wheezing or respiratory distress was noted. Pt discharged to home with her and daughter via ambulance 10/25. She is a DNR. She is not oriented or able to make medical decisions at this time. Her plans to monitor her skin and oral intake, and if not making improvements after 2-3 days will contact Hospice. - ALLERGIES Allergies/Adverse Reactions: Allergies Allergy/AdvReac Type Severity Reaction Status Date / Time No Known Drug Allergies Allergy Verified 10/19/20 15:17 - MEDICATIONS Home Medications: Ambulatory Orders Medication Instructions Recorded Confirmed lisinopriL [Lisinopril] 5 mg PO DAILY 08/03/18 10/20/20 ALPRAZolam [Alprazolam] 0.5 mg PO TID PRN 10/02/20 10/20/20 Levothyroxine [Synthroid] 100 mcg PO [id number] 10/02/20 10/20/20 Albuterol Sulf [Ventolin Hfa 2 puffs INH Q6H PRN 10/20/20 10/20/20 Inhaler] Ipratropium/Albuterol [Duoneb] 3 ml INH Q6H #1 neb 10/25/20 Lactobacillus Rhamnosus GG 1 cap PO DAILY 10/25/20 [Culturelle] Metoprolol Succinate [Toprol Xl] 12.5 mg PO DAILY #30 tablet 10/25/20 Mirtazapine [Remeron] 7.5 mg PO QPM #30 tablet 10/25/20 Nystatin [Nystop] 1 applic TOP BID #1 bottle 10/25/20 Thiamine [Vitamin B-1] 100 mg PO DAILY #30 tablet 10/25/20 Zinc Oxide 20% Oint [Zinc Oxide] 1 applic TOP PRN PRN #1 tub 10/25/20 diphenhydrAMINE [Benadryl] 25 mg PO QPM PRN 10/25/20 - PHYSICAL EXAM AT DISCHARGE General Appearance: positive: Alert Eyes Bilateral: positive: Normal inspection, PERRL ENT: positive: ENT inspection nml, No signs of dehydration Neck: positive: Nml inspection Respiratory: positive: Chest non-tender, Wheezes (LLL) Cardiovascular: positive: Regular rate & rhythm, No murmur, No gallop Peripheral Pulses: positive: 2+ Abdomen: positive: Non-tender, No organomegaly, Nml bowel sounds, No distention Skin: positive: Decubitus (L Heel), Other (incontinence associated dermatitis from buttocks extending down the perineum to the labia) Extremities: positive: Non-tender, Full ROM, Nml appearance, No pedal edema Neurologic/Psychiatric: positive: Other (oriented to self and person, difficult to understand speech. intermittently following commands, speech is nonsensical) - LABS Result Diagrams: 10/25/20 04:50 10/25/20 04:50 - DIAGNOSTIC IMAGING Diagnostic Imaging Results: Final report reviewed Diagnostic Imaging Results Comments: Head CT 10/19 Postoperative and degenerative changes seen - SEPSIS Current Stage of Sepsis: Ruled out - TIME SPENT Time Spent in Discharge (Minutes): 35
[2020-10-25] MEDS: LACTOBACILLUS RHAMNOSUS GG CAPSULE PO SCH (09:49)
[2020-10-25] MEDS: METOPROLOL SUCCINATE 25 MG TABLET PO SCH (09:49)
[2020-10-25] MEDS: ENOXAPARIN 40 MG/0.4 ML SYRINGE SUBQ SCH (09:49)
[2020-10-25] MEDS: THIAMINE 100 MG TABLET PO SCH (09:49)
[2020-10-25] MEDS: dexAMETHasone 4 MG TABLET PO SCH (09:49)
[2020-10-25] MEDS: PRENATAL VITAMIN TABLET PO SCH (09:49)
[2020-10-25] MEDS: NYSTATIN POWDER 15 GM TOP SCH (09:49)
[2020-10-25] MEDS: ALPRAZolam 0.25 MG TABLET PO SCH (12:34)
[2020-10-25] MEDS: FERROUS SULFATE 300 MG/5 ML UDC PO SCH (12:34)
[2020-10-25 15:48] VITALS: BP 125/49
== END 2020-10-25 15:40 | disposition home or self-care (01) | DRG 947 ==
LOC: EDUNIT# → ED 15:07 → MS2 18:35
PROVIDERS: ADMIT Internal Medicine; ATTEND Specialist
DX: R41.82 Altered mental status, unspecified (principal); E83.51 Hypocalcemia; L89.623 Pressure ulcer of left heel, stage 3; E43 Unspecified severe protein-calorie malnutrition; R82.4 Acetonuria; F13.20 Sedative, hypnotic or anxiolytic dependence, uncomplicated; D64.9 Anemia, unspecified; R27.0 Ataxia, unspecified; L89.151 Pressure ulcer of sacral region, stage 1; L89.620 Pressure ulcer of left heel, unstageable; E51.2 Wernicke's encephalopathy; F10.10 Alcohol abuse, uncomplicated; J43.9 Emphysema, unspecified; R63.0 Anorexia; Z20.822 Contact with and (suspected) exposure to COVID-19; Z99.81 Dependence on supplemental oxygen; R44.3 Hallucinations, unspecified; F03.90 Unspecified dementia, unspecified severity, without behavioral disturbance, psychotic disturbance, mood disturbance, and anxiety; R25.1 Tremor, unspecified; F41.9 Anxiety disorder, unspecified; D50.9 Iron deficiency anemia, unspecified; L89.159 Pressure ulcer of sacral region, unspecified stage; L89.899 Pressure ulcer of other site, unspecified stage; L30.8 Other specified dermatitis; R32 Unspecified urinary incontinence; I10 Essential (primary) hypertension; E03.9 Hypothyroidism, unspecified; E87.6 Hypokalemia; R60.0 Localized edema; T42.4X1A Poisoning by benzodiazepines, accidental (unintentional), initial encounter; R47.81 Slurred speech; Y92.9 Unspecified place or not applicable; Z66 Do not resuscitate; F32.9 Major depressive disorder, single episode, unspecified; Z87.891 Personal history of nicotine dependence; R26.81 Unsteadiness on feet; Z51.5 Encounter for palliative care; F10.20 Alcohol dependence, uncomplicated; Z87.440 Personal history of urinary (tract) infections; R62.7 Adult failure to thrive; E86.0 Dehydration; H91.93 Unspecified hearing loss, bilateral; Z68.24 Body mass index [BMI] 24.0-24.9, adult
CPT/HCPCS: 36415; 70450; 80048; 80053; 80076; 81003; 82009; 82140; 82272; 82803; 83605; 83690; 83735; 84439; 84443; 85025; 87631; 93005; 94640; 96374; 97161; 97166; 97530; 97535; 99223; 99233; 99285; A9270; J1200; J1650; J2060; J3411; J7626; J8540; 0202U; 80320; 81001; 87086

== ENCOUNTER 2020-10-25 15:56 | Outpatient (CLI) | payer MEDICARE, OTHER | END 2020-10-25 15:57 | disposition home or self-care (01) | LOC: EMS 15:56 | PROVIDERS: ATTEND Specialist | DX: F03.90 Unspecified dementia, unspecified severity, without behavioral disturbance, psychotic disturbance, mood disturbance, and anxiety (principal); R62.7 Adult failure to thrive; L89.90 Pressure ulcer of unspecified site, unspecified stage | CPT/HCPCS: A0425; A0428 ==